=== PATIENT | female | born 1965 | race Caucasian/White ===

== ENCOUNTER 2024-07-30 07:55 | Outpatient (OUT) | payer MEDICAID, SELFPAY ==
--- NOTE | 2024-07-30 08:01 | CT_ITS ---
[address] [address] Patient Name: SHIMON FRYE MRN: [id number] date: 1965 Sex: F Assigned Patient Location: CT Current Patient Location: Accession/Order Number: [id number] Exam Date: 07/30/2024 08:09 Report Date: 07/31/2024 06:40 At the request of: RIGO GARZA Procedure: CT abdomen pelvis wo con EXAMINATION: CT abdomen pelvis wo con HISTORY: Calculus Of Kidney, Flank Pain ; right flank pain COMPARISON: CT abdomen pelvis 06/08/2022 TECHNIQUE: Axial, Coronal, and Sagittal images were obtained without and/or with IV contrast as indicated by examination type. Dose reduction techniques were achieved by using automated exposure control and/or adjustment of mA and/or kV according to patient size and/or use of iterative reconstruction technique. FINDINGS: LUNG BASES: No visible pulmonary or pleural disease. LIVER: No enlargement, atrophy, suspicious density, or significant focal lesion. BILIARY: Cholecystectomy. PANCREAS: No lesion, fluid collection, or abnormal duct dilatation. SPLEEN: No enlargement or focal lesion. ADRENALS: No mass or enlargement. KIDNEYS: No mass, obstruction, or calcification. BOWEL/MESENTERY: Moderate to large stool burden. No visible mass, obstruction, or bowel wall thickening. AORTA/VASCULAR: No aneurysm or dissection. RETROPERITONEUM: No mass or adenopathy. LYMPH NODES: No adenopathy. URINARY BLADDER: No visible focal wall thickening, lesion, or calculus. PELVIC ORGANS: Hysterectomy. No visible mass. Pelvic organs appropriate for patient age. ABDOMINAL WALL: No mass or hernia. BONES: No bony lesion or fracture. L5-S1 marked degenerative disc disease. OTHER: Negative. CT/CT abdomen pelvis wo con IMPRESSION: 1. No urinary tract calculi obstructive uropathy. 2. No acute or suspicious findings to account for patient's symptoms. 3. Moderate to large stool burden of questionable clinical significance. 4. L5-S1 marked degenerative disc disease. Electronically authenticated by: ADONIS VILLATORO Date: 07/31/2024 06:40
[2024-07-30 08:52] LABS: Bilirubin Urine NEGATIVE (NEGATIVE); Blood Urine NEGATIVE (NEGATIVE); Clarity Urine CLEAR (CLEAR); Color Urine LT. YELLOW (YELLOW); Glucose Urine UA NEGATIVE (NEGATIVE); Ketones Urine NEGATIVE (NEGATIVE); Leukocyte Esterase Urine NEGATIVE (NEGATIVE); Nitrite Urine NEGATIVE (NEGATIVE); Protein Urine NEGATIVE (NEG/TRACE); Urobilinogen Urine 0.2 EU/dL (0.2-1.0)
[2024-07-30 08:55] LABS: Basophils Percent Auto 0.9 % (0.2-2.0); Eosinophils Absolute Auto 0.1 10^3/uL (0.0-0.7); Eosinophils Percent Auto 3.5 % (0.9-7.0); Hematocrit 39.7 % (36.0-48.0); Lymphocytes Absolute Auto 1.2 10^3/uL (1.2-3.8); Lymphocytes Percent Auto 36.4 % (20.5-60.0); Mean Corpuscular HGB Conc 32.7 g/dL (29.9-35.2); Mean Corpuscular Hemoglobin 30.9 pg (26.7-34.0); Mean Corpuscular Volume 94.3 fL (81.0-99.0); Mean Platelet Volume 9.1 fL (9.5-13.5); Monocytes Absolute Auto 0.4 10^3/uL (0.3-0.8); Monocytes Percent Auto 10.6 % (1.7-12.0); Neutrophils Absolute Auto 1.7 10^3/uL (1.4-6.5); Neutrophils Percent Auto 48.6 % (43.0-75.0); Platelet Count 229 10^3/uL (150-450); Red Blood Count 4.21 10^6/uL (4.20-5.40); Red Cell Distribution Width 13.4 % (11.0-15.0); White Blood Count 3.4 10^3/uL (4.0-11.0)
[2024-07-30 08:59] LABS: Alanine Aminotransferase 24 U/L (14-59); Albumin Globulin Ratio 1.2; Albumin Level 3.8 g/dL (3.4-5.0); Alkaline Phosphatase 70 U/L (46-116); Anion Gap 8.2; Aspartate Amino Transferase 22 U/L (15-37); BUN Creatinine Ratio 31.7; Bilirubin Total 0.4 mg/dL (0.2-1.0); Calcium 9.2 mg/dL (8.5-10.1); Chloride 105 mmol/L (98-107); Chol HDL Ratio 2.9; Cholesterol 250 mg/dL (<=200); Estimated GFR (African America >60 (>=60); Estimated GFR (Non-African Ame >60 (>=60); Globulin 3.3 g/dL; Glucose 88 mg/dL (74-106); HDL Cholesterol 85 mg/dL (40-60); Potassium 4.2 mmol/L (3.5-5.1); Sodium 141 mmol/L (136-145); Total Protein 7.1 g/dL (6.4-8.2); Triglycerides 40 mg/dL (<=150)
[2024-07-30 09:11] LABS: Bacteria Urine TRACE #/HPF (NONE SEEN); Cast Seen? NONE SEEN #/LPF (NONE SEEN); Crystals Seen? None Seen #/HPF (None Seen); Mucus Urine NONE SEEN (NONE SEEN); RBC Urine 0-2 #/HPF (0-2); Squamous Epithelial Cell Urine MODERATE #/LPF (NONE/RARE); WBC Urine NONE SEEN #/HPF (NONE SEEN)
== END 2024-07-30 07:56 | disposition home or self-care (01) ==
PROVIDERS: PCP Internal Medicine; Visit Provider Internal Medicine
DX: Z00.00 Encounter for general adult medical examination without abnormal findings (principal); N20.0 Calculus of kidney; R10.9 Unspecified abdominal pain; Z87.442 Personal history of urinary calculi
CPT/HCPCS: 36415; 74176; 80053; 80061; 81001; 85025

== ENCOUNTER 2024-11-01 11:38 | Outpatient (OUT) | payer MEDICAID, SELFPAY ==
--- NOTE | 2024-11-01 11:53 | XR_ITS ---
The [address] [address] Patient Name: SHIMON FRYE MRN: [id number] date: 1965 Sex: F Assigned Patient Location: Current Patient Location: Accession/Order Number: [id number] Exam Date: 11/01/2024 12:12 Report Date: 11/04/2024 07:19 At the request of: RIGO GAZRA Procedure: XR hip LT 2V w/ pelvis PROCEDURE: XR hip LT 2V w/ pelvis COMPARISON: None. HISTORY: Low back pain, Pain of left hip M54.50, M25.552 FINDINGS: BONES:No fracture, acute abnormality, or significant arthropathy. SOFT TISSUES:Negative. No visible soft tissue swelling. EFFUSION:None visible. OTHER: Moderate stool in the rectum. XR/XR hip LT 2V w/ pelvis IMPRESSION: No acute radiographic abnormality Electronically authenticated by: JODIE CASTRO Date: 11/04/2024 07:19
--- NOTE | 2024-11-01 11:53 | US_ITS ---
The [place] [id number] Patient Name: SHIMON FRYE MRN: [id number] date: 1965 Sex: F Assigned Patient Location: US Current Patient Location: US Accession/Order Number: [id number] Exam Date: 11/01/2024 12:20 Report Date: 11/01/2024 14:14 At the request of: RIGO GARZA Procedure: US venous doppler LE LT CLINICAL DATA: Leg swelling PROCEDURE: Left lower extremity venous duplex ultrasound TECHNIQUE: Lemus-scale, color flow, and waveform spectral analysis was performed of the left lower extremity. FINDINGS: The left common femoral, profunda femoral, femoral, and popliteal veins were compressible. The saphenous vein was compressible. No venous thrombosis was seen. The veins fill with color Doppler. Augmentation was normal. US/US venous doppler LE LT IMPRESSION: 1. No acute lower extremity deep venous thrombosis. 2. No superficial venous thrombosis. Electronically authenticated by: Justino BROWN Date: 11/01/2024 14:14
--- NOTE | 2024-11-01 11:53 | XR_ITS ---
The [place] [id number] Patient Name: SHIMON FRYE MRN: [id number] date: 1965 Sex: F Assigned Patient Location: US Current Patient Location: US Accession/Order Number: [id number] Exam Date: 11/01/2024 12:12 Report Date: 11/04/2024 07:33 At the request of: RIGO GARZA Procedure: XR lumbar spine 2-3V EXAMINATION: XR lumbar spine 2-3V HISTORY: Low back pain, Pain of left hip M54.50, M25.552 COMPARISON: No relevant comparison available. FINDINGS: BONES: Normal alignment with no acute fracture or spondylolisthesis. Mild spondylosis and facet osteoarthropathy DISC SPACES: Moderate to severe narrowing with endplate sclerosis L5-S1 PARASPINOUS: Negative. No paraspinous abnormality is seen. OTHER: Negative. XR/XR lumbar spine 2-3V IMPRESSION: Degenerative changes most significant at L5-S1 Electronically authenticated by: JODIE CASTRO Date: 11/04/2024 07:33
--- OUTSIDE RECORDS SUMMARY | 2024-11-01 12:02 | XMS_ITS | CCD ---
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 Name Role Phone RAVEN BAUMAN Unavailable ADDI Bird Unavailable Unavailable RAVEN BAUMAN Unavailable Unavailable RAVEN BAUMAN Unavailable Unavailable RAVEN BAUMAN Unavailable FESTUS Dave Primary Care Physician [phone] Oscar Chris Unavailable KAYLA, DR MORTENSEN Consulting Unavailable KAYLA, DR MORTENSEN Attending Unavailable KAYLA, DR MORTENSEN Admitting Unavailable KAYLA, DR MORTENSEN Primary Care Unavailable KAYLA, DR MORTENSEN Consulting Unavailable KAYLA, DR MORTENSEN Attending Unavailable KAYLA, DR MORTENSEN Admitting Unavailable KAYLA, DR MORTENSEN Primary Care Unavailable SHAUNA, DR ADONIS Daily Consulting Unavailable KAYLA, DR MORTENSEN Consulting Unavailable KAYLA, DR MORTENSEN Attending Unavailable KAYLA, DR MORTENSEN Admitting Unavailable KAYLA, DR MORTENSEN Primary Care Unavailable KAYLA, DR MORTENSEN Primary Care Unavailable ZITA, PAULA Attending Unavailable ZITA, PAULA Admitting Unavailable RONNI NIEVES Consulting Unavailable PRASANNA, ADONIS Consulting Unavailable ZITA, PAULA Consulting Unavailable KAYLA, DR MORTENSEN Primary Care Unavailable KAYLA, DR MORTENSEN Consulting Unavailable KAYLA, DR MORTENSEN Attending Unavailable KAYLA, DR MORTENSEN Admitting Unavailable KAYLA, DR MORTENSEN Primary Care Unavailable Kayla, DO Mortensen Primary Care Provider POLA Goldman Attending Provider Festus Dickerson Primary Care Unavailable Carlos Goldman Attending Unavailable Carlos Goldman Admitting Unavailable Arvind Ross Attending Unavailable Addi HAYS Attending Unavailable Addi HAYS Attending Unavailable ANTHONY IBARRA Attending Unavailable Festus Dickerson MD Primary Care Provider Allergies Allergy Classification Reported Allergen(s) Allergy Type Date of Onset Reaction(s) Facility (16 sources) cephalexin; Translations: [CEPHALEXIN] Drug Allergy 018 AOF, hives, Unknown [facility] Repository (1 source) Corticosteroids; Translations: [CORTICOSTEROIDS (GLUCOCORTICOIDS)] Propensity to adverse reactions to drug (disorder) [address] [facility] Repository (1 source) Sulfonamides (Antibiotic); Translations: [SULFA (SULFONAMIDE ANTIBIOTICS)] Propensity to adverse reactions to drug (disorder) [address] [facility] Repository (17 sources) traMADol; Translations: [TRAMADOL] Drug Allergy 018 AOF, Itching, Unknown [facility] Repository (10 sources) Adhesive bandage; Translations: [Adhesive Bandage] Drug allergy Eruption of skin (disorder) [facility] (11 sources) Doxycycline; Translations: [doxycycline] Drug Allergy 024 Dizziness (finding), Palpitations (finding), Unknown, Palpitations [facility] (10 sources) predniSONE; Translations: [prednisone] Drug Allergy Heartburn [facility] (16 sources) Sulfamethoxazole / Trimethoprim; Translations: [sulfamethoxazole-t rimethoprim] Drug Allergy 023 hives, Unknown [facility] [place] Other (10 sources) Sulfonamides (Antibiotic); Translations: [sulfa drugs] Drug allergy hives [facility] (5 sources) Corticosteroids Propensity to adverse reactions Unknown [employer] Other (5 sources) Sulfonamides (Antibiotic) Propensity to adverse reactions Unknown [facility] Other (5 sources) ORAL CODEINE BASED PAIN MEDS Propensity to adverse reactions Unknown [employer] Other (2 sources) Cephalexin; Translations: [Keflex] Drug Allergy [facility] Repository (2 sources) Codeine; Translations: [codeine] Drug Allergy [facility] Repository (1 source) Sulfonamides (Antibiotic) Drug allergy (disorder) [facility] Repository (4 sources) Ciprofloxacin; Translations: [ciprofloxacin] Drug Allergy Unknown [facility] (3 sources) Codeine; Translations: [codeine] Drug Allergy Nausea [facility] (4 sources) gabapentin; Translations: [gabapentin] Drug Allergy Hives [facility] (4 sources) levoFLOXacin; Translations: [levofloxacin] Drug Allergy Unknown [facility] (4 sources) Phenazopyridine; Translations: [phenazopyridine] Drug Allergy Palpitations [facility] (1 source) Cephalosporins (Antibiotic) Drug Allergy Unknown [facility] (1 source) Clotrimazole Propensity to adverse reactions [facility] (1 source) Corticosteroids and derivatives Drug Allergy GI intolerance, Unknown [facility] (1 source) Prednisone Propensity to adverse reactions [facility] (1 source) Sulfanilamide Allergy to substance [facility] (1 source) Trimethoprim Drug Allergy Unknown [facility] (1 source) Wound Dressing Adhesive Drug Intolerance Rash [facility] Medications Current Medications Medication Drug Class(es) Dates Sig (Normalized) Sig (Original) acetaminophen 500 mg oral tablet (10 sources) Start: 12-03-2019 take 2 tablets by mouth every six hours as needed for pain Tylenol Extra Strength 500 mg oral tablet 1,000 mg = 2 tab(s), Oral, q6hr, PRN as needed for pain, Refills(s) 0, Pain Start Date: 12/03/19 Status: Ordered Acetaminophen (T YLENOL ARTHRITIS PAIN PO) Tylenol Arthritis Pain Active aspirin 81 mg oral tablet (10 sources) Platelet Aggregation Inhibitor, Nonsteroidal Anti-inflammatory Drug Start: 09-25-2020 aspirin 81 mg ora l tablet Oral, Refills(s) 0 Start Date: 09/25/20 Status: Ordered Aspirin Active baclofen 10 mg oral tablet (15 sources) gamma-Aminobutyric Acid-ergic Agonist Start: 09-21-2016 baclofen (Lioresal) 10 MG tablet Take 10 mg by mouth in the morning and 10 mg at noon and 10 mg in the evening and 10 mg before bedtime. 07/09/2024 Active take 0.5 tablet by mouth at bedt tai Baclofen 10 MG 1/2 TABLET Orally AT BEDTIME Active Baclofen 10 MG pack (1 source) End: 08-21-2024 take 1 tablet by mouth at bedtime Baclofen 10 MG pack 1 tablet with food or milk Orally at bedtime 08/21/2024 Discontinued (Therapy completed) benazepril hydrochloride 5 mg oral tablet (15 sources) Angiotensin Converting Enzyme Inhibitor Start: 09-21-2016 take 5 mg by mouth once daily benazepril 5 mg, Oral, Daily, Refills(s) 0, High blood pressure Start Date: 09/21/16 Status: Ordered bismuth subsalicylate (1 source) Bismuth Pepto-Bismol Active Calcium Carbonate (5 sources) Tums Active Cannabinoids (medical cannabis) (1 source) Cannabinoids (medical cannabis) Medical Marijuana Active diclofenac sodium 75 mg delayed release oral tablet (10 sources) Nonsteroidal Anti-inflammatory Drug Start: 09-25-2020 take 1 tablet by mouth once daily diclofenac sodium 75 mg Oral EC Tab 75 mg = 1 tab(s), Oral, Daily, Refills(s) 0 Start Date: 09/25/20 Status: Ordered Start: 09-25-2020 take 1 tablet by azul th once daily diclofenac sodium 75 mg Oral EC Tab 75 mg = 1 tab(s), Oral, Daily, Refills(s) 0 Start Date: 09/25/20 Status: Ordered Diclofenac Activ e dicyclomine hydrochloride 10 mg oral capsule (2 sources) Anticholinergic Start: 07-28-2023 take 1 capsule by mouth four times daily as needed Bentyl 10 mg Cap 10 mg = 1 cap(s), Oral, QID, PRN Other (see comment), For abdominal cramping, # 28 cap(s), Refills(s) 0, Pharmacy: [facility] #[id number], 158, cm, 07/28/23 8:32:00 EDT, Height/Length Dosing, 59.7, kg, 07/28/23 8:32:00 EDT, Weight Dosing Start Date: 07/28/23 Status: Ordered estradiol 0.5 mg oral tablet (16 sources) Estrogen Start: 08-21-2024 take 1 tablet by mouth once daily estradiol (Estrace) 0.5 MG tablet Indications: Hormone replacement therapy (HRT) TAKE 1 TABLET BY MOUTH EVERY DAY FOR 90 DOSES 90 tablet 3 08/21/2024 Active Start: 09-21-2016 End: 08-21-2024 take 1 tablet by mouth once daily estradiol (Estrace) 0.5 MG tablet Indications: Hormone replacement therapy (HRT) TAKE 1 TABLET BY MOUTH EVERY DAY FOR 90 DOSES 90 tablet 1 03/05/2024 08/21/2024 Discontinued (Reorder) take 1 tablet by azul th every other day Estradiol 0.5 MG 1 tablet Orally every other day Active hyoscyamine sulfate 0.12 mg / methenamine 118 mg / methylene blue 10 mg / phenyl salicylate 36 mg / sodium phosphate, monobasic 40.8 mg oral capsule (16 sources) Oxidation-Reduction Agent Start: 08-09-2024 take 1 capsule by mouth in the morning Meth-Hyo-M Bl-Na Phos-Ph Fercho (Uro-MP) 118 MG capsule Take 1 capsule by mouth in the morning and 1 capsule before bedtime. 08/09/2024 Active Start: 02-22-2023 Ustell oral ca psule 1 cap(s), Oral, BID, 60 cap(s), Refill(s) [facility] #[id number], 158, cm, 12/28/22 15:09:00 EST, Height/Length Dosing, 59.7, kg, 12/28/22 15:09:00 EST, Weight Dosing Start Date: 02/22/23 Status: Ordered Start: 08-02-2022 Ustell oral ca psule 1 cap(s), Oral, BID, 60 cap(s), Refill(s) [facility] #[id number], 158, cm, 08/02/22 11:27:00 EDT, Height/Length Dosing, 59.7, kg, 08/02/22 11:27:00 EDT, Weight Dosing Start Date: 08/02/22 Status: Ordered Start: 08-02-2021 Ustell oral ca psule 1 cap(s), Oral, BID, 60 cap(s), Refill(s) 11, [facility]/pharmacy #[id number], 158, cm, 04/26/21 8:01:00 EDT, Height/Length Dosing, 59.2, kg, 04/26/21 8:01:00 EDT, Weight Dosing Start Date: 08/02/21 Status: Ordered End: 08-21-2024 take 1 capsule by mouth every six hours Meth-Hyo-M Bl-Na Phos-Ph Fercho (Ustell) 120 MG capsule 1 capsule every 6 (six) hours. 08/21/2024 Discontinued (Therapy completed) Uribel 118 MG 1 capsule Orally prn Active ibuprofen 200 mg oral tablet (15 sources) Nonsteroidal Anti-inflammatory Drug Start: 12-03-2019 take 4 tablets by mouth every six hours as needed for pain ibuprofen 200 mg Tab 800 mg = 4 tab(s), Oral, q6hr, PRN as needed for pain, Refills(s) 0, Pain Start Date: 12/03/19 Status: Ordered Start: 09-06-2010 take 1 tablet by azul th every six hours as needed Ibuprofen (Advil) capsule take 1 tablet (200MG) by ORAL route every 6 hours as needed with food Oral 09/06/2010 Active Advil Active Ibuprofen PRN No t-Taking linaclotide 0.145 mg oral capsule (4 sources) Guanylate Cyclase-C Agonist Start: 08-17-2021 Linzess 145 MCG 1 capsule at least 30 minutes before the first meal of the day on an empty stomach Orally Once a day for 30 day(s) Jul, Active Melatonin (9 sources) Start: 09-25-2020 Melatonin Once a day (at bedtime), Refills(s) 0 Start Date: 09/25/20 Status: Ordered Multiple Vitamin (multivitamin) capsule (1 source) Multiple Vitamin (multivitamin) capsule as directed Orally Active Multivitamins and Minerals (9 sources) Start: 09-25-2020 Multivitamins and Minerals Daily, Refill(s) 0 Start Date: 09/25/20 Status: Ordered naproxen sodium 220 mg oral tablet (10 sources) Nonsteroidal Anti-inflammatory Drug Start: 09-25-2020 Aleve 220 mg, Oral, Refills(s) 0 Start Date: 09/25/20 Status: Ordered Aleve Active nitrofurantoin, macrocrystals 100 mg oral capsule (6 sources) Nitrofuran Antibacterial Start: 07-14-2021 Macrobid 100 mg Cap See Instructions, Take as needed after intercourse., # 30 caplet(s), Refills(s) 3, Pharmacy: [facility]/pharmacy #[id number], 158, cm, 04/26/21 8:01:00 EDT, Height/Length Dosing, 59.2, kg, 04/26/21 8:01:00 EDT, Weight Dosing Start Date: 07/14/21 Status: Ordered Macrodantin Not- Taking nitrofurantoin, macrocrystals 25 mg / nitrofurantoin, monohydrate 75 mg oral capsule (10 sources) Nitrofuran Antibacterial Start: 09-08-2023 Macrobid 100 mg Cap 100 mg = 1 cap(s), Oral, As Directed, after sex PRN, # 30 cap(s), Refills(s) 3, Pharmacy: [facility] #[id number], 158, cm, 07/28/23 8:32:00 EDT, Height/Length Dosing, 59.7, kg, 07/28/23 8:32:00 EDT, Weight Dosing Start Date: 09/08/23 Status: Ordered Start: 08-02-2022 take 1 capsule by [facility] twice daily Macrobid 100 mg Cap 100 mg = 1 cap(s), Oral, BID, # 30 cap(s), Refills(s) 6, Pharmacy: [facility] #[id number], 158, cm, 08/02/22 11:27:00 EDT, Height/Length Dosing, 59.7, kg, 08/02/22 11:27:00 EDT, Weight Dosing Start Date: 08/02/22 Status: Ordered nitrofurantoin, macrocrystal-monohydrate, (Macrobid) 100 MG capsule every 12 (twelve) hours. Active take 1 capsule by mo [facility] once daily at bedtime Macrobid 100 MG 1 capsule at bedtime with food Orally Once a day Active pantoprazole 40 mg delayed release oral tablet (1 source) Proton Pump Inhibitor Start: 11-29-2021 take 1 tablet by mouth every twenty-four hours Pantoprazole Sodium 40 MG 1 tablet Orally Once a day for 30 day(s) Nov, Active plecanatide 3 mg oral tablet (3 sources) Start: 08-23-2021 take 1 tablet by mouth every twenty-four hours Trulance 3 MG 1 tablet Orally Once a day for 90 days Aug, Active POLYETHYLENE GLYCOL 3350 (4 sources) Osmotic Laxative MiraLax Active Tylenol Extra Strength (5 sources) Tylenol Extra Strength PRN Active Completed/Discontinued Medications Medication Drug Class(es) Dates Sig (Normalized) Sig (Original) Antihistamine (4 sources) Antihistamine Not-Taking DELETED Baclofen 2%, Cyclobenzaprine HCl 2%, Diclofenac Na 3%, Gabapentin 6%, Lidocaine HCl 2% (4 sources) Start: 07-31-2017 DELETED Baclofen 2%, Cyclobenzaprine HCl 2%, Diclofenac Na 3%, Gabapentin 6%, Lidocaine HCl 2% as directed Topical APPLY 1-2 GRAM EVERY 6-8 HOURS NEEDED for 30 days Jul, Not-Taking Multivitamin preparation (4 sources) Multivitamin Not-Taking Promethazine (4 sources) Phenothiazine Phenergan PRN Not-Taking Problems Active Problems Problem Classification Problem Date Documented Da te Episodic/Chronic Abdominal pain (20 sources) Flank pain; Translations: [Left lower quadrant pain] Onset: 06-22-2021 Resolved: 11-29-2021 08-03-2019 Episodic Calculus of urinary tract (20 sources) History of calculus of kidney; Translations: [Personal history of urinary calculi] Onset: 06-28-2021 Resolved: 08-17-2021 Episodic Cardiac dysrhythmias (4 sources) Palpitations; Translations: [PALPITATIONS] Onset: 05-03-2022 Episodic Complications of surgical procedures or medical care (1 source) Prolapse of vaginal vault after hysterectomy; Translations: [Prolapse of vaginal vault after hysterectomy] Onset: 04-07-2023 04-07-2023 Chronic Essential hypertension (2 sources) Essential (primary) hypertension; Translations: [Hypertensive disorder] Onset: 05-05-2022 08-21-2024 Chronic Gastroduodenal ulcer (except hemorrhage) (2 sources) Peptic ulcer; Translations: [Peptic ulcer, site unspecified, unspecified as acute or chronic, without hemorrhage or perforation] Onset: 11-29-2021 Resolved: 11-29-2021 Chronic Genitourinary congenital anomalies (1 source) Congenital stricture of urethra; Translations: [Congenital stricture of urethra] Onset: 11-08-2023 08-21-2024 Chronic Genitourinary symptoms and ill-defined conditions (13 sources) Stress incontinence (female) (male); Translations: [Genuine stress incontinence] Onset: 02-16-2022 Chronic Genitourinary symptoms and ill-defined conditions (20 sources) Increased frequency of urination; Translations: [Must strain to pass urine] Onset: 06-29-2021 08-14-2019 Episodic Headache; including migraine (1 source) Migraine; Translations: [Migraine, unspecified, not intractable, without status migrainosus] Onset: 04-07-2023 04-07-2023 Chronic Menopausal disorders (1 source) Drug therapy finding; Translations: [Hormone replacement therapy] 08-21-2024 Episodic Nausea and vomiting (1 source) Nausea with vomiting, unspecified; Translations: [NAUSEA WITH VOMITING UNSPECIFIED] Onset: 06-10-2022 Episodic Other aftercare (1 source) Other prison (current) drug therapy; Translations: [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] Onset: 06-10-2022 Episodic Other bone disease and musculoskeletal deformities (9 sources) Exostosis 12-03-2019 Episodic Other circulatory disease (9 sources) H/O: hypertension 09-22-2016 Episodic Other diseases of bladder and urethra (10 sources) Overactive bladder; Translations: [Overactive bladder] Onset: 04-07-2023 12-03-2019 Chronic Other diseases of bladder and urethra (13 sources) Urethral stricture; Translations: [Unspecified urethral stricture, female] Onset: 02-16-2022 Episodic Other endocrine disorders (9 sources) Polycystic ovaries 09-22-2016 Chronic Other female genital disorders (1 source) Pain in female genitalia on intercourse; Translations: [Unspecified dyspareunia] Onset: 04-07-2023 04-07-2023 Chronic Other female genital disorders (1 source) Pruritus of vagina; Translations: [Other specified noninflammatory disorders of vagina] 08-21-2024 Episodic Other gastrointestinal disorders (15 sources) Irritable bowel syndrome; Translations: [Irritable bowel syndrome without diarrhea] Onset: 04-07-2023 09-22-2016 Chronic Other gastrointestinal disorders (5 sources) Irritable bowel syndrome characterized by constipation; Translations: [Irritable bowel syndrome with constipation] Chronic Other gastrointestinal disorders (2 sources) Irritable bowel syndrome with constipation; Translations: [Irritable bowel syndrome with constipation K58.1] Onset: 08-17-2021 Resolved: 11-29-2021 Chronic Other gastrointestinal disorders (1 source) Constipation, unspecified; Translations: [CONSTIPATION UNSPECIFIED] Onset: 06-10-2022 Episodic Other nervous system disorders (5 sources) Chronic pain; Translations: [Other chronic pain] Chronic Other nervous system disorders (9 sources) H/O: migraine 09-22-2016 Episodic Other screening for suspected conditions (not mental disorders or infectious disease) (2 sources) Patient encounter status; Translations: [Encounter for screening for malignant neoplasm of vagina] 08-21-2024 Episodic Prolapse of female genital organs (3 sources) Cystocele; Translations: [Cystocele, unspecified] Onset: 04-07-2023 04-07-2023 Chronic Residual codes; unclassified (1 source) Acquired absence of other specified parts of digestive tract; Translations: [ACQ ABSENCE OTH PART DIGESTV TRACT] Onset: 06-10-2022 Episodic Rheumatoid arthritis and related disease (1 source) Inflammatory polyarthropathy; Translations: [INFLAMMATORY POLYARTHROPATHY] Onset: 05-05-2022 Chronic Spondylosis; intervertebral disc disorders; other back problems (6 sources) Lumbosacral spondylosis; Translations: [Spondylosis without myelopathy or radiculopathy, lumbosacral region] Onset: 06-28-2021 Chronic Thyroid disorders (1 source) Autoimmune thyroiditis; Translations: [AUTOIMMUNE THYROIDITIS] Onset: 05-05-2022 Chronic Unclassified (1 source) Unknown / UNK(Unknown) Onset: 03-20-2018 Unclassified (3 sources) Body mass index 20-24 - normal 06-14-2023 Unclassified (3 sources) Non-smoker 06-14-2023 Urinary tract infections (15 sources) Urinary tract infectious disease; Translations: [Urinary tract infection, site not specified] Onset: 02-16-2022 Episodic Past or Other Problems Problem Classification Problem Date Documented Da te Episodic/Chronic Gastrointestinal hemorrhage (5 sources) Rectal hemorrhage; Translations: [Hemorrhage of anus and rectum] Episodic Malaise and fatigue (2 sources) Other malaise; Translations: [Other fatigue] Onset: 07-11-2021 Episodic Other connective tissue disease (10 sources) Fibromyalgia; Translations: [Fibromyalgia] Onset: 04-07-2023 09-22-2016 Episodic Other connective tissue disease (1 source) Enthesopathy, unspecified; Translations: [Enthesopathy, unspecified] Onset: 07-11-2022 Episodic Other connective tissue disease (1 source) Bone spur of right foot; Translations: [Other enthesopathy of right foot and ankle] Onset: 04-07-2023 04-07-2023 Episodic Other gastrointestinal disorders (5 sources) Chronic constipation; Translations: [Other constipation] Episodic Other gastrointestinal disorders (5 sources) Constipation; Translations: [Constipation, unspecified] Episodic Spondylosis; intervertebral disc disorders; other back problems (15 sources) Backache; Translations: [Dorsalgia, unspecified] Episodic Results Test Name Value Interpretation Reference Range Facility Ambulatory Visit Summaryon 0 07-24-2024 Ambulatory Visit Summary Ambulatory Visit Summary SHIMON RUIZ :1965 Visit Date:07/24/2024 Ambulatory Visit Instructions Your Diagnosis Unspecified urethral stricture, female Recurrent UTI Microscopic hematuria Stress incontinence History of kidney stones Your Care Team Attending Physician - Addi HAYS MD Primary Care Physician - FESTUS DICKERSON DO This Is Your Medications List hyoscyamine/methena/mblue /phenylsal/sodbiphos (Ustell oral capsule) nitrofurantoin (Macrobid 100 mg Cap) Contact prescribing physician if questions or concerns acetaminophen (Tylenol Extra Strength 500 mg oral tablet) baclofen (baclofen 10 mg Tab) benazepril dicyclomine (Bentyl 10 mg Cap) estradiol (estradiol 0.5 mg Tab) melatonin (Melatonin) multivitamin with minerals (Multivitamins and Minerals) Procedures Performed Dilation of urethra (08/14/2019), Removal of ureteral stent (09/20/2016), Colonoscopy (03/22/2016), Appendectomy, Cholecystectomy, Excision of osteophyte, H/O: hysterectomy, History of ureteral stent placement, History of ureteral stent placement, Lithotripsy, Removal of ureteral stent. Discharge Vitals Heart Rate (Peripheral) 82 Blood Pressure 141/91 Height 158 cm Height 62 in Weight 59.7 kg Weight 131.34 lb BMI 23.91 What to do next Scheduled Follow-Up Appointments Monday 9:30 AM EDT With: Addi HAYS MD Where: [facility] [address], [address] [place] [address]- You Need to Schedule the Following Appointments Follow Up with Addi HAYS MD, URL When: Where: [address] [facility] [address] [place] [address]- Medications What How Much When Instructions Unchanged hyoscyamine/ methena/ mblue/ phenylsal/ sodbiphos (Ustell oral capsule) 1 Capsules By Mouth 2 times a day Unchanged nitrofurantoin (Macrobid 100 mg Cap) 1 Capsules By Mouth As Directed after sex PRN Unchanged acetaminophen (Tylenol Extra Strength 500 mg oral tablet) 2 Tablets By Mouth Every 6 hours as needed for as needed for pain Contact prescribing physician if questions or concerns Unchanged baclofen (baclofen 10 mg Tab) 1 Tablets By Mouth 4 times a day Contact prescribing physician if questions or concerns Unchanged benazepril 5 Milligram By Mouth Every day Contact prescribing physician if questions or concerns Unchanged dicyclomine (Bentyl 10 mg Cap) 1 Capsules By Mouth 4 times a day as needed for Other (see comment) For abdominal cramping Contact prescribing physician if questions or concerns Unchanged estradiol (estradiol 0.5 mg Tab) 1 Tablets By Mouth Every day Contact prescribing physician if questions or concerns Unchanged melatonin (Melatonin) Once a day (at bedtime) Contact prescribing physician if questions or concerns Unchanged multivitamin with minerals (Multivitamins and Minerals) Every day Contact prescribing physician if questions or concerns Medications and Immunizations Administered Given lidocaine Top 2% Gel w/Appl 6 mL, 6 mL, Topical. For: Unspecified urethral stricture, female Allergies Adhesive Bandage (Rash) predniSONE (Heartburn) traMADol (Itching) Bactrim (hives) Cipro (Itching) Keflex (hives) Levaquin (Itching) Pyridium (Palpitations, Palpitations) codeine (Nausea) doxycycline (Dizzy, Palpitations) gabapentin (Hives) sulfa drugs (hives) Problems Ongoing - Any problem that you are currently receiving treatment for. BMI 23.0-23.9, adult Flank pain History of kidney stones LLQ pain Microscopic hematuria Nocturia Non-smoker Recurrent UTI Straining to void Stranguria Stress incontinence Unspecified urethral stricture, female Urinary tract infection Urine frequency Weak urine stream Patient Survey You may receive a survey via text or e-mail asking about your office visit. Please share your experience with us by completing your survey. We appreciate your feedback and thank you for choosing us for your care. Education Materials Urethral Stricture Urethral stricture is when the tube that drains pee (urine) from the bladder out of the body (urethra) becomes too narrow. The urethra can become narrow because of scar tissue, infection, surgery, or an injury. This can make it difficult to pee (urinate). In females, the urethra opens above the vaginal opening. In males, the urethra opens at the tip of the penis, and the urethra is much longer than it is in females. Because of the length of the male urethra, urethral stricture is much more common in males. What are the causes? In males and females, common causes of urethral stricture include: ? Urinary tract infection (UTI). ? Sexually transmitted infection (STI). ? Using a soft tube in the urethra to drain pee from the bladder (urinary catheter). ? Urinary tract surgery. In males, common causes of urethral stricture incl (more content not included)... [facility] Urology Office/Clinic Noteon 07-24-2024 Urology Office/Clinic Note Urology Office/Clinic Note Chief Complaint IO UD HPI Staff 59 year old female here for IO UD. Previous DX: unspecified urethral stricture, UTI, stress incontinence and H/O kidney stones. Pt. taking Macrobid 100mg PRN after intercourse. CHATO done 12/12/23 in [place] showed mild urinary bladder thickening measuring 5mm Cysto UD in [place] 01/16/24 dilated from 12-30 singaporean Patient states that she did move to [place] for a few months but is back to [place] and will continue to see Dr. Hays. Denies any gross hematuria or dysuria, states her stream is very weak and having a harder time emptying. History of Present Illness Tests reviewed: reviewed UA and external records. I have reviewed the previous health record information and history for this patient from Dr. Hays. I have reviewed and verified the staff HPI to be accurate for this encounter. There have been no associated fever, chills, flank pain, or blood in the urine. Denies any urinary infections since last encounter. Review of Systems PHQ Score Initial Depression Screen Score: 0 SCORE ROS - Provider Constitutional: denies weight loss, denies hot flashes. Eyes: denies eye problems. Gastrointestinal: denies nausea, denies vomiting. Cardiovascular: denies chest pain or angina. Integumentary: no dryness Musculoskeletal: denies musculoskeletal symptoms. ENMT: denies otolaryngeal symptoms. Respiratory: no shortness of breath. Heme/Lymph: denies easy bleeding tendency, denies easy bruising tendency. Psychiatric: no confusion, no anxiety. Genitourinary: See HPI. Physical Exam Vitals & Measurements HR: 82(Peripheral) BP: 141/91 HT: 62 in HT: 158 cm WT: 59.7 kg WT: 131.34 lb BMI: 23.91 General Appearance: alert , no acute distress, well nourished, well developed female. Procedure Operative Information Anesthesia Type: Local Procedure: Local Urethral Dilation Complications: None Surgical risks, benefits, details of the procedure have been explained to the patient. Full informed consent has been obtained. Intraoperative Information Prepped: Patient is brought back to the endoscopy suite. Patient is placed in modified dorso/lithotomy position. Patient prepped in the usual fashion with Betadine solution. 2% Xylocaine Jelly is placed per Urethra. The Urethra is: Tight The Urethra was dilated to: 28 Fijian with sounds. Specimens Removed: None Postoperative Information Patient is discharged home. Follow up arranged. Assessment/Plan Pt recently moved to [place] but states she will be moving back to [place]. Portions of this record may have been created with voice recognition artificial intelligence software, specifically [employer], [employer] and or [employer]. Substitutions may have occurred due to the inherent limitations of voice recognition and artificial intelligence software. 1. Unspecified urethral stricture, female (N35.92: Unspecified urethral stricture, female) Latest IO UD 06/14/23. Pt was seen by Dr. Kirk Pope when she was in [place]. S/p cysto/UD 01/16/24. Dilated to 30Fr. IO UD performed today without complications. Dilated to 28Fr. Pt has been CIC at home when needed with 14 Fr. -Follow up in 6 mos w/ IO UD 2. Recurrent UTI (N39.0: Urinary tract infection, site not specified) UA today negative for infection or blood. Asymptomatic. Continues Macrobid 100mg PRN after intercourse. 3. Microscopic hematuria (R31.29: Other microscopic hematuria) UA today shows trace-intact blood. Denies gross hematuria. Pt to call with visible blood in urine. 4. Stress incontinence (N39.3: Stress incontinence (female) (male)) Continues Ustell BID. No need for medication dosage changes. Will call for refills. 5. History of kidney stones (Z87.442: Personal history of urinary calculi) No recent imaging. Denies pain or passage of stones since last encounter. Patient is status post cystoscopy and urethral dilatation back in December 2023 by her urologist in [place]. She now has moved back to [place] permanently. She feels that repeat dilatation was indicated and this was performed without difficulty. She stopped me at 28 Fijian was unable to tolerate further. She will monitor symptomatology and we will see her back in about 6 months for consideration of repeat dilatation. She continues on the medications noted above and does still perform intermittent CIC but this is not daily. She is also on the prophylactic antibiotics as noted and will call for refills. Follow-up With When Contact Information Addi HAYS MD, URL [address] [place] [id number]- Additional Instructions: 6 mos w/ IO UD Patient Education Urethral Stricture Demetria Wheeler, personally scribed for Dr. Hays on 07/24/2024 11:32:46. . Documentation recorded by the azaleaibDemetria benton, accurately reflects the services(s) I performed and decisions (more content not included)... [facility] Comment on above: Result Comment: Elec tronically Signed By: Addi HAYS MD\.br\Date and Time Signed: 07/24/24 11:36 EDT\.br\Electronically Co-Signed By: Demetria Porras.antoinette\Date and Time Co-Signed: 07/24/24 11:33 EDT Consultation Noteon 2820 24 Consultation Note [id number]#[id number] [facility] Auth for Release of Medical Recordson 11-03-2023 Auth for Release of Medical Records [id number]#1.00TIFF [facility] Auth for Release of Medical Recordson 10-18-2023 Auth for Release of Medical Records [id number]#1.00TIFF [facility] Auto Diffon 07-28-2023 Basophils/100 WBC (Bld) 1.0 % Normal 0.0-2.0 [facility] Comment on above: Order Comment: Order Added by Discern Expert. Performed By: #### 2 076757, 8226285, 5535513, 1044723, 7980219, 94489073 ####[facility] [address] [place] [address] Basophils/Leukocytes Auto (Bld) [Pure # fraction] 0.0 E9/L Normal 0.0-0.2 [facility] Comment on above: Order Comment: Order Added by Discern Expert. Performed By: #### 2 916531, 7368884, 7655779, 5852006, 8050017, 79568120 ####[facility] [address] [place] [address] Eosinophils/100 WBC (Bld) 2.4 % Normal 0.0-8.0 [facility] Comment on above: Order Comment: Order Added by Discern Expert. Performed By: #### 2 084557, 2475651, 5148411, 8418574, 8375055, 09872118 ####[facility] [address] [place] [address] Eosinophils/Leukocyte s Auto (Bld) [Pure # fraction] 0.1 E9/L Normal 0.0-0.5 [facility] Comment on above: Order Comment: Order Added by Discern Expert. Performed By: #### 2 276978, 8792124, 2755511, 0755972, 1516025, 15701343 ####[facility] [address] [place] [address] Lymphocytes/100 WBC (Bld) 45.7 % Normal 14.0-50.0 [facility] Comment on above: Order Comment: Order Added by Discern Expert. Performed By: #### 2 922513, 1347676, 0576175, 4805505, 6084079, 22861891 ####[address] [address] Lymphocytes/Leukocyte s Auto (Bld) [Pure # fraction] 1.0 E9/L Normal 1.0-4.0 [facility] Comment on above: Order Comment: Order Added by Discern Expert. Performed By: #### 2 952946, 4753664, 1915596, 9273454, 8199692, 35025950 ####[address] [address] Monocytes/100 WBC (Bld) 15.3 % High 4.0-14.0 [facility] Comment on above: Order Comment: Order Added by Discern Expert. Performed By: #### 2 065188, 2337905, 2449644, 1410428, 8237567, 59460087 ####[address] [address] Monocytes/Leukocytes Auto (Bld) [Pure # fraction] 0.3 E9/L Normal 0.2-1.0 [facility] Comment on above: Order Comment: Order Added by Discern Expert. Performed By: #### 2 834287, 6301783, 0826939, 8681068, 1746951, 25870292 ####[address] [address] Neutrophils/100 WBC (Bld) 35.6 % Low 36.0-75.0 [facility] Comment on above: Order Comment: Order Added by Discern Expert. Performed By: #### 2 673504, 1475190, 3578757, 3735155, 2319699, 84291678 ####[address] [address] Neutrophils/Leukocyte s Auto (Bld) [Pure # fraction] 0.8 E9/L Low 2.0-7.5 [facility] Comment on above: Order Comment: Order Added by Discern Expert. Performed By: #### 2 443074, 2744542, 6293325, 2291760, 7035215, 68994995 ####[facility] [address] [place] [address] BMPon 07-28-2023 Creatinine [Mass/Vol] 0.6 mg/dL Normal 0.5-1.3 [facility] Comment on above: Performed By: #### 2 842084, 5518516, 2324234, 3664756, 9906670, 13108280 ####[facility] [address] [place] [address] Urea nitrogen [Mass/Vol] 14 mg/dL Normal 5-21 [facility] Comment on above: Performed By: #### 2 740504, 1230244, 5989760, 9196996, 0496920, 35593981 ####[facility] [address] [place] [address] Urea nitrogen/Creatinine [Mass ratio] 23 No Units High 10-20 [facility] Comment on above: Performed By: #### 2 691119, 9048481, 0380009, 3349108, 8149054, 04933525 ####[facility] [address] [place] [address] Anion gap [Moles/Vol] 11 mmol/L Normal 6-16 [facility] Comment on above: Performed By: #### 2 483817, 3598811, 3689191, 6047622, 2515393, 54367590 ####[facility] [address] [place] [address] Calcium [Mass/Vol] 9.2 mg/dL Normal 8.9-11.1 [facility] Comment on above: Performed By: #### 2 876314, 6598035, 8404166, 2022649, 1294689, 99414880 ####[facility] [address] [place] [address] Chloride [Moles/Vol] 103 mmol/L Normal 101-[address] [facility] Comment on above: Performed By: #### 2 483819, 5192623, 7195096, 6493225, 0757405, 13980488 ####[facility] [address] [place] [address] CO2 [Moles/Vol] 29 mmol/L Normal 21-31 [facility] Comment on above: Performed By: #### 2 598453, 7020823, 7092927, 4959880, 7618361, 42911460 ####[facility] [address] [place] [address] Glucose [Mass/Vol] 89 mg/dL Normal 55-199 [facility] Comment on above: Result Comment: If t his glucose result represents a fasting glucose, interpretation should refer to the following reference range: 55-99 mg/dL Performed By: #### 2 149531, 8027628, 1075272, 0191870, 2136014, 79454947 ####[facility] [address] [place] [address] Potassium [Moles/Vol] 3.9 mmol/L Normal 3.5-5.3 [facility] Comment on above: Performed By: #### 2 012971, 3235524, 1149151, 0604369, 2684859, 78730065 ####[facility] [address] [place] [address] Sodium [Moles/Vol] 139 mmol/L Normal 135-145 [facility] Comment on above: Performed By: #### 2 965646, 2690849, 0783798, 2384100, 7970502, 31832428 ####[facility] [address] [place] [address] CBC w/ Auto Diffon 3 Erythrocyte distribution width (RBC) [Ratio] 13.5 % Normal 10.9-14.2 [facility] Comment on above: Performed By: #### 2 037608, 9156146, 9288126, 4248605, 7734206, 91379454 ####[address] [address] Hematocrit (Bld) [Volume fraction] 39.8 % Normal 34.0-46.0 [facility] Comment on above: Performed By: #### 2 439819, 8755112, 9383064, 0634105, 8275513, 07517082 ####[address] [address] Hemoglobin (Bld) [Mass/Vol] 13.3 g/dL Normal 12.0-16.0 [facility] Comment on above: Performed By: #### 2 894724, 9901310, 6796216, 6661677, 4119523, 95514919 ####[address] [address] MCH (RBC) [Entitic mass] 31.0 pg Normal 27.0-34.0 [facility] Comment on above: Performed By: #### 2 859571, 1736239, 1617329, 5805407, 9826663, 47926526 ####[address] [address] MCHC (RBC) [Mass/Vol] 33.4 g/dL Normal 31.4-36.0 [facility] Comment on above: Performed By: #### 2 889601, 7541378, 8889535, 6493416, 1216116, 09433985 ####[address] [address] MCV (RBC) [Entitic vol] 92.7 fL Normal 80.0-100.0 [facility] Comment on above: Performed By: #### 2 118669, 4392662, 4293431, 7400615, 8855392, 56072415 ####[address] [address] Platelet mean volume (Bld) [Entitic vol] 7.0 fL Normal 6.4-10.8 [facility] Comment on above: Performed By: #### 2 228885, 6325541, 7598538, 3759165, 8438937, 84961182 ####[facility] [address] [place] [address] Platelets (Bld) [#/Vol] 195.0 E9/L Normal 150.0-500.0 [facility] Comment on above: Performed By: #### 2 277883, 0442031, 1031744, 9025795, 7280707, 89950787 ####[facility] [address] [place] [address] RBC (Bld) [#/Vol] 4.3 E12/L Normal 4.3-5.9 [facility] Comment on above: Performed By: #### 2 739676, 9308786, 1855899, 3784413, 1904495, 02894471 ####[facility] [address] [place] [address] WBC corrected for nucl RBC Auto (Bld) [#/Vol] 2.2 E9/L Low 4.0-11.0 [facility] Comment on above: Performed By: #### 2 589868, 5009590, 9716730, 7088016, 1842918, 85830241 ####[facility] [address] [place] [address] CHEMISTRYOrdered By: SYSTEM SYSTEM on 07-28-2023 Albumin [Mass/Vol] 4.1 g/dL Normal 3.3 - 5.0 gm/dL [facility] Albumin/Globulin [Mass ratio] 1.3 {ratio} Normal 1.1 - 2.2 [facility] ALP [Catalytic activity/Vol] 58 [iU]/d Normal 21 - 98 Int._Unit/L [facility] ALT No additional P-5'-P [Catalytic activity/Vol] 18 [iU]/d Normal 6 - 46 Int._Unit/L [facility] Anion gap [Moles/Vol] 11 mmol/L Normal 6 - 16 mEq/L [facility] AST [Catalytic activity/Vol] 26 [iU]/d Normal 5 - 43 Int._Unit/L [facility] Bilirubin [Mass/Vol] 0.5 mg/dL Normal 0.0 - 1 .1 mg/dL [facility] Bilirubin.direct [Mass/Vol] mg/dL Normal 0.1 - 0.4 mg/dL [facility] Bilirubin.indirect [Mass or moles/Vol] Unable to Calculate mg/dL Invalid Interpretation Code 0.1 - 0.9 mg/dL [facility] Calcium [Mass/Vol] 9.2 mg/dL Normal 8.9 - 11. 1 mg/dL [facility] Chloride [Moles/Vol] 103 mmol/L Normal 101 - 1 11 mmol/L [facility] CO2 [Moles/Vol] 29 mmol/L Normal 21 - 31 mmol/L [facility] Creatinine [Mass/Vol] 0.6 mg/dL Normal 0.5 - 1.3 mg/dL [facility] GFR/1.73 sq M.predicted among non-blacks MDRD (S/P/Bld) [Vol rate/Area] 103 mL/min/1.73 m2 Normal >=59mL/min/ 1.73 m2 [facility] [facility] S Globulin (S) [Mass/Vol] 3.2 g/dL Normal 1.4 - 4.0 gm/dL [facility] Glucose [Mass/Vol] 89 mg/dL Normal 55 - 199 mg/dL [facility] Lipase [Catalytic activity/Vol] 29 U/L Normal 13 - 58 unit/L [facility] Potassium [Moles/Vol] 3.9 mmol/L Normal 3.5 - 5.3 mmol/L [facility] Protein [Mass/Vol] 7.3 g/dL Normal 6.0 - 7.8 gm/dL [facility] Sodium [Moles/Vol] 139 mmol/L Normal 135 - 145 mmol/L [facility] Urea nitrogen [Mass/Vol] 14 mg/dL Normal 5 - 21 mg/dL [facility] Urea nitrogen/Creatinine [Mass ratio] 23 mg/mg High 10 - [address] Abdomen/Pelvis w/ Contras ton 07-28-2023 CT Abdomen/Pelvis w/ Contrast Exam Date/Time: 07/28/2023 10:35 EDT Reason for Exam: LLQ/Flank Pain;Other (please specify) Report IMPRESSION: No acute process in the abdomen/pelvis. EXAMINATION: CT Abdomen/Pelvis w/ Contrast HISTORY: LLQ/Flank Pain. Left flank pain. Abdominal pain. Constipation. History of hysterectomy, cholecystectomy, appendectomy TECHNIQUE: CT of the abdomen and pelvis was performed using standard technique with intravenous contrast, scanning from just above the dome of the diaphragm to the symphysis pubis. Including delayed images through the kidneys. Including sagittal and coronal reconstructions on both phases. All CT scans at this facility use dose modulation, iterative reconstruction, and/or weight based dosing when appropriate to reduce radiation dose to as low as reasonably achievable. COMPARISON: CT 09/25/2020. RESULT: Liver: Focal fat deposition at the falciform ligament, otherwise unremarkable. Biliary: Cholecystectomy. Mild prominence of the extrahepatic biliary system, similar to prior, and likely secondary to the prior cholecystectomy. Pancreas: No mass or duct dilation. Spleen: No mass or splenomegaly. Adrenals: No mass. Kidneys: No calculus or hydronephrosis. No suspicious renal lesions. Subcentimeter lesion(s) that are too small to characterize but likely benign. Delayed phase imaging with normal excreted contrast in the renal collecting system, ureters, and bladder. GI tract: No dilation or wall thickening. Appendectomy. Scattered colonic feces. Lymph nodes: No abdominal or pelvic lymphadenopathy. Mesentery/Peritoneum/Retr operitoneum: No ascites or mass. Report Vasculature: The celiac axis and SMA are patent. The portal vein and branches, splenic vein, SMV, and hepatic veins are patent. Mild arterial atherosclerotic disease without aneurysm. Pelvis: No significant free fluid. Bladder partially decompressed. Hysterectomy. Bones: No acute osseous findings. Degenerative changes. Underlying decreased bone mineral density. Small bone island left femoral head. Soft tissues: Unremarkable. Lower thorax: Unremarkable. Ordering Provider: Arvind Ross FINAL REPORT Dictated: 07/28/2023 10:42 am Juan Prasad MD. Signed (Electronic Signature): 07/28/2023 10:42 am Signed by: Juan Prasad MD Transcribed by: BECKY Technologist: GIL Technical Comments GFR (mL/min/1/73m2) 103 Contrast: Isovue 300 Contrast amount in ml's: 100 [facility] Consent for Treatmenton Consent for Treatment [id number]:12 7 [facility] Discharge Instructionson Discharge Instructions [id number]:12 7 [facility] ED Clinical Summaryon 2022 ED Clinical Summary (Inserted Image. Emily ble to display) [place] [id number] ED Clinical Summary Person Information Name: SHIMON RUIZ [facility] Age: 58 Years : 1965 Sex: Female Language: Vietnamese PCP: FESTUS DICKERSON DO Marital Status: Visit Id: Visit Reason: Constipation; Flank pain; Abdominal pain; ABD PAIN Speciality: Acuity: 3 Enc Type: Emergency Med Service: Emergency Arrival: 07/28/2023 08:12:30 Discharge: 07/28/2023 12:33:49 LOS: 000 04:21 Checkin: 07/28/2023 08:12:30 Checkout: 07/28/2023 12:33:49 Dispo Type: Home (Routine DC) EVENTS: Event Name Event Status Request Date/Time Start Date/Time Complete Date/Time Arrive Complete 07/28/2023 08:12:30 07/28/2023 08:12:30 07/28/2023 08:12:30 Document Home Meds Request 07/28/2023 08:12:30 Triage Complete 07/28/2023 08:12:30 07/28/2023 08:32:00 07/28/2023 08:32:00 Bed Assign Complete 07/28/2023 08:32:07 07/28/2023 08:32:07 07/28/2023 08:32:07 Dr Exam Complete 07/28/2023 08:32:07 07/28/2023 08:37:00 07/28/2023 08:37:00 RN Exam Complete 07/28/2023 08:32:07 07/28/2023 09:49:33 07/28/2023 09:49:33 Registration Complete 07/28/2023 08:33:10 07/28/2023 08:33:10 07/28/2023 08:33:10 Reg Complete Request 07/28/2023 08:33:10 Reg Bed Request Complete 07/28/2023 08:33:11 07/28/2023 08:33:11 07/28/2023 08:33:11 Registration Request 07/28/2023 08:37:00 EKG Complete 07/28/2023 08:40:09 07/28/2023 09:06:09 Meds Admin Complete 07/28/2023 08:40:09 07/28/2023 09:12:43 Pending Labs Complete 07/28/2023 08:40:09 07/28/2023 09:40:48 07/28/2023 10:02:20 Lab Complete 07/28/2023 08:40:09 07/28/2023 09:40:48 07/28/2023 10:02:20 Urine Collect Complete 07/28/2023 08:40:09 07/28/2023 10:02:20 Patient Care Complete 07/28/2023 08:40:09 07/28/2023 09:49:47 Pending Labs Complete 07/28/2023 09:14:47 07/28/2023 09:14:47 07/28/2023 09:42:40 Lab Complete 07/28/2023 09:14:47 07/28/2023 09:14:47 07/28/2023 09:42:40 Pending Labs Complete 07/28/2023 09:26:29 07/28/2023 09:26:29 07/28/2023 09:26:29 Pending Labs Complete 07/28/2023 09:35:01 07/28/2023 09:35:01 07/28/2023 09:35:09 Lab Complete 07/28/2023 09:35:01 07/28/2023 09:35:01 07/28/2023 09:35:09 Meds Admin Complete 07/28/2023 10:03:21 07/28/2023 10:41:06 CT Complete 07/28/2023 10:03:21 07/28/2023 10:12:41 07/28/2023 10:35:12 Discharge Complete 07/28/2023 12:20:38 07/28/2023 12:33:54 07/28/2023 12:33:54 Transfer Complete 07/28/2023 12:33:54 07/28/2023 12:33:54 07/28/2023 12:33:54 ADDRESS: [address] [place] [id number] PHYS DOC NOTES: MEDICAL INFORMATION: Prescriptions Given: New Medications [id number], [address] [place], [place] [id number], [phone] dicyclomine (Bentyl 10 mg Cap) 1 Capsules By Mouth 4 times a day as needed Other (see comment). For abdominal cramping. Refills: 0. Medications to Continue with No Changes Other Medications acetaminophen (Tylenol Extra Strength 500 mg oral tablet) 2 Tablets By Mouth every 6 hours as needed as needed for pain. baclofen (baclofen 10 mg Tab) 1 Tablets By Mouth 4 times a day. benazepril 5 Milligram By Mouth every day. estradiol (estradiol 0.5 mg Tab) 1 Tablets By Mouth every day. hyoscyamine/methena/mblue /phenylsal/sodbiphos (Ustell oral capsule) 1 Capsules By Mouth 2 times a day. Refills: 11. melatonin (Melatonin) once a day (at bedtime). multivitamin with minerals (Multivitamins and Minerals) every day. PATIENT EDUCATION INFORMATION: Instructions: Abdominal Pain, Adult Follow up: With: Address: When: FESTUS DICKERSON [address] [facility] [place] [address] Business (1) In 3 days 07/31/2023 Comments: Call the office of your primary care doctor to arrange for follow-up within the above-stated timeframe. Follow-up with your primary care doctor about this ED visit. You should review your labs, imaging, and diagnoses from this ED visit with your primary care physician. There are occasionally non-emergent findings that require additional follow-up after your ED visit. If you were prescribed medications you should discuss possible side-effects and drug interactions with your pharmacist. Call 911 or go to the nearest Emergency Department if you develop any new or worsening symptoms. Seek immediate medical attention if you develop: worsening abdominal pain, new or worsening nausea, new or worsening vomiting, new or worsening diarrhea, chest pain, shortness of breath, pain with urination, problems urinating, fever, chills, weakness, or any new or worsening symptoms. DIAGNOSIS: Abdominal pain, colicky [facility] ED Note-Physicianon 07-28-20 ED Note-Physician Basic Information Time Seen: Arvind Ross DOHernan 07/28/2023 08:37 Chief Complaint Pt presents to ED with complaints of left flank and abd pain onset last week. increased gas and constipation. History of Present Illness 58-year-old female to the emergency department chief complaint of left-sided abdominal pain that is worsened over the last week. She reports that she has chronic abdominal pain previously told her it was IBS related. She reports that she has bloating and intermittent constipation. She has had colonoscopy and EGD in the past for this. She has seen 2 GI doctors in the past. She is not currently on any medications for her IBS. She denies any urinary symptoms. She does have a history of kidney stones. She came here today to make sure that nothing different was going on given the worsening pain. Review of Systems A 10 point review of systems is negative except as noted above. Medical and Surgical History: Reviewed and noted Social history: Lives at home Tobacco: Denies Physical Exam Vitals & Measurements T: 36.5 ?C(Oral) HR: 74(Monitored) RR: 18 BP: 141/96 SpO2: 100% HT: 158 cm WT: 59.7 kg BMI: 23.91 VITALS: I have reviewed the triage vital signs. GENERAL: Well developed, well appearing adult in no acute distress. NEURO: Alert and oriented. Moves all extremities. Face is symmetric and expressive. EYES: PERRL. No scleral icterus or conjunctival injection. No discharge. HENT: Normocephalic, atraumatic. Hearing is grossly intact. Nares grossly patent and without discharge. Mucous membranes moist. NECK: No JVD. Patient moves neck without restriction. CARDIO: Rhythm regular. Normal rate. No murmur, rub, or gallop. Pulses equal bilaterally in the upper and lower extremity. No lower extremity edema. PULM: Lungs clear to auscultation in all andrade. No wheezes, rales, or rhonchi. No conversational dyspnea. No splinting, stridor, or accessory muscle use. GI/: Abdomen is soft and non-tender. Normoactive bowel sounds. EXTREMITIES: Symmetric muscle bulk. No joint swelling. No clubbing, cyanosis, or deformity. SKIN: Warm and dry. Normal turgor. No rash or lesions appreciated. PSYCH: Mood, affect, and interaction is appropriate to the setting. Medical Decision Making MDM Data External documents reviewed: Not applicable My EKG interpretation: Not applicable My CT interpretation: Reviewed as below My X-ray interpretation: Not applicable My Ultrasound interpretation: Not applicable Decision rules/scores evaluated: Not applicable Discussed with: Not applicable Treatment and Disposition ED Course: 58-year-old female to the emergency department with chief complaint of abdominal pain that is acute on chronic in nature. Vital stable, the patient is afebrile. Her abdominal examination is benign. Basic labs ordered. Will order imaging to rule out kidney stone or diverticulitis. Patient agrees with this plan. She is given Toradol and Offirmev for her symptoms. She declines narcotic pain medications. Lab work reviewed and noted. No major abnormalities. CT scan is without acute findings. Patient reexamined in the room. Her vitals remained stable. Her exam remains benign. I believe she is appropriate for outpatient discharge and follow-up. Return precautions were discussed. All questions were answered. Patient was discharged home. She was given a prescription for Bentyl to see if this helps her symptoms. Shared decision making: As above Code status: Not addressed during this visit Assessment/Plan Abdominal pain, colicky (R10.84: Generalized abdominal pain) Orders: acetaminophen + Generic Diluent 100 mL, 1,000 mg = 100 mL, Soln-IV, IV Piggyback, Once, Stop date 07/28/23 10:02:00 EDT, STAT, Start date 07/28/23 10:02:00 EDT, 400 mL/hr, Infuse over 15 minute(s) dicyclomine, 10 mg = 1 cap(s), Oral, QID, PRN Other (see comment), For abdominal cramping, # 28 cap(s), Refills(s) 0, Pharmacy: [id number], 158, cm, 07/28/23 8:32:00 EDT, Height/Length Dosing, 59.7, kg, 07/28/23 8:32:00 EDT, Weight Dosing ketorolac, 15 mg = 1 mL, Injection, IV Push, Once, Stop date 07/28/23 10:02:00 EDT, STAT, Start date 07/28/23 10:02:00 EDT, 07/28/23 10:02:00 EDT Sodium Chloride 0.9% intravenous solution, 1,000 mL, Soln-IV, IV, Once, Stop date 07/28/23 8:39:00 EDT, STAT, Start date 07/28/23 8:39:00 EDT, Infuse over 61, minute(s) Automated Diff Basic Metabolic Panel CBC w/ Auto Diff CT Abdomen/Pelvis w/ Contrast ECG 12 Lead Adult ED Cardiac Monitoring eGFR Extra Blue Tube Extra SST Tube Hepatic Function Panel Lipase Level Saline Lock Insert UA With Cult Reflex Medications Administered Given GenDil 100 mL + [id number] [F] 1000 mg, IV Piggyback ketorolac 15 mg/mL Inj, 15 mg, IV Push NS 1000 ml Bolus, 1000 mL, IV Disposition Plan Patient Discharge Condition Stable Discharge Disposition Home Discharge Prescription List Prescriptions Bentyl 10 mg Cap, 10 mg= 1 cap(s), Oral, QID, PRN Follow- (more content not included)... [facility] Comment on above: Result Comment: Elec tronically Signed By: Arvind Ross DO\.br\Date and Time Signed: 07/28/23 20:32 EDT ED Patient Education Noteon 07-28-2023 ED Patient Education Note Gastroenterology Abdominal Pain, Adult Pain in the abdomen (abdominal pain) can be caused by many things. Often, abdominal pain is not serious and it gets better with no treatment or by being treated at home. However, sometimes abdominal pain is serious. Your health care provider will ask questions about your medical history and do a physical exam to try to determine the cause of your abdominal pain. Follow these instructions at home: Medicines ? Take wwbp-dlt-itqmizk and prescription medicines only as told by your health care provider. ? Do not take a laxative unless told by your health care provider. General instructions ? Watch your condition for any changes. ? Drink enough fluid to keep your urine pale yellow. ? Keep all follow-up visits as told by your health care provider. This is important. Contact a health care provider if: ? Your abdominal pain changes or gets worse. ? You are not hungry or you lose weight without trying. ? You are constipated or have diarrhea for more than 2?3 days. ? You have pain when you urinate or have a bowel movement. ? Your abdominal pain wakes you up at night. ? Your pain gets worse with meals, after eating, or with certain foods. ? You are vomiting and cannot keep anything down. ? You have a fever. ? You have blood in your urine. Get help right away if: ? Your pain does not go away as soon as your health care provider told you to expect. ? You cannot stop vomiting. ? Your pain is only in areas of the abdomen, such as the right side or the left lower portion of the abdomen. Pain on the right side could be caused by appendicitis. ? You have bloody or black stools, or stools that look like tar. ? You have severe pain, cramping, or bloating in your abdomen. ? You have signs of dehydration, such as: ? Dark urine, very little urine, or no urine. ? Cracked lips. ? Dry mouth. ? Sunken eyes. ? Sleepiness. ? Weakness. ? You have trouble breathing or chest pain. Summary ? Often, abdominal pain is not serious and it gets better with no treatment or by being treated at home. However, sometimes abdominal pain is serious. ? Watch your condition for any changes. ? Take qjgr-pke-scgblph and prescription medicines only as told by your health care provider. ? Contact a health care provider if your abdominal pain changes or gets worse. ? Get help right away if you have severe pain, cramping, or bloating in your abdomen. This information is not intended to replace advice given to you by your health care provider. Make sure you discuss any questions you have with your health care provider. Document Revised: 12/25/2020 Document Reviewed: 03/16/2020 Elsevier Patient Education ? 2022 [employer] [facility] ED Patient Summaryon 023 ED Patient Summary (Inserted Image. Emily ble to display) [place] [id number] Patient Discharge Instructions Person Information Name: SHIMON RUIZ Age: 58 Years Arrival Date: 07/28/2023 08:12:30 Discharge Diagnosis: Abdominal pain, colicky Primary Care Physician: FESTUS DICKERSON DO Provider Information Primary Provider: Arvind Ross DO [facility] Coordinator:None The exam and treatment you received in the Emergency Department were for an urgent problem and are not intended as complete care. It is important that you follow up with a doctor, nurse practitioner, or physician?s chiropractic assistant for ongoing care. If your symptoms become worse or you do not improve as expected and you are unable to reach your usual health care provider, you should return to the Emergency Department. We are available 24 hours a day. SHIMON RUIZ has been given the following list of patient education materials, prescriptions and follow-up instructions: Follow-up Instructions: With: Address: When: FESTUS DICKERSON [address] [place], [place] [id number] [facility] (1) In 3 days 07/31/2023 Comments: Call the office of your primary care doctor to arrange for follow-up within the above-stated timeframe. Follow-up with your primary care doctor about this ED visit. You should review your labs, imaging, and diagnoses from this ED visit with your primary care physician. There are occasionally non-emergent findings that require additional follow-up after your ED visit. If you were prescribed medications you should discuss possible side-effects and drug interactions with your pharmacist. Call 911 or go to the nearest Emergency Department if you develop any new or worsening symptoms. Seek immediate medical attention if you develop: worsening abdominal pain, new or worsening nausea, new or worsening vomiting, new or worsening diarrhea, chest pain, shortness of breath, pain with urination, problems urinating, fever, chills, weakness, or any new or worsening symptoms. In the event that this physician does not participate in your insurance network, please consult with your insurance company to find a nearby participating provider. Patient Education Materials: Abdominal Pain, Adult A MESSAGE TO ALL PATIENTS REGARDING OPIOIDS PRESCRIPTION OPIOIDS: WHAT YOU NEED TO KNOW Prescription opioids can be used to help relieve iiaryadb-mb-quoztd pain and are often prescribed following a surgery or injury, or for certain health conditions. These medications can be an important part of the treatment but also come with serious risks. It is important to work with your healthcare provider to make sure you are getting the safest, most effective care. WHAT ARE THE RISKS AND SIDE EFFECTS OF OPIOID USE? Prescription opioids carry serious risks of addiction and overdose, especially with prolonged use. An opioid overdose, often marked by slowed breathing, can cause sudden . The use of prescription opioids can have a number of side effects as well, even when taken as directed: ? Tolerance?meaning you might need to take more of the medication for the same pain relief ? Physical dependence?meaning you have symptoms of withdrawal when a medication is stopped ? Increased sensitivity to pain ? Constipation ? Nausea, vomiting, and dry mouth ? Sleepiness and dizziness ? Confusion ? Depression ? Low levels of testosterone that can result in lower sex drive, energy, and strength ? Itching and sweating RISKS ARE GREATER WITH: ? History of drug misuse, substance use disorder, or overdose ? Mental health conditions (such as depression or anxiety) ? Sleep apnea ? Older age (65 years and older) ? Avoid alcohol while taking prescription opioids. Also, unless specifically advised by your health care provider, medications to avoid include: ? Benzodiazepines (such as Xanax or Valium) ? Muscle relaxants (such as Soma or Flexeril) ? Hypnotics (such as Ambien or Lunesta) ? Other prescription opioids KNOW YOUR OPTIONS Talk to your health care provider about ways to manage your pain that don?t involve prescription opioids. Some of these options may actually work better and have fewer risks and side effects. Options may include: ? Pain relievers such as acetaminophen, ibuprofen, and naproxen ? Some medication that are also used for depression or seizures ? Physical therapy and exercise ? Cognitive behavioral therapy, a psychological, goal-directed approach, in which patients learn how to modify physical, behavioral, and emotional triggers of pain and stress. IF YOU ARE PRESCRIBED OPIOIDS FOR PAIN: ? Never take opioids in greater amounts or more often than prescribed. ? Follow up with your primary health care provider. o Work together to create a plan on how to manage your pain. o Talk about ways to help manage your pain that don?t inv (more content not included)... [facility] HEMATOLOGYOrdered By: SYSTEM SYSTEM on 07-28-2023 Basophils/100 WBC (Bld) 1.0 % Normal 0.0 - 2.0 % [facility] HemeAutoSS Basophils/Leukocytes Auto (Bld) [Pure # fraction] 0.0 E9/L Normal 0.0 - 0.2 E9/L [facility] HemeAutoSS Eosinophils/100 WBC (Bld) 2.4 % Normal 0.0 - 8.0 % [facility] HemeAutoSS Eosinophils/Leukocyte s Auto (Bld) [Pure # fraction] 0.1 E9/L Normal 0.0 - 0.5 E9/L [facility] HemeAutoSS Lymphocytes/100 WBC (Bld) 45.7 % Normal 14.0 - 50.0 % [facility] HemeAutoSS Lymphocytes/Leukocyte s Auto (Bld) [Pure # fraction] 1.0 E9/L Normal 1.0 - 4.0 E9/L [facility] HemeAutoSS Monocytes/100 WBC (Bld) 15.3 % High 4.0 - 14.0 % [facility] HemeAutoSS Monocytes/Leukocytes Auto (Bld) [Pure # fraction] 0.3 E9/L Normal 0.2 - 1.0 E9/L [facility] HemeAutoSS Neutrophils/100 WBC (Bld) 35.6 % Low 36.0 - 75.0 % [facility] HemeAutoSS Neutrophils/Leukocyte s Auto (Bld) [Pure # fraction] 0.8 E9/L Low 2.0 - 7.5 E9/L [facility] HemeAutoSS HEMATOLOGYOrdered By: Valentina Hawley on 07-28-2023 Erythrocyte distribution width (RBC) [Ratio] 13.5 % Normal 10.9 - 14.2 % [facility] HemeAutoSS Hematocrit (Bld) [Volume fraction] 39.8 % Normal 34.0 - 46.0 % [facility] HemeAutoSS Hemoglobin (Bld) [Mass/Vol] 13.3 g/dL Normal 12.0 - 16.0 gm/dL [facility] HemeAutoSS MCH (RBC) [Entitic mass] 31.0 pg Normal 27.0 - 34.0 pg [facility] HemeAutoSS MCHC (RBC) [Mass/Vol] 33.4 g/dL Normal 31.4 - 36.0 gm/dL [facility] HemeAutoSS MCV (RBC) [Entitic vol] 92.7 fL Normal 80.0 - 100.0 fL [facility] HemeAutoSS Platelet mean volume (Bld) [Entitic vol] 7.0 fL Normal 6.4 - 10.8 fL [facility] HemeAutoSS Platelets (Bld) [#/Vol] 195.0 E9/L Normal 150.0 - 500.0 E9/L [facility] HemeAutoSS RBC (Bld) [#/Vol] 4.3 E12/L Normal 4.3 - 5.9 E12/L [facility] HemeAutoSS WBC corrected for nucl RBC Auto (Bld) [#/Vol] 2.2 E9/L Low 4.0 - 11.0 E9/L [facility] HemeAutoSS Hep Func Panelon 07-28-2023 Bilirubin.indirect [Mass or moles/Vol] UTC Abnormal 0.1-0.9 [facility] Comment on above: Result Comment: Resu lt verified by Discern Rule. Performed result UT (Unable to Calculate) was sent as an Alpha code due the inability to calculate a valid numeric value. Performed By: #### 2 [id number], 2223352, 2555137, 2512584, 6601833, [id number] ####[facility] [address] [place] [address] Albumin [Mass/Vol] 4.1 g/dL Normal 3.3-5.0 [facility] Comment on above: Performed By: #### 2 763363, 1929495, 8599818, 6792521, 2515000, 84103245 ####[facility] [address] [place] [address] Albumin/Globulin (S) [Mass conc ratio] 1.3 Normal 1.1-2.2 [facility] Comment on above: Performed By: #### 2 243294, 9690333, 9558268, 7983431, 1891362, 77765964 ####[facility] [address] [place] [address] ALP [Catalytic activity/Vol] 58 Int._Unit/L Normal 21-98 [facility] Comment on above: Performed By: #### 2 603154, 6268027, 0367781, 4575664, 7413373, 41615424 ####[facility] [address] [place] [address] ALT No additional P-5'-P [Catalytic activity/Vol] 18 Int._Unit/L Normal 6-46 [facility] Comment on above: Performed By: #### 2 950804, 7096770, 3438461, 1525424, 2564656, 95985364 ####[facility] [address] [place] [address] AST [Catalytic activity/Vol] 26 Int._Unit/L Normal 5-43 [facility] Comment on above: Performed By: #### 2 397134, 7225579, 6857523, 3359070, 4806611, 22405897 ####[facility] [address] [place] [address] Bilirubin [Mass/Vol] 0.5 mg/dL Normal 0.0-1.1 [facility] Comment on above: Performed By: #### 2 665635, 1802775, 0046046, 7785192, 3397215, 23300028 ####[facility] [address] [place] [address] Globulin (S) [Mass/Vol] 3.2 g/dL Normal 1.4-4.0 [facility] Comment on above: Performed By: #### 2 564887, 0551014, 4954070, 7185156, 2674169, 15190950 ####[facility] [address] [place] [address] Protein [Mass/Vol] 7.3 g/dL Normal 6.0-7.8 [facility] Comment on above: Performed By: #### 2 815667, 2215638, 2056724, 0929722, 5585077, 11325979 ####[facility] [address] [place] [address] Bilirubin.direct [Mass/Vol] mg/dL Normal 0.1-0.4 [facility] Comment on above: Performed By: #### 2 528606, 0316478, 2446808, 5929530, 7713492, 27771527 ####[facility] [address] [place] [address] Lipase Levelon 07-28-2023 Lipase [Catalytic activity/Vol] 29 U/L Normal 13-58 [facility] Comment on above: Performed By: #### 2 437031, 1388144, 7494531, 7733481, 7075280, 32632552 ####[facility] [address] [place] [address] UA With Cult Reflexon 2022 Bacteria LM Ql (Urine sed) TRACE Normal Trace [facility] Comment on above: Performed By: #### 1 2697415 ####[facility] [address] [facility] [place] [address] Bilirubin Ql (U) Negative Normal Negative [facility] Comment on above: Performed By: #### 1 9285332 ####[address] [facility] [place] [address] Clarity (U) CLEAR Normal Clear [facility] Comment on above: Performed By: #### 1 3038393 ####[facility] [address] [place] [address], [place] [address] Color (U) YELLOW Normal Yellow [facility] Comment on above: Performed By: #### 1 8661146 ####[facility] [address] [place] [place] [address] Epithelial cells.squamous LM.HPF (Urine sed) [#/Area] 3-4 Normal 0-[address] [facility] Comment on above: Performed By: #### 1 1471662 ####[facility] [address] [place] [address] Glucose Test strip (U) [Mass/Vol] Negative Normal Negative [facility] Comment on above: Performed By: #### 1 3142876 ####[facility] [address] [place] [address] Hemoglobin Ql (U) Negative Normal Negative [facility] Comment on above: Performed By: #### 1 8350856 ####[facility] [address] [facility] [place] [address] Ketones (U) [Mass/Vol] Negative Normal Negative [facility] Comment on above: Performed By: #### 1 4949679 ####Mejia [address] [address] Ten Sleep.plasma/Lithiu m.RBC (Bld) [Mass ratio] 0-3 Normal 0-3 [facility] Comment on above: Performed By: #### 1 8409316 ####[address] [address] Nitrite Ql (U) Negative Normal Negative [facility] Comment on above: Performed By: #### 1 5366130 ####[place] [address]57 pH (U) 7.5 [pH] Invalid Interpretation Code 5.0-9.0 [facility] Comment on above: Performed By: #### 1 0418219 ####[address] [address] Protein (U) [Mass/Vol] Negative Normal Negative [facility] Comment on above: Performed By: #### 1 7656428 ####[place] [address]6057 Specific gravity (U) [Rel density] 1.010 Invalid Interpretation Code 1.005-1.030 [facility] Comment on above: Performed By: #### 1 2363784 ####[address] [address] Type of Urine collection method Clean Catch Normal [facility] Comment on above: Performed By: #### 1 2915391 ####[address] [address] Urobilinogen Qn (U) 0.2 {Josie'U}/dL Normal 0.0-1.0 [facility] Comment on above: Performed By: #### 1 1959121 ####[address] [address] WBC Auto Ql (U) Negative Normal Negative [facility] Comment on above: Performed By: #### 1 1565185 ####[address] [address] WBC LM.HPF (Urine sed) [#/Area] 0-5 Normal 0-5 [facility] Comment on above: Performed By: #### 1 3359947 ####[facility] [address] [place] [address] URINALYSISOrdered By: Anmol Lucero on 07-28-2023 Bacteria LM Ql (Urine sed) Trace /HPF Normal Trace/HPF [facility] UA Auto SS Bilirubin Ql (U) Negative (07/28/23 9:40 AM) Normal Negative [facility] UA Auto SS Clarity (U) Clear (07/28/23 9:40 AM) Normal Clear [facility] UA Auto SS Color (U) Yellow (07/28/23 9:40 AM) Normal Yellow [facility] UA Auto SS Epithelial cells.squamous LM.HPF (Urine sed) [#/Area] 3-4 /HPF Normal 0-2/HPF [facility] UA Aut o SS Glucose Test strip (U) [Mass/Vol] Negative (07/28/23 9:40 AM) Normal Negative [facility] UA Auto SS Hemoglobin Ql (U) Negative (07/28/23 9:40 AM) Normal Negative [facility] UA Auto SS Ketones (U) [Mass/Vol] Negative (07/28/23 9:40 AM) Normal Negative [facility] UA Auto SS Ten Sleep.plasma/Lithiu m.RBC (Bld) [Mass ratio] 0-3 /HPF Normal 0-3/HPF [facility] UA Auto SS Nitrite Ql (U) Negative (07/28/23 9:40 AM) Normal Negative [facility] UA Auto SS pH (U) 7.5 *NA* (07/28/23 9:40 AM) Invalid Interpretation Code 5.0 - 9.0 [facility] UA Auto SS Protein (U) [Mass/Vol] Negative (07/28/23 9:40 AM) Normal Negative [facility] UA Auto SS Specific gravity (U) [Rel density] 1.010 *NA* (07/28/23 9:40 AM) Invalid Interpretation Code 1.005 - 1.030 [facility] UA Auto SS UA Spec Desc Clean Catch (07/28/23 9:40 AM) Normal [facility] UA Auto SS Urobilinogen Qn (U) 0.1456370 {Josie'U}/dL Normal 0.0 - 1.0 EU/dL [facility] UA Auto SS WBC Auto Ql (U) Negative (07/28/23 9:40 AM) Normal Negative [facility] UA Auto SS WBC LM.HPF (Urine sed) [#/Area] 0-5 /HPF Normal 0-5/HPF [facility] UA Auto SS eGFRon 07-28-2023 GFR/1.73 sq M.predicted among non-blacks MDRD (S/P/Bld) [Vol rate/Area] 103 mL/min/1.73 m2 Normal >=59 [facility] Comment on above: Order Comment: Order added by Discern Expert. Result Comment: Crane Hoist Or Lift Operator kanika kidney disease could be indicated at eGFR's of less than 60 mL/min/1.73m2. Kidney failure is indicated at less than 15 mL/min/1.73m2. Performed By: #### 2 638115, 6444027, 0118990, 5824586, 8458650, 52450765 ####[facility] [address] [place] [id number] CHEMISTRYOrdered By: SYSTEM SYSTEM on 02-06-2023 25-hydroxyvitamin D3 [Mass/Vol] 39.7 ng/mL Normal 30.0 - 100.0 ng/mL FT Remisol Free T4 [Mass/Vol] 1.08 ng/dL Normal 0.58 - 1. 64 ng/dL [facility] Remisol TSH Qn 2.68 m[IU]/L Normal 0.34 - 5.60 mcIU/mL [facility] Remisol Basic Metabolic Panelon 06-21 Calcium [Mass/Vol] 9.4 mg/dL Normal 8.2-10.2 [facility] Comment on above: Order Comment: PT NO T FASTING Reason for Exam Bone spur of right foot Result Comment: PERF ORMED BY: [place] [address] PATHOLOGIST COUNTY ASSESSOR NEVIN CASAS M.D. Performed By: #### C BC, BMP #### [facility] [address] [place] [id number] [place] Chloride [Moles/Vol] 103 mmol/L Normal 95-114 [facility] Comment on above: Order Comment: PT NO T FASTING Reason for Exam Bone spur of right foot Performed By: #### C BC, BMP #### [facility] [address] [place] [id number] [place] CO2 [Moles/Vol] 31.5 mmol/L High 22.0-30.[address] [facility] Comment on above: Order Comment: PT NO T FASTING Reason for Exam Bone spur of right foot Performed By: #### C BC, BMP #### [facility] [address] Creatinine [Mass/Vol] 0.64 mg/dL Normal 0.44-1.03 [facility] Comment on above: Order Comment: PT NO T FASTING Reason for Exam Bone spur of right foot Performed By: #### C BC, BMP #### [facility] [address] Estimated GFR ( Laura > 60 [facility] Comment on above: Order Comment: PT NO T FASTING Reason for Exam Bone spur of right foot Result Comment: GFR estimated reference range: According to KDOQI guidelines, <60 ml/min/1.73m2 is sufficient to diagnose a patient with chronic kidney disease. Performed By: #### C BC, BMP #### [facility] [address] Estimated GFR (Non- Am > 60 [facility] Comment on above: Order Comment: PT NO T FASTING Reason for Exam Bone spur of right foot Performed By: #### C BC, BMP #### [facility] [address] Glucose [Mass/Vol] 61 mg/dL Low 70-100 [facility] Comment on above: Order Comment: PT NO T FASTING Reason for Exam Bone spur of right foot Result Comment: [place] om Glucose Reference Range is dependent on time and content of last meal. Glucose of more than 200 mg/dL in a nonstressed, ambulatory subject supports the diagnosis of Diabetes Mellitus. ADA recommended reference range Performed By: #### C BC, BMP #### [facility] [address] [place] [id number] [place] Potassium [Moles/Vol] 4.0 mmol/L Normal 3.5-5.1 [facility] Comment on above: Order Comment: PT NO T FASTING Reason for Exam Bone spur of right foot Performed By: #### C BC, BMP #### [facility] [address] Sodium [Moles/Vol] 141 mmol/L Normal 136-146 [facility] Comment on above: Order Comment: PT NO T FASTING Reason for Exam Bone spur of right foot Performed By: #### C BC, BMP #### [facility] [address] Urea nitrogen [Mass/Vol] 16 mg/dL Normal 9-23 [facility] Comment on above: Order Comment: PT NO T FASTING Reason for Exam Bone spur of right foot Performed By: #### C BC, BMP #### [facility] [address] Basophils Auto (Bld) [#/Vol] Ordered By: Carlos Goldman on 07-11-2022 Basophils (Bld) [#/Vol] 0.0 10*3/uL 0.0-0.2 [facility] Basophils/100 WBC Auto (Bld) Ordered By: Carlos Goldman on 07-11-2022 Basophils/100 WBC (Bld) 1.2 % . [facility] Blood hemoglobin measurement (mass/volume)Ordered By: Carlos Goldman on 07-11-2022 Hemoglobin (Bld) [Mass/Vol] 12.6 g/dL 11.8-15.4 [facility] Blood leukocytes automated c ount (number/volume)Ordered By: Carlos Goldman on 07-11-2022 WBC (Bld) [#/Vol] 2.9 10*3/uL 4.5-11.0 [facility] Complete Blood Count Auto Di ffon 07-11-2022 Basophils (Bld) [#/Vol] 0.0 10*3/uL Normal 0.0-0.2 [facility] Comment on above: Order Comment: Reaso n for Exam Bone spur of right foot Result Comment: PERF ORMED BY: [place] [address] PATHOLOGIST COUNTY ASSESSOR JIANLAN SUN M.D. Performed By: #### C BC, BMP #### [facility] [address] [place] [address] [place] Basophils/100 WBC (Bld) 1.2 % Normal . [facility] Comment on above: Order Comment: Reaso n for Exam Bone spur of right foot Performed By: #### C BC, BMP #### [facility] [address] Eosinophils (Bld) [#/Vol] 0.1 10*3/uL Normal 0.0-0.45 [facility] Comment on above: Order Comment: Reaso n for Exam Bone spur of right foot Performed By: #### C BC, BMP #### [address] Eosinophils/100 WBC (Bld) 3.7 % Normal . [facility] Comment on above: Order Comment: Reaso n for Exam Bone spur of right foot Performed By: #### C BC, BMP #### [address] Erythrocyte distribution width (RBC) [Ratio] 13.9 % Normal 11.9-15.3 [facility] Comment on above: Order Comment: Reaso n for Exam Bone spur of right foot Performed By: #### C BC, BMP #### [address] Hematocrit (Bld) [Volume fraction] 38.6 % Normal 34.0-46.4 [facility] Comment on above: Order Comment: Reaso n for Exam Bone spur of right foot Performed By: #### C BC, BMP #### [place] [address] [place] Hemoglobin (Bld) [Mass/Vol] 12.6 g/dL Normal 11.8-15.4 [facility] Comment on above: Order Comment: Reaso n for Exam Bone spur of right foot Performed By: #### C BC, BMP #### [address] Lymphocytes (Bld) [#/Vol] 1.1 10*3/uL Normal 1.00-4.8 [facility] Comment on above: Order Comment: Reaso n for Exam Bone spur of right foot Performed By: #### C BC, BMP #### [address] Lymphocytes/100 WBC (Bld) 38.5 % Normal . [facility] Comment on above: Order Comment: Reaso n for Exam Bone spur of right foot Performed By: #### C BC, BMP #### [address] MCH (RBC) [Entitic mass] 30.9 pg Normal 24.7-34.3 [facility] Comment on above: Order Comment: Reaso n for Exam Bone spur of right foot Performed By: #### C BC, BMP #### [address] MCV (RBC) [Entitic vol] 94.8 fL Normal 80-100 [facility] Comment on above: Order Comment: Reaso n for Exam Bone spur of right foot Performed By: #### C BC, BMP #### [address] Mean Corpuscular HGB Conc 32.6 g/dL Normal 32.0-35.0 [facility] Comment on above: Order Comment: Reaso n for Exam Bone spur of right foot Performed By: #### C BC, BMP #### [address] Monocytes (Bld) [#/Vol] 0.4 10*3/uL Normal 0.0-0.8 [facility] Comment on above: Order Comment: Reaso n for Exam Bone spur of right foot Performed By: #### C BC, BMP #### [place] [address] [place] Monocytes/100 WBC (Bld) 12.5 % Normal . [facility] Comment on above: Order Comment: Reaso n for Exam Bone spur of right foot Performed By: #### C BC, BMP #### [place] [address] [place] Neutrophils (Bld) [#/Vol] 1.3 10*3/uL Low 1.8-7.7 [facility] Comment on above: Order Comment: Reaso n for Exam Bone spur of right foot Performed By: #### C BC, BMP #### [facility] [address] [place] [address] [place] Neutrophils/100 WBC (Bld) 44.1 % Normal . [facility] Comment on above: Order Comment: Reaso n for Exam Bone spur of right foot Performed By: #### C BC, BMP #### [facility] [address] [place] [address] [place] Nucleated RBC/100 WBC (Bld) [Ratio] 0.0 % Normal 0-0.5 [facility] Comment on above: Order Comment: Reaso n for Exam Bone spur of right foot Performed By: #### C BC, BMP #### [place] [address] [place] Platelet mean volume (Bld) [Entitic vol] 7.1 fL Normal 6.3-10.7 [facility] Comment on above: Order Comment: Reaso n for Exam Bone spur of right foot Performed By: #### C BC, BMP #### [facility] [address] [place] [address] [place] Platelets (Bld) [#/Vol] 265 10*3/uL Normal 150-450 [facility] Comment on above: Order Comment: Reaso n for Exam Bone spur of right foot Performed By: #### C BC, BMP #### [facility] [address] [place] [address] [place] RBC (Bld) [#/Vol] 4.07 10*6/uL Normal 3.60-5.00 [facility] Comment on above: Order Comment: Reaso n for Exam Bone spur of right foot Performed By: #### C BC, BMP #### [facility] [address] [place] [address] [place] WBC (Bld) [#/Vol] 2.9 10*3/uL Low 4.5-11.0 [facility] Comment on above: Order Comment: Reaso n for Exam Bone spur of right foot Performed By: #### C BC, BMP #### [facility] [address] Creatinine and Glomerular fi ltration rate.predicted panel (S/P/Bld)Ordered By: Carlos Goldman on 07-11-2022 Creatinine [Mass/Vol] 0.64 mg/dL 0.44-1.03 [facility] ECG 12 lead ECGon 07-11-2022 ECG 12 lead ECG [facility] [address] [place] [address] [place] [address] Electrocardiograph Report Signed Patient: Shimon Ruiz MR#: [id number] : 1965 Acct:[id number] Age/Sex: 57 / F ADM Date: 07/11/22 Loc: Room: Type: [facility] Attending Dr: Carlos Goldman DPMarisabel Ordering Provider: Carlos Goldman DPM Date of Service: 07/11/22 ECG/ECG 12 lead ECG: surgery;Bone spur of right foot Copies to: Test Reason : Blood Pressure : / mmHG Vent. Rate : 073 BPM Atrial Rate : 073 BPM P-R Int : 142 ms QRS Dur : 078 ms QT Int : 388 ms P-R-T Axes : 080 060 039 degrees QTc Int : 427 ms Normal sinus rhythm Normal ECG When compared with ECG of 29-AUG-2016 12:55, No significant change was found Confirmed by GREY VENEGAS [facility] Escobar ([id number]) on 07/11/2022 6:40:02 PM Referred By: Electronically Signed By:KIRK EDMONDS MD [facility] Transcribed By: MUS Signed By Anthony Edmonds MD 07/11/22 1840 Normal [facility] Eosinophils Auto (Bld) [#/Vo l]Ordered By: Carlos Goldman on 07-11-2022 Eosinophils (Bld) [#/Vol] 0.1 10*3/uL 0.0-0.45 [facility] Eosinophils/100 WBC Auto (Bl d)Ordered By: Carlos Goldman on 07-11-2022 Eosinophils/100 WBC (Bld) 3.7 % . [facility] Erythrocyte distribution wid th Auto (RBC) [Ratio]Ordered By: Carlos Goldman on 07-11-2022 Erythrocyte distribution width (RBC) [Ratio] 13.9 % 11.9-15.3 [facility] Estimated glomerular filtrat ion rate (GFR) non- AmericanOrdered By: Carlos Goldman on 07-11-2022 GFR/1.73 sq M.predicted among non-blacks MDRD (S/P/Bld) [Vol rate/Area] > 60 mL/Min [facility] Hematocrit Auto (Bld) [Volum e fraction]Ordered By: Carlos Goldman on 07-11-2022 Hematocrit (Bld) [Volume fraction] 38.6 % 34.0-46.4 [facility] Laboratory - Hematology and Cell countsOrdered By: Carlos Goldman on 07-11-2022 Nucleated RBC/100 WBC (Bld) [Ratio] 0.0 % 0-0.5 [facility] Lymphocytes Auto (Bld) [#/Vo l]Ordered By: Carlos Goldman on 07-11-2022 Lymphocytes (Bld) [#/Vol] 1.1 10*3/uL 1.00-4.8 [facility] Lymphocytes/100 WBC Auto (Bl d)Ordered By: Carlos Goldman on 07-11-2022 Lymphocytes/100 WBC (Bld) 38.5 % . [facility] MCH Auto (RBC) [Entitic mass ]Ordered By: Carlos Goldman on 07-11-2022 MCH (RBC) [Entitic mass] 30.9 pg 24.7-34.3 [facility] MCHC Auto (RBC) [Mass/Vol]Or dered By: Carlos Goldman on 07-11-2022 MCHC (RBC) [Mass/Vol] 32.6 g/dL 32.0-35.0 [facility] MCV Auto (RBC) [Entitic vol] Ordered By: Carlos Goldman on 07-11-2022 MCV (RBC) [Entitic vol] 94.8 fL 80-100 [facility] Monocytes Auto (Bld) [#/Vol] Ordered By: Carlos Goldman on 07-11-2022 Monocytes (Bld) [#/Vol] 0.4 10*3/uL 0.0-0.8 [facility] Monocytes/100 WBC Auto (Bld) Ordered By: Carlos Goldman on 07-11-2022 Monocytes/100 WBC (Bld) 12.5 % . [facility] Neutrophils Auto (Bld) [#/Vo l]Ordered By: Carlos Goldman on 07-11-2022 Neutrophils (Bld) [#/Vol] 1.3 10*3/uL 1.8-7.7 [facility] Neutrophils/100 WBC Auto (Bl d)Ordered By: Carlos Goldman on 07-11-2022 Neutrophils/100 WBC (Bld) 44.1 % . [facility] No Panel InformationOrdered By: Carlos Goldman on 07-11-2022 Estimated GFR () > 60 mL/Min [facility] Comment on above: GFR estimated refere nce range: According to KDOQI guidelines, <60 ml/min/1.73m2 is sufficient to diagnose a patient with chronic kidney disease. Pharmacy Creatinine Clearance (Chem N/A [facility] Platelet mean volume Auto (B ld) [Entitic vol]Ordered By: Carlos Goldman on 07-11-2022 Platelet mean volume (Bld) [Entitic vol] 7.1 fL 6.3-10.7 [facility] Platelets Auto (Bld) [#/Vol] Ordered By: Carlos Goldman on 07-11-2022 Platelets (Bld) [#/Vol] 265 10*3/uL 150-450 [facility] RBC Auto (Bld) [#/Vol]Ordere d By: Carlos Goldman on 07-11-2022 RBC (Bld) [#/Vol] 4.07 10*6/uL 3.60-5.00 [facility] Serum or plasma calcium miguelito urement (mass/volume)Ordered By: Carlos Goldman on 07-11-2022 Calcium [Mass/Vol] 9.4 mg/dL 8.2-10.2 [facility] Serum or plasma chloride bailey surement (moles/volume)Ordered By: Carlos Goldman on 07-11-2022 Chloride [Moles/Vol] 103 mmol/L 95-114 [facility] Serum or plasma glucose miguelito urement (mass/volume)Ordered By: Carlos Goldman on 07-11-2022 Glucose [Mass/Vol] 61 mg/dL 70-100 [facility] Comment on above: ADA recommended refe rence range Random Glucose Reference Range is dependent on time and content of last meal. Glucose of more than 200 mg/dL in a nonstressed, ambulatory subject supports the diagnosis of Diabetes Mellitus. Serum or plasma potassium me asurement (moles/volume)Ordered By: Carlos Goldman on 07-11-2022 Potassium [Moles/Vol] 4.0 mmol/L 3.5-5.1 [facility] Serum or plasma sodium measu rement (moles/volume)Ordered By: Carlos Goldman on 07-11-2022 Sodium [Moles/Vol] 141 mmol/L 136-146 [facility] Serum or plasma total carbon dioxide measurement (moles/volume)Ordered By: Carlos Goldman on 07-11-2022 CO2 [Moles/Vol] 31.5 mmol/L 22.0-30.[address] [facility] Serum or plasma urea nitroge n measurement (mass/volume)Ordered By: Carlos Goldman on 07-11-2022 Urea nitrogen [Mass/Vol] 16 mg/dL 9-23 [facility] XR chest 2V*on 07-11-2022 XR chest 2V* [facility] [place] [address] XRay Report Signed Patient: Shimon Ruiz MR#: [id number] : 1965 Acct:[id number] Age/Sex: 57 / F ADM Date: 07/11/22 Loc: Room: Type: [facility] Attending Dr: Carlos Goldman DPMarisbael Copies to: Carlos Goldman DPM Ordering Provider: Carlos Goldman DPM Date of Service: 07/11/22 XR/XR chest 2V*: surgery;Bone spur of right foot Chest 2 views CLINICAL HISTORY: Preop bone spur right foot. COMPARISON: None FINDINGS: Heart is normal size. Lungs are clear. No free air. XR/XR chest 2V* IMPRESSION: NO ACUTE CARDIOPULMONARY ABNORMALITY. Impression dictated by: Doug Hogan Jr., D.O.07/11/2022 3:11 PM Dictation Location: [place] [address] Transcribed By: [facility] 07/11/221510 Dictated By: Doug Hogan Jr, DO 07/11/221510 Signed By: 07/11/22 151 [facility] CBC AUTO DIFFon 06-08-2022 BASO # 0.0 103/ul Normal 0.0-0.1 [facility] Comment on above: Performed By: #### C BC ####[facility] [address] [place] [address]Dr. Armando Camargo Basophils/100 WBC (Bld) 0.6 % Normal 0.2-2.0 [facility] Comment on above: Performed By: #### C BC ####[facility] [address] [place] [address]Dr. Armando Camargo EO # 0.1 103/ul Normal 0.0-0.7 [facility] Comment on above: Performed By: #### C BC ####[facility] [address] [place] [address]Dr. Armando Camargo Eosinophils/100 WBC (Bld) 3.4 % Normal 0.9-7.0 [facility] Comment on above: Performed By: #### C BC ####[facility] [address] [place] [address]Dr. Armando Camargo Erythrocyte distribution width (RBC) [Ratio] 13.7 % Normal 11.0-15.0 [facility] Comment on above: Performed By: #### C BC ####[facility] [address] [place] [address]Dr. Armando Camargo Hematocrit (Bld) [Volume fraction] 40.5 % Normal 36.0-48.0 [facility] Comment on above: Performed By: #### C BC ####[facility] [address] [place], [place] [address]Dr. Armando Camargo Hemoglobin (Bld) [Mass/Vol] 13.3 g/dL Normal 12.0-16.0 [facility] Comment on above: Performed By: #### C BC ####[facility] [address] [place] [address]Dr. Armando Camargo IG # 0.00 10e3/ul Normal 0.00-0.03 [facility] Comment on above: Performed By: #### C BC ####[facility] [address] [place] [id number]. Armando Camargo IG % 0.0 % Normal 0.0-0.5 [facility] Comment on above: Performed By: #### C BC ####[facility] [address] [place] [address]Dr. Armando Camargo LYMPH # 1.5 103/ul Normal 1.2-3.8 [facility] Comment on above: Performed By: #### C BC ####[facility] [address] [place] [address]Dr. Armando Camargo Lymphocytes/100 WBC (Bld) 44.8 % Normal 20.5-60.0 [facility] Comment on above: Performed By: #### C BC ####[facility] [address] [place] [address]DrHernan Camargo MANUAL DIFF REQ NO Normal [facility] Comment on above: Performed By: #### C BC ####[facility] [address] [place] [phone]. Armando Camargo MCH (RBC) [Entitic mass] 31.1 pg Normal 26.7-34.0 [facility] Comment on above: Performed By: #### C BC ####[facility] [address] [place] [phone]. Armando Camargo MCHC (RBC) [Mass/Vol] 32.8 g/dL Normal 29.9-35.2 [facility] Comment on above: Performed By: #### C BC ####[facility] [address] [place] [phone]. Armando Camargo MCV (RBC) [Entitic vol] 94.8 fL Normal 81.0-99.0 [facility] Comment on above: Performed By: #### C BC ####[facility] [address] [place] [phone]. Armando Camargo MONO # 0.3 103/ul Normal 0.3-0.8 [facility] Comment on above: Performed By: #### C BC ####[facility] [address] [place] [phone]. Armando Camargo Monocytes/100 WBC (Bld) 10.1 % Normal 1.7-12.0 [facility] Comment on above: Performed By: #### C BC ####[facility] [address] [place] [phone]. Armando Camargo NEUT # 1.3 103/ul Critically low 1.4-6.5 [facility] Comment on above: Performed By: #### C BC ####[facility] [address] [place], [place] [address]Dr. Armando Camargo Neutrophils/100 WBC (Bld) 41.1 % Critically low 43.0-75.0 [facility] Comment on above: Performed By: #### C BC ####[facility] [address] [place], [place] [address]Dr. Armando Camargo Platelet mean volume (Bld) [Entitic vol] 8.5 fL Critically low 9.5-13.5 [facility] Comment on above: Performed By: #### C BC ####[facility] [address]uf[address] [place] [address]Dr. Armando Camargo PLT 235 103/ul Normal 150-450 [facility] Comment on above: Performed By: #### C BC ####[facility] [address] [place], [place] [address]Dr. Armando Camargo RBC 4.27 106/ul Normal 4.20-5.40 [facility] Comment on above: Performed By: #### C BC ####[facility] [address] [place] [phone]. Armando Camargo WBC 3.3 103/ul Critically low 4.0-11.0 [facility] Comment on above: Performed By: #### C BC ####[facility] [address] [place] [phone]. Armando Camargo CT ABD/PELVIS WO CONon 06-08 CT ABD/PELVIS WO CON EXAMINATION: CT ABD/PELVIS WO CON, 06/08/2022 3:53 PM EDT HISTORY: CALCULUS OF KIDNEY COMPARISON: CT abdomen and pelvis 06/22/2021. TECHNIQUE: CT scan of the abdomen and pelvis was performed without IV contrast. CT dose reduction technique was used, including Automated Exposure Control. FINDINGS: LOWER CHEST: There is mild bibasilar atelectasis. LIVER: Normal in size and attenuation. No focal lesions. GALLBLADDER AND BILIARY SYSTEM: The patient is status post cholecystectomy. There is associated mild biliary ductal dilatation which is stable. SPLEEN: Normal. PANCREAS: Normal. ADRENAL GLANDS: Normal. KIDNEYS AND URETERS: Normal, with no urolithiasis or obstructive uropathy. Previously noted renal stones are no longer visualized. VASCULATURE: Minimal atherosclerotic calcification of the abdominal aorta. RETROPERITONEUM AND LYMPH NODES: Normal, with no lymphadenopathy. GASTROINTESTINAL TRACT/MESENTERY: There is a large amount of stool in the colon. Bowel mesentery otherwise appears normal. The patient is status post appendectomy. BLADDER: Normal. REPRODUCTIVE SYSTEM: Status-post hysterectomy. BODY WALL: There is a stable tiny fat-containing umbilical hernia. BONES: Moderate degenerative disc space narrowing at L5-S1. There is no acute osseous abnormality. IMPRESSION: 1. No urolithiasis or obstructive uropathy. 2. No other acute process by noncontrast CT. 3. Moderate degenerative changes at L5-S1. Electronically authenticated by: ADONIS MIMS Date: 2022-06-08 17:02 Normal [facility] ER URINE PROFILEon 2 Bilirubin Ql (U) Negative Normal NEGATIVE [facility] Comment on above: Performed By: #### E RUR ####[facility] [address] [place] [address]DrHrenan Camargo Clarity (U) CLEAR Normal CLEAR [facility] Comment on above: Performed By: #### E RUR ####[facility] [address] [place] [phone] Camargo Color (U) LT. YELLOW Normal YELLOW [facility] Comment on above: Performed By: #### E RUR ####[facility] [address] [place] [address]Dr. Armando AGUIRRE A micrscopic examina tion will be performed if indicated. Normal [facility] Comment on above: Performed By: #### E RUR ####[facility] [address] [place] [address]Dr. Armando Camargo Glucose Ql (U) Negative Normal NEGATIVE [facility] Comment on above: Performed By: #### E RUR ####[facility] [address] [place], [place] [address]Dr. Armando Camargo Hemoglobin Ql (U) Negative Normal NEGATIVE [facility] Comment on above: Performed By: #### E RUR ####[facility] [address] [place], [place] [address]Dr. Armando Camargo Ketones Ql (U) Negative Normal NEGATIVE [facility] Comment on above: Performed By: #### E RUR ####[facility] [address] [place], [place] [address]Dr. Armando Camargo LEUKOCYTES Negative Normal NEGATIVE [facility] Comment on above: Performed By: #### E RUR ####[facility] [address] [place], [place] [address]Dr. Armando Camargo Nitrite Ql (U) Negative Normal NEGATIVE [facility] Comment on above: Performed By: #### E RUR ####[facility] [address] [place], [place] [address]Dr. Armando Camargo pH (U) 7.0 [pH] Normal 5-9 [facility] Comment on above: Performed By: #### E RUR ####[facility] [address] [place], [place] [address]Dr. Armando Camargo SPEC GRAVITY 1.010 Normal 1.005-<=1.0 25 [facility] Comment on above: Performed By: #### E RUR ####[facility] [address] [place], [place] [address]Dr. Armando Camargo UA PROTEIN Negative Normal NEGATIVE/ TRACE [facility] Comment on above: Performed By: #### E RUR ####[facility] [address] [place] [address]Dr. Armando Camargo UR MICRO IND NOT INDICATED Normal [facility] Comment on above: Performed By: #### E RUR ####[facility] [address] [place] [phone] Camargo Urobilinogen Qn (U) 0.2 {Josie'U}/dL Normal 0.2 - 1. 0 [facility] Comment on above: Performed By: #### E RUR ####[facility] [address] [place] [address]Dr. Armando Camargo LIPASEon 06-08-2022 Lipase [Catalytic activity/Vol] 136.0 U/L Normal 73.0-393.0 [facility] Comment on above: Performed By: #### L IPA, CMP #### [facility] [address] [place] [address] Dr. Armando Camargo PROF 14(COMP METB)on 022 Albumin [Mass/Vol] 4.2 g/dL Normal 3.4-5.0 [facility] Comment on above: Performed By: #### L IPA, CMP #### [facility] [address] [place] [address] Dr. Armando Camargo Albumin/Globulin [Mass ratio] 1.2 {ratio} Normal [facility] Comment on above: Performed By: #### L IPA, CMP #### [facility] [address] [place] [address] Dr. Armando Camargo ALP [Catalytic activity/Vol] 79 U/L Normal 46-116 [facility] Comment on above: Performed By: #### L IPA, CMP #### [facility] [address] [place] [address] Dr. Armando Camargo ALT [Catalytic activity/Vol] 42 U/L Normal 14-59 [facility] Comment on above: Performed By: #### L IPA, CMP #### [facility] [address] [place] [address] Dr. Armando Camargo Anion gap [Moles/Vol] 11.8 mmol/L Normal [facility] Comment on above: Performed By: #### L IPA, CMP #### [facility] [address] [place] [address] Dr. Armando Camargo AST [Catalytic activity/Vol] 33 U/L Normal 15-37 [facility] Comment on above: Performed By: #### L IPA, CMP #### [facility] [address] [place] [address] Dr. Armando Camargo Bilirubin [Mass/Vol] 0.3 mg/dL Normal 0.2-1.0 [facility] Comment on above: Performed By: #### L IPA, CMP #### [facility] [address] [place] [address] Dr. Armando Camargo Calcium [Mass/Vol] 9.5 mg/dL Normal 8.5-10.1 [facility] Comment on above: Performed By: #### L IPA, CMP #### [facility] [address] [place] [address] Dr. Armando Camargo Chloride [Moles/Vol] 103 mmol/L Normal 98-107 [facility] Comment on above: Performed By: #### L IPA, CMP #### [facility] [address] [place] [address] Dr. Armando Camargo CO2 [Moles/Vol] 31.6 mmol/L Normal 21.0-32.0 [facility] Comment on above: Performed By: #### L IPA, CMP #### [facility] [address] [place] [address] Dr. Armando Camargo Creatinine [Mass/Vol] 0.72 mg/dL Normal 0.55-1.02 [facility] Comment on above: Performed By: #### L IPA, CMP #### [facility] [address] [place] [address] Dr. Armando Camargo EGFR-AF ISRAELI >60 Normal >=60 [facility] Comment on above: Performed By: #### L IPA, CMP #### [facility] [address] [place] [address] Dr. Armando Camargo EGFR-NON AF ISRAELI >60 Normal >=60 [facility] Comment on above: Performed By: #### L IPA, CMP #### [facility] [address] [place] [address] Dr. Armando Camargo Globulin (S) [Mass/Vol] 3.5 g/dL Normal [facility] Comment on above: Performed By: #### L IPA, CMP #### [facility] [address] [place] [address] Dr. Armando Camargo Glucose [Mass/Vol] 91 mg/dL Normal 74-106 [facility] Comment on above: Performed By: #### L IPA, CMP #### [facility] [address] [place] [address] Dr. Armando Camargo Potassium [Moles/Vol] 4.4 mmol/L Normal 3.5-5.1 [facility] Comment on above: Performed By: #### L IPA, CMP #### [facility] [address] [place] [address] Dr. Armando Camargo Protein [Mass/Vol] 7.7 g/dL Normal 6.4-8.[address] [facility] Comment on above: Performed By: #### L IPA, CMP #### [facility] [address] [place] [address] Dr. Armando Camargo Sodium [Moles/Vol] 142 mmol/L Normal 136-145 [facility] Comment on above: Performed By: #### L IPA, CMP #### [facility] [address] [place] [address] Dr. Armando Camargo Urea nitrogen [Mass/Vol] 18.0 mg/dL Normal 7.0-18.0 [facility] Comment on above: Performed By: #### L IPA, CMP #### [facility] [address] [place] [address] Dr. Armando Camargo Urea nitrogen/Creatinine [Mass ratio] 25.0 mg/mg Normal [facility] Comment on above: Performed By: #### L IPA, CMP #### [facility] [address] [place] [address] Dr. Armando Camargo CBC AUTO DIFFon 05-03-2022 BASO # 0.0 103/ul Normal 0.0-0.1 [facility] Comment on above: Performed By: #### C BC #### [facility] [address] [place] [address] Dr. Armando Camargo Basophils/100 WBC (Bld) 1.1 % Normal 0.2-2.0 [facility] Comment on above: Performed By: #### C BC #### [facility] [address] [place] [address] Dr. Armando Camargo EO # 0.1 103/ul Normal 0.0-0.7 [facility] Comment on above: Performed By: #### C BC #### [facility] [address] [place] [address] Dr. Armando Camargo Eosinophils/100 WBC (Bld) 2.2 % Normal 0.9-7.0 [facility] Comment on above: Performed By: #### C BC #### [facility] [address] [place] [address] Dr. Armando Camargo Erythrocyte distribution width (RBC) [Ratio] 13.6 % Normal 11.0-15.0 [facility] Comment on above: Performed By: #### C BC #### [facility] [address] [place] [address] Dr. Armando Camargo Hematocrit (Bld) [Volume fraction] 37.9 % Normal 36.0-48.0 [facility] Comment on above: Performed By: #### C BC #### [facility] [address] [place] [address] Dr. Armando Camargo Hemoglobin (Bld) [Mass/Vol] 12.3 g/dL Normal 12.0-16.0 [facility] Comment on above: Performed By: #### C BC #### [facility] [address] [place] [address] Dr. Armando Camargo IG # 0.01 10e3/ul Normal 0.00-0.03 [facility] Comment on above: Performed By: #### C BC #### [facility] [address] [place] [address] Dr. Armando Camargo IG % 0.3 % Normal 0.0-0.5 [facility] Comment on above: Performed By: #### C BC #### [facility] [address] [place] [address] Dr. Armando Camargo LYMPH # 1.2 103/ul Normal 1.2-3.8 [facility] Comment on above: Performed By: #### C BC #### [facility] [address] [place] [address] Dr. Armando Camargo Lymphocytes/100 WBC (Bld) 33.7 % Normal 20.5-60.0 [facility] Comment on above: Performed By: #### C BC #### [facility] [address] [place] [address] Dr. Armando Camargo MANUAL DIFF REQ NO Normal [facility] Comment on above: Performed By: #### C BC #### [facility] [address] [place] [address] Dr. Armando Camargo MCH (RBC) [Entitic mass] 31.5 pg Normal 26.7-34.0 [facility] Comment on above: Performed By: #### C BC #### [facility] [address] [place] [address] Dr. Armando Camargo MCHC (RBC) [Mass/Vol] 32.5 g/dL Normal 29.9-35.2 [facility] Comment on above: Performed By: #### C BC #### [facility] [address] [place] [address] Dr. Armando Camargo MCV (RBC) [Entitic vol] 97.2 fL Normal 81.0-99.0 [facility] Comment on above: Performed By: #### C BC #### [facility] [address] [place] [address] Dr. Armando Camargo MONO # 0.3 103/ul Normal 0.3-0.8 [facility] Comment on above: Performed By: #### C BC #### [facility] [address] [place] [address] Dr. Armando Camargo Monocytes/100 WBC (Bld) 9.0 % Normal 1.7-12.0 [facility] Comment on above: Performed By: #### C BC #### [facility] [address] [address] [address] Armando Camargo NEUT # 2.0 103/ul Normal 1.4-6.5 [facility] Comment on above: Performed By: #### C BC #### [facility] [address] [address] [address] Armando Camargo Neutrophils/100 WBC (Bld) 53.7 % Normal 43.0-75.0 [facility] Comment on above: Performed By: #### C BC #### [facility] [address] [address] [address] Armando Camargo Platelet mean volume (Bld) [Entitic vol] 8.9 fL Critically low 9.5-13.5 [facility] Comment on above: Performed By: #### C BC #### [facility] [address] [place] [address] Dr. Armando Camargo PLT 206 103/ul Normal 150-450 [facility] Comment on above: Performed By: #### C BC #### [facility] [address] [address] [address] Armando Camargo RBC 3.90 106/ul Critically low 4.20-5.40 [facility] Comment on above: Performed By: #### C BC #### [facility] [address] [place] [address] Dr. Armando Camargo WBC 3.7 103/ul Critically low 4.0-11.0 [facility] Comment on above: Performed By: #### C BC #### [facility] [address] [address] [address] Armando Camargo CRPon 05-03-2022 CRP [Mass/Vol] mg/L Normal <=1.0 [facility] Comment on above: Performed By: #### C RP, TSH, BMP #### [facility] [address] [address] [address] Armando Camargo PROF CHEM 8 (BAS METB)on Anion gap [Moles/Vol] 8.0 mmol/L Normal [facility] Comment on above: Performed By: #### C RP, TSH, BMP #### [facility] [address] [place] [address] Dr. Armando Camargo Calcium [Mass/Vol] 9.2 mg/dL Normal 8.5-10.1 [facility] Comment on above: Performed By: #### C RP, TSH, BMP #### [facility] [address] [place] [address] Dr. Armando Camargo Chloride [Moles/Vol] 105 mmol/L Normal 98-107 [facility] Comment on above: Performed By: #### C RP, TSH, BMP #### [facility] [address] [place] [address] Dr. Armando Camargo CO2 [Moles/Vol] 34.6 mmol/L Critically high 21.0-32.0 [facility] Comment on above: Performed By: #### C RP, TSH, BMP #### [facility] [address] [place] [address] Dr. Armando Camargo Creatinine [Mass/Vol] 0.68 mg/dL Normal 0.55-1.02 [facility] Comment on above: Performed By: #### C RP, TSH, BMP #### [facility] [address] [place] [address] Dr. Armando Camargo EGFR-AF ISRAELI >60 Normal >=60 [facility] Comment on above: Performed By: #### C RP, TSH, BMP #### [facility] [address] [place] [address] Dr. Armando Camargo EGFR-NON AF ISRAELI >60 Normal >=60 [facility] Comment on above: Performed By: #### C RP, TSH, BMP #### [facility] [address] [place] [address] Dr. Armando Camargo Glucose [Mass/Vol] 95 mg/dL Normal 74-[address] [facility] Comment on above: Performed By: #### C RP, TSH, BMP #### [facility] [address] [place] [address] Dr. Armando Camargo Potassium [Moles/Vol] 4.6 mmol/L Normal 3.5-5.1 [facility] Comment on above: Performed By: #### C RP, TSH, BMP #### [facility] [address] [address] [address] Armando Camargo Sodium [Moles/Vol] 143 mmol/L Normal 136-145 [facility] Comment on above: Performed By: #### C RP, TSH, BMP #### [facility] [address] [address] [address] Armando Camargo Urea nitrogen [Mass/Vol] 20.0 mg/dL Critically high 7.0-18.0 [facility] Comment on above: Performed By: #### C RP, TSH, BMP #### [facility] [address] [place] [address] Dr. Armando Camargo Urea nitrogen/Creatinine [Mass ratio] 29.4 mg/mg Normal [facility] Comment on above: Performed By: #### C RP, TSH, BMP #### [facility] [address] [place] [address] Dr. Armando Camargo TSHon 05-03-2022 TSH 1.870 uIU/mL Normal 0.358-3.740 [facility] Comment on above: Performed By: #### C RP, TSH, BMP #### [facility] [address] [place] [address] Dr. Armando Camargo TSH RANGE SEE BELOW Normal [facility] Comment on above: Result Comment: <0.3 4 UIU/ml HYPERTHYROID 0.34-5.60 UIU/ml EUTHYROID >5.60 UIU/ml HYPOTHYROID Performed By: #### C RP, TSH, BMP #### [facility] [address] [place] [address] Dr. Armando Camargo CBC AUTO DIFFon 06-29-2021 BASO # 0.0 103/ul Normal 0.0-0.1 [facility] Comment on above: Performed By: #### C BC ####[facility] [address], [place] [address]Qowrbo [place] Basophils/100 WBC (Bld) 0.5 % Normal 0.2-2.0 [facility] Comment on above: Performed By: #### C BC ####[facility] [address] [place] [address] [place] EO # 0.1 103/ul Normal 0.0-0.7 [facility] Comment on above: Performed By: #### C BC ####[facility] [address] [place], [place] [address]ken G[place] Eosinophils/100 WBC (Bld) 1.8 % Normal 0.9-7.0 [facility] Comment on above: Performed By: #### C BC ####[facility] [address] [place] [address] [place] Erythrocyte distribution width (RBC) [Ratio] 13.5 % Normal 11.0-15.0 [facility] Comment on above: Performed By: #### C BC ####[facility] [address] [place] [address] [place] Hematocrit (Bld) [Volume fraction] 40.4 % Normal 36.0-48.0 [facility] Comment on above: Performed By: #### C BC ####[facility] [address] [place], [place] [id number] Gisselle Hemoglobin (Bld) [Mass/Vol] 13.0 g/dL Normal 12.0-16.0 [facility] Comment on above: Performed By: #### C BC ####[facility] [address] [place] [address] [place] IG # 0.01 10e3/ul Normal 0.00-0.03 [facility] Comment on above: Performed By: #### C BC ####[facility] [address] [place], [place] [address]Gerken Gisselle IG % 0.3 % Normal 0.0-0.5 [facility] Comment on above: Performed By: #### C BC ####[facility] [address] [place] [address] [place] LYMPH # 1.4 103/ul Normal 1.2-3.8 [facility] Comment on above: Performed By: #### C BC ####[facility] A[address] [place] Lymphocytes/100 WBC (Bld) 35.9 % Normal 20.5-60.0 [facility] Comment on above: Performed By: #### C BC ####[facility] [address] [place] MANUAL DIFF REQ NO Normal [facility] Comment on above: Performed By: #### C BC ####[facility] Gos[address]cg[address] [place] MCH (RBC) [Entitic mass] 31.0 pg Normal 26.7-34.0 [facility] Comment on above: Performed By: #### C BC ####[facility] [address] [place] [address] [place] MCHC (RBC) [Mass/Vol] 32.2 g/dL Normal 29.9-35.2 [facility] Comment on above: Performed By: #### C BC ####[facility] [address] [place] [address] [place] MCV (RBC) [Entitic vol] 96.2 fL Normal 81.0-99.0 [facility] Comment on above: Performed By: #### C BC ####[facility] [address] [place] MONO # 0.4 103/ul Normal 0.3-0.8 [facility] Comment on above: Performed By: #### C BC ####[facility] [address]ftxbkvsfa8704 [address] [place] Monocytes/100 WBC (Bld) 10.3 % Normal 1.7-12.0 [facility] Comment on above: Performed By: #### C BC ####[facility] [address] [place] [address] [place] NEUT # 1.9 103/ul Normal 1.4-6.5 [facility] Comment on above: Performed By: #### C BC ####[facility] [address]xjo[address]15 [address] [place] Neutrophils/100 WBC (Bld) 51.2 % Normal 43.0-75.0 [facility] Comment on above: Performed By: #### C BC ####[facility] [address] [place] Platelet mean volume (Bld) [Entitic vol] 9.0 fL Critically low 9.5-13.5 [facility] Comment on above: Performed By: #### C BC ####[facility] [address] [place] PLT 216 103/ul Normal 150-450 [facility] Comment on above: Performed By: #### C BC ####[facility] [address] [place] [address] [place] RBC 4.20 106/ul Normal 4.20-5.40 [facility] Comment on above: Performed By: #### C BC ####[facility] [address] [id number] [place] WBC 3.8 103/ul Critically low 4.0-11.0 [facility] Comment on above: Performed By: #### C BC ####[facility] [address] [address]Ger[place] CULTURE URINEon 06-29-2021 CULTURE URINE Culture Observations : NO GROWTH. Normal [facility] Comment on above: Performed By: #### U RCX ####[facility] Cl[address]ft[address] [place] PROF 14(COMP METB)on 021 Albumin [Mass/Vol] 3.8 g/dL Normal 3.5-5.0 [facility] Comment on above: Performed By: #### T SH, CMP ####[facility] K[address]sk[address] [place] Albumin/Globulin [Mass ratio] 1.0 {ratio} Normal [facility] Comment on above: Performed By: #### T KYLE, CMP ####[facility] Ze[address]54[address] [place], [place] [address]Fczosr [place] ALP [Catalytic activity/Vol] 74 U/L Normal 38-126 [facility] Comment on above: Performed By: #### T KYLE, CMP ####[facility] [address]fe[address]5697 [place], [place] [address]Mgkuij [place] ALT [Catalytic activity/Vol] 31 U/L Normal 9-52 [facility] Comment on above: Performed By: #### T KYLE, CMP ####[facility] T[address]2212 [place], [place] [address]Htckpp [place] Anion gap [Moles/Vol] 9.1 mmol/L Normal [facility] Comment on above: Performed By: #### T KYLE, CMP ####[facility] T[address]q1449 [place], [place] [address]Asestt [place] AST [Catalytic activity/Vol] 25 U/L Normal 14-36 [facility] Comment on above: Performed By: #### T KYLE, CMP ####[facility] [address]ohmerrl5362 [place], [place] [address]Wdxgfo [place] Bilirubin [Mass/Vol] 0.2 mg/dL Normal 0.2-1.3 [facility] Comment on above: Performed By: #### T KYLE, CMP ####[facility] Xx[address]ffoqzle2921 [place], [place] [address]Sidvpc [place] Calcium [Mass/Vol] 9.0 mg/dL Normal 8.4-10.2 [facility] Comment on above: Performed By: #### T KYLE, CMP ####[facility] V[address]ks[address]wl[address]0471 [place], [place] [address]Ivrblc [place] Chloride [Moles/Vol] 105 mmol/L Normal 98-107 [facility] Comment on above: Performed By: #### T KYLE, CMP ####[facility] Q[address]iyobdh3541 [place], [place] [address]Xjmnef [place] CO2 [Moles/Vol] 32.2 mmol/L Critically high 22.0-30.0 [facility] Comment on above: Performed By: #### T SH, CMP ####[facility] Icygcecyma6406 [place], [place] [address]Smqphz [place] Creatinine [Mass/Vol] 0.68 mg/dL Normal 0.52-1.04 [facility] Comment on above: Performed By: #### T SH, CMP ####[facility] W[address]85 [place], [place] [address]Vpkonn [place] EGFR-AF ISRAELI >60 Normal >=60 [facility] Comment on above: Performed By: #### T SH, CMP ####[facility] [address]10 [place], [place] [address]Zfggbj [place] EGFR-NON AF ISRAELI >60 Normal >=60 [facility] Comment on above: Performed By: #### T KYLE, CMP ####[facility] [address] [place], [place] [address]Gerken Gisselle Globulin (S) [Mass/Vol] 3.7 g/dL Normal [facility] Comment on above: Performed By: #### T SH, CMP ####[facility] [address] [place] [address]Rhilxv [place] Glucose [Mass/Vol] 87 mg/dL Normal 74-106 [facility] Comment on above: Performed By: #### T SH, CMP ####[facility] [address] [place], [place] [phone] Gisselle Potassium [Moles/Vol] 4.3 mmol/L Normal 3.4-5.0 [facility] Comment on above: Performed By: #### T SH, CMP ####[facility] [address] [place] [address]Psjolk [place] Protein [Mass/Vol] 7.5 g/dL Normal 6.1-8.[address] [facility] Comment on above: Performed By: #### T SH, CMP ####[facility] [address] [place], [place] [phone] [place] Sodium [Moles/Vol] 142 mmol/L Normal 137-[address] [facility] Comment on above: Performed By: #### T KYLE, CMP ####[facility] [address] [address]Serafin [place] Urea nitrogen [Mass/Vol] 14.0 mg/dL Normal 7.0-17.0 [facility] Comment on above: Performed By: #### T SH, CMP ####[facility] [address] [address] Urea nitrogen/Creatinine [Mass ratio] 20.6 mg/mg Normal [facility] Comment on above: Performed By: #### T KYLE, CMP ####[facility] [address] [address]Serafin Perkinsen TSHon 06-29-2021 TSH 2.331 uIU/mL Normal 0.470-4.680 [facility] Comment on above: Performed By: #### T KYLE, CMP ####[facility] [address] [address]Gerken [place] TSH RANGE SEE BELOW Normal [facility] Comment on above: Result Comment: <0.3 4 UIU/ml HYPERTHYROID 0.34-5.60 UIU/ml EUTHYROID >5.60 UIU/ml HYPOTHYROID Performed By: #### T KYLE, CMP ####[facility] [address] [place], [place] [address] [place] UA RANDOM W/MICROSCOPICon BACTERIA TRACE Abnormal NONE SEEN [facility] Comment on above: Performed By: #### U AMIC #### [facility] [address] [address] Serafin Gisselle Bilirubin Ql (U) Negative Normal NEGATIVE [facility] Comment on above: Performed By: #### U AMIC #### [facility] [address] [place] [address] Serafin Gisselle CAST NONE SEEN Normal NONE SEEN [facility] Comment on above: Performed By: #### U AMIC #### [facility] [address] [address] Serafin Gisselle Clarity (U) CLEAR Normal CLEAR [facility] Comment on above: Performed By: #### U AMIC #### [facility] [address] [address] Serafin Gisselle Color (U) LT. YELLOW Normal YELLOW [facility] Comment on above: Performed By: #### U AMIC #### [facility] [address] [phone] Serafin Gisselle Crystals LM Nom (Urine sed) NONE SEEN Normal NONE SEEN [facility] Comment on above: Performed By: #### U AMIC #### [facility] [address] [address] Serafin Gisselle Epithelial cells LM Ql (Urine sed) MODERATE Abnormal NONE SEEN /RARE [facility] Comment on above: Performed By: #### U AMIC #### [facility] [address] [place] [address] Serafin Gisselle Glucose Ql (U) Negative Normal NEGATIVE [facility] Comment on above: Performed By: #### U AMIC #### [facility] [address] [address] Serafin Gisselle Hemoglobin Ql (U) Negative Normal NEGATIVE The [facility] Comment on above: Performed By: #### U AMIC #### [facility] [address] [place] [address] Serafin Gisselle Ketones Ql (U) Negative Normal NEGATIVE The [facility] Comment on above: Performed By: #### U AMIC #### [facility] [address] [place] [address] Serafin Gisselle LEUKOCYTES Negative Normal NEGATIVE [facility] Comment on above: Performed By: #### U AMIC #### [facility] [address] [address] Serafin Gisselle MUCOUS NONE SEEN Normal NONE SEEN [facility] Comment on above: Performed By: #### U AMIC #### [facility] [address] [place] [address] Serafin Gisselle Nitrite Ql (U) Negative Normal NEGATIVE The [facility] Comment on above: Performed By: #### U AMIC #### [facility] [address] [place] [address] Serafin Gisselle pH (U) 6.5 [pH] Normal 5-9 [facility] Comment on above: Performed By: #### U AMIC #### [facility] [address] [place] [id number] Serafin Pitts RBC 0-2 Normal 0-2 [facility] Comment on above: Performed By: #### U AMIC #### [facility] [address], [place] [address] Serafin Pitts SPEC GRAVITY 1.010 Normal 1.005-<=1.0 25 [facility] Comment on above: Performed By: #### U AMIC #### [facility] [address] [place] [address] Serafin Pitts UA PROTEIN Negative Normal NEGATIVE/ TRACE [facility] Comment on above: Performed By: #### U AMIC #### [facility] [address] [place] [address] Serafin Pitts Urobilinogen Qn (U) 0.2 {Josie'U}/dL Normal 0.2 - 1. 0 [facility] Comment on above: Performed By: #### U AMIC #### [facility] [address] [place] [address] Serafin Pitts WBC 0-2 Abnormal NONE SEEN [facility] Comment on above: Performed By: #### U AMIC #### [facility] [address] [place] [address] ABD/PELVIS WO CONon 06-22 CT ABD/PELVIS WO CON EXAMINATION: CT ABD/PELVIS WO CON HISTORY: Left lower quadrant pain ; left lower back pain radiating anteriorly, bladder pressure, frequent urination COMPARISON: No relevant comparison available. TECHNIQUE: Axial, Coronal, and Sagittal images were created without IV contrast. Dose reduction techniques were achieved by using automated exposure control and/or adjustment of mA and/or kV according to patient size and/or use of iterative reconstruction technique. FINDINGS: LUNG BASES: No visible pulmonary or pleural disease. LIVER: No enlargement, atrophy, abnormal density, or significant focal lesion. BILIARY: Cholecystectomy. PANCREAS: No lesion, fluid collection, ductal dilatation, or atrophy. SPLEEN: No enlargement or focal lesion. ADRENALS: No mass or enlargement. KIDNEYS: Nonobstructing 3 mm stone in right kidney and 1 mm stone within left kidney. No ureteral stones or abnormal dilation. BOWEL/MESENTERY: No visible mass, obstruction, or bowel wall thickening. AORTA/VASCULAR: No aneurysm or dissection. RETROPERITONEUM: No mass or adenopathy. LYMPH NODES: No adenopathy. URINARY BLADDER: No visible focal wall thickening, lesion, or calculus. PELVIC ORGANS: No visible mass. Pelvic organs appropriate for patient age. ABDOMINAL WALL: No mass or hernia. BONES: Complete loss of the L5-S1 disc space. No bony lesion or fracture. OTHER: Negative. IMPRESSION: 1. Bilateral nonobstructing nephrolithiasis. 2. No acute findings to account for the patient's symptoms. 3. Unremarkable bowel. 4. L5-S1 marked degenerative disc disease. Electronically authenticated by: ADONIS VILLATORO Date: 2021-06-22 11:32 Normal [facility] MRI KNEE RT WO CONon 021 MRI KNEE RT WO CON EXAMINATION: MRI KNE E RT WO CON HISTORY: Imaging of musculoskeletal system abnormal ; chronic right medial knee pain COMPARISON: No relevant comparison available. TECHNIQUE: A complete multi-planar MRI was performed. FINDINGS: MEDIAL COMPARTMENT MEDIAL MENISCUS: No visible tear or significant degeneration. CARTILAGE: No visible defect. BONES: No marrow pathology, fracture, or significant arthropathy. MCL AND MEDIAL CAPSULE: Mild strain. LATERAL COMPARTMENT LATERAL MENISCUS: Suspect small superior surface tear at the posterior junction. CARTILAGE: No visible defect. BONES: No marrow pathology, fracture, or significant arthropathy. LCL/POSTEROLAT COMPLEX: Normal lateral collateral ligament, fascicles, lateral capsule and ligaments. ANTERIOR COMPARTMENT PATELLA: No marrow pathology, fracture, or significant arthropathy. CARTILAGE: Mild-moderate thinning without focal defect. TENDONS: Normal. EFFUSION: None. No synovitis or loose bodies. ACL: Normal appearing ligament. PCL: Normal appearing ligament. MENISCOFEMORAL: Normal meniscofemoral ligaments. OTHER: Mild edema within the subcutaneous fat anterior to the patellar tendon. IMPRESSION: 1. Suspect small superior surface tear involving the posterior junction of the lateral meniscus. 2. Mild strain of the medial collateral ligament. 3. Cartilage thinning of the patella without focal defect. 4. Mild edema of the subcutaneous fat anterior to the patella and patellar tendon without convincing bursitis. Electronically authenticated by: ADONIS VILLATORO Date: 2021-06-22 12:59 Normal [facility] CULTURE URINEon 06-15-2021 CULTURE URINE Culture Observations : LIGHT GROWTH OF MIXED GENITAL JESIKA. NO POTENTIAL PATHOGENS SEEN. Normal [facility] Comment on above: Performed By: #### U RCX ####[facility] [address] [id number] Gisselle UA RANDOM W/MICROSCOPICon BACTERIA NONE SEEN Normal NONE SEEN [facility] Comment on above: Performed By: #### U AMIC #### [facility] [address] [address] Serafin Gisselle Bilirubin Ql (U) Negative Normal NEGATIVE [facility] Comment on above: Performed By: #### U AMIC #### [facility] [address] [address] Serafin Gisselle CAST NONE SEEN Normal NONE SEEN [facility] Comment on above: Performed By: #### U AMIC #### [facility] [address] [address] Serafin Gisselle Clarity (U) CLEAR Normal CLEAR [facility] Comment on above: Performed By: #### U AMIC #### [facility] [address] [address] Serafin Gisselle Color (U) LT. YELLOW Normal YELLOW [facility] Comment on above: Performed By: #### U AMIC #### [facility] [address] [id number] Serafin Gisselle Crystals LM Nom (Urine sed) NONE SEEN Normal NONE SEEN [facility] Comment on above: Performed By: #### U AMIC #### [facility] [address] [phone] Serafin Gisselle Epithelial cells LM Ql (Urine sed) MODERATE Abnormal NONE SEEN /RARE [facility] Comment on above: Performed By: #### U AMIC #### [facility] [address] [address] Serafin Gisselle Glucose Ql (U) Negative Normal NEGATIVE [facility] Comment on above: Performed By: #### U AMIC #### [facility] [address] [address] Serafin Gisselle Hemoglobin Ql (U) Negative Normal NEGATIVE The [facility] Comment on above: Performed By: #### U AMIC #### [facility] [address] [address] Serafin Gisselle Ketones Ql (U) Negative Normal NEGATIVE [facility] Comment on above: Performed By: #### U AMIC #### [facility] [address] [place] [address] Serafin Gisselle LEUKOCYTES Negative Normal NEGATIVE [facility] Comment on above: Performed By: #### U AMIC #### [facility] [address] [place], [place] [id number] Serafin Gisselle MUCOUS NONE SEEN Normal NONE SEEN [facility] Comment on above: Performed By: #### U AMIC #### [facility] [address] [place] [address] Serafin Gisselle Nitrite Ql (U) Negative Normal NEGATIVE [facility] Comment on above: Performed By: #### U AMIC #### [facility] [address] [place] [address] Serafin Gisselle pH (U) 7.0 [pH] Normal 5-9 [facility] Comment on above: Performed By: #### U AMIC #### [facility] [address] [place] [address] Serafin Gisselle RBC NONE SEEN Abnormal 0-2 [facility] Comment on above: Performed By: #### U AMIC #### [facility] [address] [place] [address] Serafin Gisselle SPEC GRAVITY 1.015 Normal 1.005-<=1.0 25 [facility] Comment on above: Performed By: #### U AMIC #### [facility] [address] [place] [address] Serafin Gisselle UA PROTEIN Negative Normal NEGATIVE/ TRACE [facility] Comment on above: Performed By: #### U AMIC #### [facility] [address] [place] [address] Serafin Gisselle Urobilinogen Qn (U) 0.2 {Josie'U}/dL Normal 0.2 - 1. 0 [facility] Comment on above: Performed By: #### U AMIC #### [facility] [address], [place] [address] Serafin Pitts WBC NONE SEEN Normal NONE SEEN [facility] Comment on above: Performed By: #### U AMIC #### [facility] [address], [place] [address] Serafin Pitts PROGRESSon 03-22-2018 PROGRESS HNO ID: [id number] thor: Raven Addison: (none)Author Type: PhysicianType: Progress NotesFiled: 03/22/2018 9:22 AMNote Text:[facility] FOR FEMALE PELVIC MEDICINE AND RECONSTRUCTIVE SURGERY?PHYSICIAN INTERPRETATION:?Urodynami cs Interpretation:?A 7 Fr catheter was placed in a sterile fashion and a separate rectalcatheter was placed for intra-abdominal pressure measurements. The studywas then run to yield results as follows:?Uroflow:PVR:?CMG : The FS and FD: rangeBladder compliance: normalDetrusor overactivity: none, but may be suppressed by pt anxietyStress incontinence: noTotal tolerated volume was normal to decreased?Pressure Flow phase: Pdet max with flow was normalAbdominal strain: yes, but Pdet noted as well?EMG: DESD or abnormal patterns noted: No?Post-test uroflow- normal?Impression: Normal UDS with poor Pdet and low flow but no evidence ofobstruction Normal [facility] CNNURSE Nurse Visit (UROSMN) TEJINDER RUIZ ([id number]) 1965 FDate Time Provider Department03/20/18 3:00 PM URODYNAMICS UROSMN During your visit today, we recorded the following information about you:Brooke Salcido RN 03/20/2018 3:44 PM Signed[facility] KIDNEY INSTITUTEURODYNAMICS LABURODYNAMIC PROCEDURE NOTEID Verified by: Brooke Salcido RN with name and birthdate.Procedure instructions reviewed with patient prior to procedure: YesCurrently experiencing pain: No 0 on a scale of 0 to 10 on a scale of 0-10.Does the patient have any concerns about safety in the home/falls?: Not at riskfor fallsHas the patient had 2 falls in the last year or 1 fall with injury or currentlyusing assistive device (walker, cane, wheelchair, crutches): NoWhat interventions were put in place to prevent falls during this visit:Increased observations by caregiversHas patient had any history of Mitral Valve prolapse: No MEDS:NONEHas patient had any history of prosthetics: No MEDS: NONELatex allergy: No Iodine allergy: NoFemales- Is patient : NoB/O UA: YES Negative nitrites and leukocytes.UROFLOWMETRYVo ided vol: 116 ml.Flow time: 22 sec.Q max: 13 ml/sec.Q av ml/sec.PVR: 20 ml.CYSTOMETROGRAMSubtract ed:Yes Video: Yes EMG: YesFirst Sensation: never felt cool, filling or pressure.Strong desire: 246mlMax. capacity: 336 mlMaximum filling detrusor pressure 1 cm of waterDetrusor overactivity associated with urge: NoDetrusor overactivity associated with leakage: NoWas patient assessed for VLPP / UPP YesLeaks urine with valsalva /coughs: NoLowest Leak point pressure: n/a cm of water at n/a mlPRESSURE-FLOW VOIDING STUDYDid patient void with catheters in place YesVoided: 71 ml voluntary then urethral cath removed and pt voided 180ml total,up to bathroom voided 300ml in toilet hat.Max Voiding Detrusor Pressure 16cm [id number] to voidP det Q max (Max Flow): 9 cm [id number] Flow Rate: 12 ml/secAverage Flow Rate: 4 ml/secFluro time: see xray record minVaginal Packing for prolapse support: NoComments: Cysto to follow.Pt c/o urge towards capacity with no significant risein pdet.Pushing and straining to void, urethral cath removed to aid void. Up tobathroom voided more in toilet hat.Please use Urodynamic Graph.Pt given verbal home going instructions. Pt states an understanding ofinstructions given.Raven Cruz 03/22/2018 9:22 AM Signed[facility] INSTITUTEUNIVERS[facility]ENTERER FOR FEMALE PELVIC MEDICINE AND RECONSTRUCTIVE SURGERY?PHYSICIAN INTERPRETATION:?Urodynami cs Interpretation:?A 7 Fr catheter was placed in a sterile fashion and a separate rectal catheterwas placed for intra-abdominal pressure measurements. The study was then run [facility] results as follows:?Uroflow:PVR:?CMG : The FS and FD: rangeBladder compliance: normalDetrusor overactivity: none, but may be suppressed by pt anxietyStress incontinence: noTotal tolerated volume was normal to decreased?Pressure Flow phase: Pdet max with flow was normalAbdominal strain: yes, but Pdet noted as well?EMG: DESD or abnormal patterns noted: No?Post-test uroflow- normal?Impression: Normal UDS with poor Pdet and low flow but no evidence ofobstructionReferring Provider: RAVEN BAUMAN [[id number]]Allergies As of Date: 03/20/2018 Noted Allergy ReactionKEFLEX (CEPHALEXIN) 03/20/2018 4 - Hives Comments: Itching, shortness of breathSTEROIDS (CORTICOSTEROIDS (GLUCOC*03/20/2018 12 - Shortness of Breath Comments: Oral steroids...vomiting, severe heartburnSULFA (SULFONAMIDE ANTIBIOTICS) 03/20/2018 11 - Vomiting Comments: Shortness of breath, itchingTRAMADOL 03/20/2018 9 - ItchingDate Reviewed: 03/20/2018Reviewed by: Angela Soriano MA - Fully AssessedPrimary Visit Diagnosis:Dysfunctional voiding of urine [N39.8] Other Visit Diagnosis:Urinary urgency [R39.15]Prescriptions as of 03/20/2018 Sig: NITROFURANTOIN MONOHYDRATE AND * Take 100 mg by mouth twice da* TYLENOL EX STR ARTHRITIS PAIN* Take by mouth. ADVIL ORAL Take 600 mg by mouth. ALEVE ORAL Take by mouth. CHILDREN'S BENADRYL ALLERGY O* Take by mouth. BACLOFEN 10 MG TABLET Take 10 mg by mouth three bee* METHENAM 118 MG-M.BLUE 10 MG-* Take by mouth. BENAZEPRIL 5 MG TABLET Take 5 mg by mouth once daily. ESTRADIOL 0.5 MG TABLET Take 0.5 mg by mouth once darren* MULTIVITAMIN ORAL Take by mouth. ESTRADIOL 0.5 MG TABLET Take 0.5 mg by mouth. METHENAM 118 MG-M.BLUE 10 MG-* Take by mouth. BENAZEPRIL 5 MG TABLET Take 5 mg by mouth.Problem List As Of Date 03/20/2018 Noted Resolved Incomplete emptying of bladder [R33.9] INVALID FOR*Visit Notes:>> Brooke Salcido RN March 20, 2018 3:10 PM Status: Signed[facility] KID[facility] INSTITUTEURODYNAMICS LABURODYNAMIC PROCEDURE NOTEID Verified by: Brooke Salcido RN with name and birthdate.Procedure instructions reviewed with patient prior to procedure: YesCurrently experiencing pain: No 0 on a scale of 0 to 10 on a scale of0-10.Does the patient have any concerns about safety in the home/falls?: Not atrisk for fallsHas the patient had 2 falls in the last year or 1 fall with injury orcurrently using assistive device (walker, cane, wheelchair, crutches):NoWhat interventions were put in place to prevent falls during this visit:Increased observations by caregiversHas patient had any history of Mitral Valve prolapse: No MEDS:NONEHas patient had any history of prosthetics: No MEDS: NONELatex allergy: No Iodine allergy: NoFemales- Is patient : NoB/O UA: YES Negative nitrites and leukocytes.UROFLOWMETRYVo ided vol: 116 ml.Flow time: 22 sec.Q max: 13 ml/sec.Q av ml/sec.PVR: 20 ml.CYSTOMETROGRAMSubtract ed:Yes Video: Yes EMG: YesFirst Sensation: never felt cool, filling or pressure.Strong desire: 246mlMax. capacity: 336 mlMaximum filling detrusor pressure 1 cm of waterDetrusor overactivity associated with urge: NoDetrusor overactivity associated with leakage: Abdullahi patient assessed for VLPP / UPP YesLeaks urine with valsalva /coughs: NoLowest Leak point pressure: n/a cm of water at n/a mlPRESSURE-FLOW VOIDING STUDYDid patient void with catheters in place YesVoided: 71 ml voluntary then urethral cath removed and pt voided 180mltotal, up to bathroom voided 300ml in toilet hat.Max Voiding Detrusor Pressure 16cm [id number] to voidP det Q max (Max Flow): 9 cm [id number] Flow Rate: 12 ml/secAverage Flow Rate: 4 ml/secFluro time: see xray record minVaginal Packing for prolapse support: NoComments: Cysto to follow.Pt c/o urge towards capacity with no significantrise in pdet.Pushing and straining to void, urethral cath removed to aidvoid. Up to bathroom voided more in toilet hat.Please use Urodynamic Graph.Pt given verbal home going instructions. Pt states an understanding ofinstructions given.Brooke Salcido RNFollow-up and Disposition History RecordedEncounter Number: [id number] Status:Closed by BROOKE SALCIDO RN on 03/20/18 [facility] CNOVon 03-20-2018 CNOV Office Visit (UROSMN) TEJINDER RUIZ ([id number]) 1965 FDate Time Provider Department03/20/18 3:30 PM RAVEN BAUMAN UROSMN During your visit today, we recorded the following information about you:Carrie Amaya Ma 03/20/2018 4:11 PM SignedPRE PROCEDURE ASSESSMENT- CystoProcedure Indication: CystoscopyMay 2017, Time In: 15[address]Latex Allergy: NoAllergies reviewed and updated. YesPre-Procedure Vital Signs: BP: 166/86 Pulse: 82Heart valve replacement: NoJoint replacement: NoBack Office UA otained: in URODPatient brought to procedure room # 9 @ time 1548.Carrie Amaya MaPROCEDURE PREP-CystoPatient ID with two(2)identifiers verified by: Carrie Amaya [facility] Hospitalearmarilia valve replacement: NoJoint replacement: NoPre-Procedure Antibiotics: None taken at home nor prior to procedurePatient Prep: Betadine Scrub to perineum and placement of Sterile Drape.Roberto Bauman MD 03/21/2018 11:13 AM SignedPatient was prepped and draped in normal sterile fashion.Lidocaine with jelly was instilled into patient's urethra.No POP. Urethra normal to palpation without tenderness or masses.A flexible cystoscope was inserted into the bladder atraumatically.A pancystourethroscopy was performed.The urethra was unremarkable. No urethral stricture.Ureteral orifices were in orthotopic position.No masses, stones or diverticulum were noted. Punctate pigmented lesions at thebladder base consistent with patient's history of endometriosis. bilateral UOs were appreciated.Cystoscope was removed.Patient tolerated procedure well.Continuation of Office Note:A/P: Shimon Ruiz is a 52 year old with h/o urethral stricture, frequentUTI, urinary frequency, dysfunctional voiding.No urethral stricture on cystoscopy; no evidence of outlet obstruction notedUDS showed normal uroflow, no UI, low detrusor pressure with voiding andpushing to void.Discussed options of Botox vs Interstim. Interstim may be beneficial due to lowdetrusor pressure with voiding, but patient is not interested despite thisbeing our recommended management plan.Wants to consider proceeding with Botox injections, understands risk of urinaryretention and possible need for self cath.Fabiola Vu, Cherelle Hilliard RN 03/20/2018 4:57 PM SignedHands off communication obtained from Carrie Amaya Ma. Valentina CentenoUNIVERSAL PROTOCOL / SAFETY CHECKLISTProcedure to be performed: CystoscopySign in Communication: CompletedTime Out: Team Confirms the Correct Patient, Correct Procedure, Correct Siteand Site Marking, Correct Position (if applicable).Sign Out Discussion: Sathish MICHAELSOST PROCEDURE NURSE ASSESSMENTPresent along with physician during procedure exam. Valentina MICHAELSrocedure/Indication: CystoscopyInstruction sheet given and reviewed and patient verbalizes understanding: yesPost Procedure Antibiotic: patient will take her macrobid when she goes home;has her supply at homeCurrent pain intensity is 0 on a 0-10 pain scale.Valentina Hilliard RNAMBULATORY PATIENT EDUCATIONTHE FOLLOWING WAS EVALUATEDMotivation To Learn: InterestedFamily/Signific ant Other Support: High - Very involved in pt careCognitive Ability: Alert/OrientedMethod of Instruction: Teach Back Symptom ManagementIndividual instructionWritten instruction - handoutsVerbal instructionThe Following Influencing Factors Were Barriers To This Education Session: NoneThe Following Physical Limitations Were Barriers To This Education Session: NoneInstruction Provided To: PatientInterpreter Present: not applicableDiscipline: NursingLearning Topic: SURVIVAL SKILLS: Symptom ManagementPatient Evaluation: Verbalizes understanding: YesSupplemental Material Given: Written MaterialInstructed By Valentina Hilliard RN In Department Urology .Referring Provider: RAVEN BAUMAN [[id number]]Allergies As of Date: 03/20/2018 Noted Allergy ReactionKEFLEX (CEPHALEXIN) 03/20/2018 4 - Hives Comments: Itching, shortness of breathSTEROIDS (CORTICOSTEROIDS (GLUCOC*03/20/2018 12 - Shortness of Breath Comments: Oral steroids...vomiting, severe heartburnSULFA (SULFONAMIDE ANTIBIOTICS) 03/20/2018 11 - Vomiting Comments: Shortness of breath, itchingTRAMADOL 03/20/2018 9 - ItchingDate Reviewed: 03/20/2018Reviewed by: Angela Soriano MA - Fully AssessedPrimary Visit Diagnosis:Voiding dysfunction [N39.8]Prescriptions as of 03/20/2018 Sig: NITROFURANTOIN MONOHYDRATE AND * Take 100 mg by mouth twice da* TYLENOL EX STR ARTHRITIS PAIN* Take by mouth. ADVIL ORAL Take 600 mg by mouth. ALEVE ORAL Take by mouth. CHILDREN'S BENADRYL ALLERGY O* Take by mouth. BACLOFEN 10 MG TABLET Take 10 mg by mouth three bee* METHENAM 118 MG-M.BLUE 10 MG-* Take by mouth. BENAZEPRIL 5 MG TABLET Take 5 mg by mouth once daily. ESTRADIOL 0.5 MG TABLET Take 0.5 mg by mouth once darren* MULTIVITAMIN ORAL Take by mouth. ESTRADIOL 0.01% (0.1 MG/GRAM)* Apply finger tip amount of cr* ESTRADIOL 0.5 MG TABLET Take 0.5 mg by mouth. METHENAM 118 MG-M.BLUE 10 MG-* Take by mouth. BENAZEPRIL 5 MG TABLET Take 5 mg by mouth.Problem List As Of Date 03/20/2018 Noted Resolved Incomplete emptying of bladder [R33.9] INVALID FOR*Visit Notes:>> Carrie Amaya Ma MonMarch 20, 2018 3:49 PM Status: SignedPRE PROCEDURE ASSESSMENT- CystoProcedure Indication: CystoscopyMay 2017, Time In: 1548Latex Allergy: NoAllergies reviewed and updated. YesPre-Procedure Vital Signs: BP: 166/86 Pulse: 82Heart valve replacement: NoJoint replacement: NoBack Office UA otained: in URODPatient brought to procedure room # 9 @ time 1548.Carrie Amaya MaPROCEDURE PREP-CystoPatient ID with two(2)identifiers verified by: Carrie Monsivaisearmarilia valve replacement: NoJoint replacement: NoPre-Procedure Antibiotics: None taken at home nor prior to procedurePatient Prep: Betadine Scrub to perineum and placement of Sterile Drape.COMPLETEDCarrie Amaya MA>> Valentina Hilliard RN MonMarch 20, 2018 4:18 PM Status: SignedHands off communication obtained from Carrie Amaya Ma. Valentina Gomez RNUNIVERSAL PROTOCOL / SAFETY CHECKLISTProcedure to be performed: CystoscopySign in Communication: CompletedTime Out: Team Confirms the Correct Patient, Correct Procedure, CorrectSite and Site Marking, Correct Position (if applicable).Sign Out Discussion: Sathish Hilliard RNPOST PROCEDURE NURSE ASSESSMENTPresent along with physician during procedure exam. Valentina ChapmanNProcedure/Indicatio n: CystoscopyInstruction sheet given and reviewed and patient verbalizes understanding:yesPost Procedure Antibiotic: patient will take her macrobid when she goeshome; has her supply at homeCurrent pain intensity is 0 on a 0-10 pain scale.Valentina Hilliard RNAMBULATORY PATIENT EDUCATIONTHE FOLLOWING WAS EVALUATEDMotivation To Learn: InterestedFamily/Signific ant Other Support: High - Very involved in pt careCognitive Ability: Alert/OrientedMethod of Instruction: Teach Back Symptom ManagementIndividual instructionWritten instruction - handoutsVerbal instructionThe Following Influencing Factors Were Barriers To This Education Session:NoneThe Following Physical Limitations Were Barriers To This EducationSession: NoneInstruction Provided To: PatientInterpreter Present: not applicableDiscipline: NursingLearning Topic: SURVIVAL SKILLS: Symptom ManagementPatient Evaluation: Verbalizes understanding: YesSupplemental Material Given: Written MaterialInstructed By Valentina Hilliard RN In Department Urology .Letter TextTHE CENTERVILLEUROLOGICAL INSTITUTEAFTER YOUR CYSTOSCOPYYou have undergone a cystoscopy. Your doctor has inserted a telescope intoyour urinary bladder through your urethra to view the inside of your bladderand/or urethra.WHAT TO EXPECT * Possible burning during urination and/or blood-tinged urine.WHAT TO DO * Resume normal activity and medications. * Drink 6-8 glasses of fluid each day for 3 days to help flush yoururinary system.MEDICATIONS * If an antibiotic is prescribed, take it until ALL the medicationis gone. (If you miss a dose, continue when you remember and finish themedication completely.) * Other medication instructions: as prescribedWHEN TO CALL THE DOCTOR * If you have a fever over 100* Fahrenheit. * If you are unable to urinate. * If blood clots form in your urine. * If your urine becomes very bloody and does not clear with drinkingextra fluids.Between the hours of 9AM and 5PM call your doctor's office:Dr. Raven Bauman M.D., Office Phone #: [phone] 5 PM and on weekends for [facility] [place] physicians only:Call [phone] and ask for the urologist hospice liaison. The doctor will needto know that you have had a cystoscopy and what symptoms you are having. Status:Closed by RAVEN BAUMAN MD on 03/21/18 Normal [facility] CNOV Office Visit (UROLMN) TEJINDER RUIZ ([id number]) 1965 FDate Time Provider Department03/20/18 1:30 PM RAVEN BAUMAN During your visit today, we recorded the following information about you: Pulse Blood pressure Weight Height 97/minute 138/91 61.7 kg 1.575 Marcella Diego 03/20/2018 1:39 PM SignedPresent along with physician during pelvic exam. Amador Bauman MD 03/21/2018 11:17 AM Signed[facility] INSTITUTECENTER FOR VOIDING DYSFUNCTIONPATIENT HISTORY AND PHYSICAL EXAMPATIENT INFO: Shimon Ruiz is a 52 year old female.REFERRING M.D.: Addi Hays MD[address] [facility] [place] [id number] requested by Dr. Dr. Hays for an opinion regarding urinaryfrequency, and my final recommendations will be communicated back to therequesting physician by way of shared Medical record, fax or letter via USmail. HISTORY==== ===CHIEF COMPLAINT: urinary frequencyHPI : Shimon Riuz is a 52 year old female referred by Dr. Hays for iuxggeqqxvckkxqi98 years ago had frequent UTIs in pregnancyMultiple prior surgeries for ovarian cysts (PCOS)Hysterectomy and BSO in 1997, multiple UTIs afterwardsReferred to Dr. Hays and Dr. Alfredo ([facility]rologists-[facility]) and had acystoscopy 1997, diagnosed with urethral strictureContinued to have UTIs, urinary urgency/frequencyHas had multiple urethral dilations by Dr. Hays. Dilations help with pressurefeeling, but symptoms return over time.Has tried oxybutynin, Vesicare, Myrbetriq (felt like she couldn't empty herbladder on Vesicare and Myrbetriq)Also has IBS, gastritis, colitisKidney stones and stents in 2016Premarin cream irritated her skin, has not tried Estrace. Took HRT (POPremarin) after hysterectomy for 10-12 years, minimal bladder symptoms duringthat time, but was told by PCP to wean off HRT around age 48. Now takes POestradiol.Takes prophylactic antibiotic with intercourseUses a small self-cath when symptoms are worseningSUI: NoURGENCY: NoUI: NoPADS: NoFREQUENCY:10 per dayNOCTURIA: 3-6 per nightSTRAINING TO VOID: YesEMPTIES COMPLETELY: UnsureUTI: 3-4 past 12 months (culture proven)FLUIDS: 10-12Caffeine: 0SEXUALLY ACTIVE: yes, monogamousPREGNANCIES: 3, Para 3, Vaginal births 3Post-menopause:yes: age of menopause 32Have you had a hysterectomy:YESPostmenop ausal bleeding:NoSense of vaginal bulge:NOHEMATURIA HX: Yes, Gross (kidney stones)STONES: YesGI: IBSDo you have any new weakness,balance or coordination problems:NODo you have a history of any diagnosed back or Neurological problems:NOUDI-6Frequency :3UUI:0SUI:0Drops:0Diffic ulty:2Pain:1HISTORIES:PAS T MEDICAL HISTORYDiagnosis Date- Colitis- Fibromyalgia- Gastritis- IBS (irritable bowel syndrome)- Kidney stones- Migraine headache- NAFLD (nonalcoholic fatty liver disease)- Pancreatitis- PCOS (polycystic ovarian syndrome)- Urethral stricturePAST SURGICAL HISTORYProcedure Laterality Date- APPENDECTOMY 1971- CHOLECYSTECTOMY 2006- HYSTERECTOMY 1997 BSO- OTHER multiple urethral dilations- OTHER lithotripsy, ureteral stentsFAMILY HISTORYProblem Relation Age of Onset- anemia [OTHER] Mother- Diabetes Father- multiple myeloma [OTHER] Maternal Grandfather- Cancer Paternal Grandmother- Cancer Paternal GrandfatherSocial History Marital status: Spouse name: Years of education: Number of children:Social History Main Topics Smoking status: Never Smoker Smokeless tobacco: Never UsedThe patient's family history is not related to the condition for which thepatient is being seenMEDICATIONS:Current Outpatient Prescriptions:nitrofurant oin monohydrate and macrocrystal (MACROBID) 100 mg capsule Take 100mg by mouth twice daily.acetaminophen (TYLENOL EX STR ARTHRITIS PAIN ORAL) Take by mouth.ibuprofen (ADVIL ORAL) Take 600 mg by mouth.naproxen sodium (ALEVE ORAL) Take by mouth.diphenhydramine HCl (CHILDREN'S BENADRYL ALLERGY ORAL) Take by mouth.baclofen (LIORESAL) 10 mg tablet Take 10 mg by mouth three times daily.Mth-Me Blue-Sod Knvo-PxDwi-Lqi (URIBEL) 118-10-40.8-36 mg cap Take by mouth.benazepril (LOTENSIN) 5 mg tablet Take 5 mg by mouth once daily.Estradiol (ESTRACE) 0.5 mg tablet Take 0.5 mg by mouth once daily.MULTIVITAMIN ORAL Take by mouth.No current facility-administered medications for this visit.ALLERGIES:Keflex [Cephalexin]; Steroids [Corticosteroids (Glucocorticoids)]; Sulfa(Sulfonamide Antibiotics); TramadolGENERAL REVIEW OF SYSTEMS: PHYSICAL EXAM: VITAL SIGNS: BP 138/91 (BP Site: Left Arm, BP Position: Sitting, BP Cuff Size:Regular Adult) Pulse 97 Ht 157.5 cm (5' 2 ) Wt 61.7 kg (136 lb) BMI24.87 kg/m?GENERAL: Well appearing, alert, in no acute distress, well-hydrated, wellnourished.No results found for: CREATpH, Urine (no units)Date Value03/20/2018 6.5 Specific [place], Ur (no units)Date Value03/20/2018 1.008 Glucose, Urine (mg/dL)Date Value03/20/2018 Negative Bilirub in, Urine (no units)Date Value03/20/2018 Negative Ketones , Urine (no units)Date Value03/20/2018 Negative Hemoglo bin/Blood,Ur ( )Date Value03/20/2018 Negative Protein , Urine (mg/dL)Date Value03/20/2018 Negative Urobili nogen (no units)Date Value03/20/2018 Normal Nitrites (no units)Date Value03/20/2018 Negative IMPRESS ION:History of urethral stricture, frequent UTI, urinary frequency, dysfunctionalvoidingPLAN: Video UDS and cystoscopy todayNo urethral stricture on cystoscopyUDS showed normal uroflow, no UI, low detrusor pressure with voiding andpushing to void.Discussed options of Botox vs Interstim. Interstim may be beneficial due to lowdetrusor pressure with voiding ?Fowlers syndrome picture, but patient is notinterested.Wants to consider proceeding with Botox injections, understands risk of urinaryretention and possible need for self cath; will seek prior authorization forBotox use in bladder for urgency and frequency.Prior Authorization for Botox Bladder use:Dx: urgency and frequencyUrodynamics - completedFailed behavioral modifications and more that 2 OAB medications; developed sideeffectsTonya MD HimanshuElectronically signed STAFF NOTE:I have personally modified the HPI AND ROS, performed a PE AND a face to facediagnostic evaluation on this patient AND discussed the above plan.Lakesha VargasffCenter for Female Pelvic Medicine and Reconstructive SurgeryElectronically signedI spent 60 minutes in the visit, with more than 50% of the total evji-ij-qummwdcv of the visit in counseling / coordination of care.Referring Provider: ADDI HAYS [[id number]]Allergies As of Date: 03/20/2018 Noted Allergy ReactionKEFLEX (CEPHALEXIN) 03/20/2018 4 - Hives Comments: Itching, shortness of breathSTEROIDS (CORTICOSTEROIDS (GLUCOC*03/20/2018 12 - Shortness of Breath Comments: Oral steroids...vomiting, severe heartburnSULFA (SULFONAMIDE ANTIBIOTICS) 03/20/2018 11 - Vomiting Comments: Shortness of breath, itchingTRAMADOL 03/20/2018 9 - ItchingDate Reviewed: 03/20/2018Reviewed by: Angela Soriano MA - Fully AssessedPrimary Visit Diagnosis:Screening for genitourinary condition [Z13.89] Other Visit Diagnoses:Urinary frequency [R35.0] Frequent UTI [N39.0] Dysfunctional voiding of urine [N39.8] History of urethral stricture [Z87.448] Urgency of urination [R39.15]Order(s):UA CHEMSTRIP ONLY [SQUA] Order #: [id number] FUTURE UA CHEMSTRIP ONLY [SQUA] Order #: [id number]. #:[id number] estradiol (ESTRACE) 0.01 % (0.1 mg/gram) vaginal creamApply finger tip amount of cream to vaginal opening every other night.Disp: 1 TubeRfl: 5Prescriptions as of 03/20/2018 Sig: NITROFURANTOIN MONOHYDRATE AND * Take 100 mg by mouth twice da* TYLENOL EX STR ARTHRITIS PAIN* Take by mouth. ADVIL ORAL Take 600 mg by mouth. ALEVE ORAL Take by mouth. CHILDREN'S BENADRYL ALLERGY O* Take by mouth. BACLOFEN 10 MG TABLET Take 10 mg by mouth three bee* METHENAM 118 MG-M.BLUE 10 MG-* Take by mouth. BENAZEPRIL 5 MG TABLET Take 5 mg by mouth once daily. ESTRADIOL 0.5 MG TABLET Take 0.5 mg by mouth once darren* MULTIVITAMIN ORAL Take by mouth. ESTRADIOL 0.01% (0.1 MG/GRAM)* Apply finger tip amount of cr*Problem List As Of Date 03/20/2018 Noted Resolved Incomplete emptying of bladder [R33.9] INVALID FOR*Visit Notes:>> Amador Diego e March 20, 2018 1:39 PM Status: SignedPresent along with physician during pelvic exam. Amador DiegoPrescriptions ordered this encounter Disp Refills Start End ESTRADIOL 0.01% (0.1 MG/GRAM) VAGINA* 1 Tu* 5 03/20/2018 Cmt: Skin irritation on Premarin (insurance preferred). Please fill Estrace as alternative to Premarin and call if coverage issue. Sig: Apply finger tip amount of cream to vaginal opening every other night. Status:Closed by RAVEN BAUMAN MD on 03/21/18 Normal [facility] CNOV Office Visit (UROLMN) TEJINDER RUIZ ([id number]) 1965 FDate Time Provider Department03/20/18 10:30 AM RAVEN BAUMAN During your visit today, we recorded the following information about you:Raven Bauman MD 03/22/2018 9:10 AM SignedOutside records:Notes from Dr. HaysUrethral dilations in 52 yoIncomplete emptying per notesReferring Provider: ADDI HAYS [[id number]]Allergies As of Date: 03/20/2018 Noted Allergy ReactionKEFLEX (CEPHALEXIN) 03/20/2018 4 - Hives Comments: Itching, shortness of breathSTEROIDS (CORTICOSTEROIDS (GLUCOC*03/20/2018 12 - Shortness of Breath Comments: Oral steroids...vomiting, severe heartburnSULFA (SULFONAMIDE ANTIBIOTICS) 03/20/2018 11 - Vomiting Comments: Shortness of breath, itchingTRAMADOL 03/20/2018 9 - ItchingDate Reviewed: 03/20/2018Reviewed by: Angela Soriano MA - Fully AssessedPrimary Visit Diagnosis:Incomplete emptying of bladder [R33.9]Problem List As Of Date 03/20/2018 Noted Resolved Incomplete emptying of bladder [R33.9] INVALID FOR* Status:Closed by RAVEN BAUMAN MD on 03/22/18 Normal [facility] HISTORY PHYSICALon 8 HISTORY PHYSICAL HNO ID: [id number] thor: Raven BaumanService: (none)Author Type: PhysicianType: HANDPFiled: 03/21/2018 11:17 AMNote Text:[facility]STITUTECENTER FOR VOIDING DYSFUNCTIONPATIENT HISTORY AND PHYSICAL EXAMPATIENT INFO: Shimon Ruiz is a 52 year old female.REFERRING M.D.: Addi Hays MD[address] [facility] [place] [address]Fsxcvrwuhtmb requested by Dr. Dr. Hays for an opinion regarding urinaryfrequency, and my final recommendations will be communicated back to therequesting physician by way of shared Medical record, fax or letter via USmail. HISTORY==== ===CHIEF COMPLAINT: urinary frequencyHPI : Shimon Ruiz is a 52 year old female referred by Dr. Hays forurinary enodfdvwx31 years ago had frequent UTIs in pregnancyMultiple prior surgeries for ovarian cysts (PCOS)Hysterectomy and BSO in 1997, multiple UTIs afterwardsReferred to Dr. Hays and Dr. Alfredo ([facility]) andhad a cystoscopy 1997, diagnosed with urethral strictureContinued to have UTIs, urinary urgency/frequencyHas had multiple urethral dilations by Dr. Hays. Dilations help withpressure feeling, but symptoms return over time.Has tried oxybutynin, Vesicare, Myrbetriq (felt like she couldn't emptyher bladder on Vesicare and Myrbetriq)Also has IBS, gastritis, colitisKidney stones and stents in 2016Premarin cream irritated her skin, has not tried Estrace. Took HRT (POPremarin) after hysterectomy for 10-12 years, minimal bladder symptomsduring that time, but was told by PCP to wean off HRT around age 48. Nowtakes PO estradiol.Takes prophylactic antibiotic with intercourseUses a small self-cath when symptoms are worseningSUI: NoURGENCY: NoUI: NoPADS: NoFREQUENCY:10 per dayNOCTURIA: 3-6 per nightSTRAINING TO VOID: YesEMPTIES COMPLETELY: UnsureUTI: 3-4 past 12 months (culture proven)FLUIDS: 10-12Caffeine: 0SEXUALLY ACTIVE: yes, monogamousPREGNANCIES: 3, Para 3, Vaginal births 3Post-menopause:yes: age of menopause 32Have you had a hysterectomy:YESPostmenop ausal bleeding:NoSense of vaginal bulge:NOHEMATURIA HX: Yes, Gross (kidney stones)STONES: YesGI: IBSDo you have any new weakness,balance or coordination problems:NODo you have a history of any diagnosed back or Neurological problems:NOUDI-6Frequency :3UUI:0SUI:0Drops:0Diffic ulty:2Pain:1HISTORIES:PAS T MEDICAL HISTORYDiagnosis Date- Colitis- Fibromyalgia- Gastritis- IBS (irritable bowel syndrome)- Kidney stones- Migraine headache- NAFLD (nonalcoholic fatty liver disease)- Pancreatitis- PCOS (polycystic ovarian syndrome)- Urethral stricturePAST SURGICAL HISTORYProcedure Laterality Date- APPENDECTOMY 1971- CHOLECYSTECTOMY 2006- HYSTERECTOMY 1997 BSO- OTHER multiple urethral dilations- OTHER lithotripsy, ureteral stentsFAMILY HISTORYProblem Relation Age of Onset- anemia [OTHER] Mother- Diabetes Father- multiple myeloma [OTHER] Maternal Grandfather- Cancer Paternal Grandmother- Cancer Paternal GrandfatherSocial History Marital status: Spouse name: Years of education: Number of children:Social History Main Topics Smoking status: Never Smoker Smokeless tobacco: Never UsedThe patient's family history is not related to the condition for which thepatient is being seenMEDICATIONS:Current Outpatient Prescriptions:nitrofurant oin monohydrate and macrocrystal (MACROBID) 100 mg capsule [id number] mg by mouth twice daily.acetaminophen (TYLENOL EX STR ARTHRITIS PAIN ORAL) Take by mouth.ibuprofen (ADVIL ORAL) Take 600 mg by mouth.naproxen sodium (ALEVE ORAL) Take by mouth.diphenhydramine HCl (CHILDREN'S BENADRYL ALLERGY ORAL) Take by mouth.baclofen (LIORESAL) 10 mg tablet Take 10 mg by mouth three times daily.[facility] Blue-Sod Ttim-WuRxt-Apz (URIBEL) 118-10-40.8-36 mg cap Take bymouth.benazepril (LOTENSIN) 5 mg tablet Take 5 mg by mouth once daily.Estradiol (ESTRACE) 0.5 mg tablet Take 0.5 mg by mouth once daily.MULTIVITAMIN ORAL Take by mouth.No current facility-administered medications for this visit.ALLERGIES:Keflex [Cephalexin]; Steroids [Corticosteroids (Glucocorticoids)]; Sulfa(Sulfonamide Antibiotics); TramadolGENERAL REVIEW OF SYSTEMS: PHYSICAL EXAM: VITAL SIGNS: BP 138/91 (BP Site: Left Arm, BP Position: Sitting, BP CuffSize: Regular Adult) Pulse 97 Ht 157.5 cm (5' 2 ) Wt 61.7 kg (136lb) BMI 24.87 kg/m?GENERAL: Well appearing, alert, in no acute distress, well-hydrated, wellnourished.No results found for: CREATpH, Urine (no units)Date Value03/20/2018 6.5 Specific [place], Ur (no units)Date Value03/20/2018 1.008 Glucose, Urine (mg/dL)Date Value03/20/2018 Negative Bilirub in, Urine (no units)Date Value03/20/2018 Negative Ketones , Urine (no units)Date Value03/20/2018 Negative Hemoglo bin/Blood,Ur ( )Date Value03/20/2018 Negative Protein , Urine (mg/dL)Date Value03/20/2018 Negative Urobili nogen (no units)Date Value03/20/2018 Normal Nitrites (no units)Date Value03/20/2018 Negative IMPRESS ION:History of urethral stricture, frequent UTI, urinary frequency,dysfunctional voidingPLAN:Video UDS and cystoscopy todayNo urethral stricture on cystoscopyUDS showed normal uroflow, no UI, low detrusor pressure with voiding andpushing to void.Discussed options of Botox vs Interstim. Interstim may be beneficial dueto low detrusor pressure with voiding ?Fowlers syndrome picture, butpatient is not interested.Wants to consider proceeding with Botox injections, understands risk ofurinary retention and possible need for self cath; will seek priorauthorization for Botox use in bladder for urgency and frequency.Prior Authorization for Botox Bladder use:Dx: urgency and frequencyUrodynamics - completedFailed behavioral modifications and more that 2 OAB medications; developedside effectsHermila Downs MDElectronically signed STAFF NOTE:I have personally modified the HPI AND ROS, performed a PE AND a face to facediagnostic evaluation on this patient AND discussed the above plan.TAYE VargasTrinity Health Livingston [facility] for Female Pelvic Medicine and Reconstructive SurgeryElectronically signedI spent 60 minutes in the visit, with more than 50% of the wfbdltofx-ci-jzou time of the visit in counseling / coordination of care. Normal [facility] PROGRESSon 03-20-2018 PROGRESS HNO ID: [id number] thor: Raven BaumanService: (none)Author Type: PhysicianType: Progress NotesFiled: 03/21/2018 11:13 AMNote Text:Patient was prepped and draped in normal sterile fashion.Lidocaine with jelly was instilled into patient's urethra.No POP. Urethra normal to palpation without tenderness or masses.A flexible cystoscope was inserted into the bladder atraumatically.A pancystourethroscopy was performed.The urethra was unremarkable. No urethral stricture.Ureteral orifices were in orthotopic position.No masses, stones or diverticulum were noted. Punctate pigmented lesionsat the bladder base consistent with patient's history of endometriosis. bilateral UOs were appreciated.Cystoscope was removed.Patient tolerated procedure well.Continuation of Office Note:A/P: Shimon Ruiz is a 52 year old with h/o urethral stricture,frequent UTI, urinary frequency, dysfunctional voiding.No urethral stricture on cystoscopy; no evidence of outlet obstructionnotedUDS showed normal uroflow, no UI, low detrusor pressure with voiding andpushing to void.Discussed options of Botox vs Interstim. Interstim may be beneficial dueto low detrusor pressure with voiding, but patient is not interesteddespite this being our recommended management plan.Wants to consider proceeding with Botox injections, understands risk ofurinary retention and possible need for self cath.Fabiola Vu MD Normal [facility] Urinalysison 03-20-2018 Bilirubin, Urine Negative Normal Negative [facility] Comment on above: Performed By: #### U A ####[place] [id number]CJ[address] [place] [phone] Comments SEE COMMENT Normal [facility] Comment on above: Result Comment: Micr oscopic not warranted Performed By: #### U A ####[facility]CJ[address] [place] [phone] Hemoglobin mass conc (Bld) Negative Normal Negative [facility] Comment on above: Performed By: #### U A ####[place] [address] [address] [place] [phone] Leukest Negative Normal Negative [facility] Comment on above: Performed By: #### U A ####[place] [address] [place] [phone] pH of blood 6.5 [pH] Normal 4.5-8.0 [facility] Comment on above: Performed By: #### U A ####[facility]CJerry [place] [phone] Protein, Urine Negative Normal Negative [facility] Comment on above: Performed By: #### U A ####[facility] [place] [phone] Specific [place], Ur 1.008 Normal 1.005-1.030 [facility] Comment on above: Performed By: #### U A ####[facility] [place] [phone] Urine Ezekiel Comment SEE COMMENT Normal [facility] Comment on above: Result Comment: N/A Performed By: #### U A ####[facility]ClevelRobert Ville [phone] Urine, clarity Clear Normal Clear [facility] Comment on above: Performed By: #### U A ####[facility] AvIsidroDunlap, [place] [phone] Urine, color Yellow Normal Yellow [facility] Comment on above: Performed By: #### U A ####[facility] [facility], [place] [phone] Urine, glucose presence Negative Normal Negative [facility] Comment on above: Performed By: #### U A ####[facility]Jasmine [address] [phone] Urine, ketones presence Negative Normal Negative [facility] Comment on above: Performed By: #### U A ####[place] [id number]Way[facility], [place] [phone] Urine, nitrite presence Negative Normal Negative [facility] Comment on above: Performed By: #### U A ####[place] [phone] Urine, urobilinogen Normal Normal Normal [facility] Comment on above: Performed By: #### U A ####[place] [phone] PROGRESSon 03-13-2018 PROGRESS HNO ID: [id number] Author: Raven Bauman Service: (none) Author Type: Physician Type: Progress Notes Filed: 03/22/2018 9:10 AM Note Text: Outside records: Notes from Dr. Hays Urethral dilations in 52 yo Incomplete emptying per notes Normal [facility] Andres 02-27-2018 CNPN Telephone (GLQ) SHIMON RUIZ ([id number]) 1965 FDate Time Provider Department02/27/18 MIUTL, RAVEN R GLQ During your visit today, we recorded the following information about you:Nichole Grey Shah 02/27/2018 1:43 PM Addendmadison Hinkle for patient in request to outside records prior to up comingappointment with Dr. Lozano As of Date: 02/27/2018(Not on File)Date Reviewed: Never ReviewedReason for Visit: Request Outside Medical Records [[id number]]Problem List As Of Date: 02/27/2018(None) Status:Closed by NICHOLE CORDOVA on 02/27/18 Normal [facility] Vital Signs Date Time Vital Sign Value Performing Clinician Facility 08-21-2024 11:05-0400 Body height 157.5 cm 99Bill Phone: [facility] 08-21-2024 11:05-0400 Body mass index (BMI) [Ratio] 23.59 kg/m2 [employer] Phone: [facility] 08-21-2024 11:05-0400 Body weight 58.51 kg [employer] Phone: [facility] 08-21-2024 11:05-0400 Diastolic blood pressure 76 mm[Hg] [employer] Phone: [facility] 08-21-2024 11:05-0400 Systolic blood pressure 118 mm[Hg] [employer] Phone: [facility] 07-24-2024 11:10-0400 Blood Pressure Location [employer] [facility] 07-24-2024 11:10-0400 Diastolic blood pressure 91 mm[Hg] [employer] [facility] 07-24-2024 11:10-0400 Heart rate 82 /min [employer] [facility] 07-24-2024 11:10-0400 Systolic blood pressure 141 mm[Hg] [employer] [facility] 07-28-2023 12:24-0400 Diastolic blood pressure 96 mm[Hg] [facility] 07-28-2023 12:24-0400 Heart rate 74 /min [facility] 07-28-2023 12:24-0400 Mean blood pressure 111 mm[Hg] [facility] 07-28-2023 12:24-0400 Respiratory rate 18 /min [facility] 07-28-2023 12:24-0400 SaO2% (BldA) [Mass fraction] 100 % [facility] 07-28-2023 12:24-0400 Systolic blood pressure 141 mm[Hg] [facility] 07-28-2023 11:49-0400 Hourly Rounding [facility] 07-28-2023 11:49-0400 Promise to Return [facility] 07-28-2023 11:48-0400 Diastolic blood pressure 93 mm[Hg] [facility] 07-28-2023 11:48-0400 Heart rate 76 /min [facility] 07-28-2023 11:48-0400 Mean blood pressure 106 mm[Hg] [facility] 07-28-2023 11:48-0400 Respiratory rate 18 /min [facility] 07-28-2023 11:48-0400 SaO2% (BldA) [Mass fraction] 99 % [facility] 07-28-2023 11:48-0400 Systolic blood pressure 132 mm[Hg] [facility] 07-28-2023 10:42-0400 Diastolic blood pressure 88 mm[Hg] [facility] 07-28-2023 10:42-0400 Heart rate 76 /min [facility] 07-28-2023 10:42-0400 Hourly Rounding [facility] 07-28-2023 10:42-0400 Mean blood pressure 105 mm[Hg] [facility] 07-28-2023 10:42-0400 Promise to Return [facility] 07-28-2023 10:42-0400 Respiratory rate 18 /min [facility] 07-28-2023 10:42-0400 SaO2% (BldA) [Mass fraction] 99 % [facility] 07-28-2023 10:42-0400 Systolic blood pressure 139 mm[Hg] [facility] 07-28-2023 09:46-0400 Hourly Rounding [facility] 07-28-2023 09:46-0400 Promise to Return [facility] 07-28-2023 08:26-0400 Body temperature 97.7 [degF] [facility] 07-28-2023 08:26-0400 Heart rate 96 /min [facility] 06-14-2023 09:11-0400 Blood Pressure Location [facility] 06-14-2023 09:11-0400 Diastolic blood pressure 87 mm[Hg] [employer] [facility] 06-14-2023 09:11-0400 Heart rate 79 /min [facility]i [facility] 06-14-2023 09:11-0400 Systolic blood pressure 134 mm[Hg] [facility] [facility] 08-02-2022 11:25-0400 Blood Pressure Location [facility] 08-02-2022 11:25-0400 Diastolic blood pressure 101 mm[Hg] [employer] [facility] 08-02-2022 11:25-0400 Heart rate 79 /min [facility] 08-02-2022 11:25-0400 Respiratory rate 16 /min [facility] 08-02-2022 11:25-0400 Systolic blood pressure 140 mm[Hg] [employer] [facility] 11-29-2021 11:45-0500 Body height 157.48 cm Oscar Chris Other [employer] Other 11-29-2021 11:45-0500 Body mass index (BMI) [Ratio] 23.59 kg/m2 Oscar Chris Other [employer] Other 11-29-2021 11:45-0500 Body weight 58.51 kg Oscar Chris Other [employer] Other 11-29-2021 11:45-0500 Diastolic blood pressure 102 mm[Hg] Oscar Chris Other [employer] Other 11-29-2021 11:45-0500 Systolic blood pressure 136 mm[Hg] Oscar Chris Other [employer] Other 08-17-2021 16:15-0400 Body height 157.48 cm Oscar Chris Other [employer] Other 08-17-2021 16:15-0400 Body mass index (BMI) [Ratio] 23.41 kg/m2 Oscar Chris Other [employer] Other 08-17-2021 16:15-0400 Body weight 58.06 kg Oscar Chris Other [employer] Other Encounters Encounter Date Encounter Type Care Provider Facility Start: 01-29-2025 ambulatory Addi HAYS Facility :[facility] Start: 08-21-2024 End: 08-21-2024 Patient encounter procedure Anthony Ibarra DO Work Phone: [facility] Comment on above: Encounter for gyneco logical examination without abnormal finding (Primary Dx); Encounter for Papanicolaou smear of vagina; Breast cancer screening by mammogram; Hormone replacement therapy (HRT); Vaginal itching Start: 08-21-2024 End: 08-21-2024 Patient encounter status Anthony Ibarra DO Work Phone: [facility] Start: 08-21-2024 End: 08-21-2024 ambulatory ANTHONY IBARRA Not Available Start: 07-24-2024 End: 07-24-2024 ambulatory Addi HAYS Facility:[facility] Start: 07-24-2024 End: 07-24-2024 Patient encounter procedure Addi Mike HAYS [facility] Start: 07-28-2023 End: 07-28-2023 Emergency department patient visit [facility] Start: 06-14-2023 End: 06-14-2023 Patient encounter procedure Addi HAYS [facility] Start: 04-25-2023 End: 04-25-2023 Patient encounter procedure SELF REFERRAL [facility] Start: 02-06-2023 End: 02-06-2023 Patient encounter procedure LATONYA ERNANDEZ [facility] Start: 08-30-2022 End: 08-30-2022 Patient encounter procedure FESTUS DICKERSON [facility] Start: 08-02-2022 End: 08-02-2022 Patient encounter procedure Addi HAYS [facility] Start: 07-11-2022 End: 07-11-2022 ambulatory Festus Dickerson Facility:[facility] Start: 07-11-2022 End: 07-11-2022 Patient encounter procedure DO Festus Dickerson Work Phone: [facility] Start: 06-08-2022 End: 06-08-[address] FESTUS DICKERSON Facility:[facility] Start: 05-03-2022 End: 05-04-[address] FESTUS DICKERSON Facility:[facility] Start: 03-01-2022 End: 03-01-2022 Patient encounter procedure Addi HAYS [facility] Start: 02-16-2022 End: 02-16-2022 Patient encounter procedure Addi HAYS [facility] Start: 11-29-2021 End: 11-29-2021 ambulatory Oscar Sankes Other [employer] Other Start: 11-29-2021 Office outpatient vi sit 25 minutes Oscar Hykes [facility] Start: 09-29-2021 End: 09-29-2021 ambulatory Oscar Sankes Other [employer] Other Start: 09-29-2021 Telephone encounter Oscar Chris [facility] Start: 09-28-2021 End: 09-28-2021 ambulatory Oscar Sankes Other [employer] Other Start: 09-28-2021 Telephone encounter Oscar Chris [facility] Start: 09-08-2021 Telephone encounter Oscar Chris [facility] Start: 08-17-2021 Office outpatient ne w 45 minutes Oscar Hykes [facility] Start: 06-29-2021 End: 06-30-[address] FESTUS DICKERSON Facility:[facility] Start: 06-22-2021 End: 06-23-[address] FESTUS DICKERSON Facility:[facility] Start: 06-15-2021 End: 06-16-[address] FESTUS DICKERSON Facility:[facility] Start: 06-14-[address] FESTUS DICKERSON Facili ty:[facility] Start: 03-20-2018 End: 03-23-2018 Ambulatory [facility] Start: 03-20-2018 End: 03-23-2018 Ambulatory [facility] Procedures Date Procedure Procedure Detail Performing Clinician Start: 07-11-2022 Plain chest X-ray DO Be njamin Ball Work Phone: Start: 08-14-2019 Dilation of urethra Sai HAYS Comment on above: 02/05/2020 Start: 09-20-2016 Removal of ureteral stent Addi HAYS Comment on above: right ureteral Start: 03-22-2016 Colonoscopy Addi WISDOM Appendectomy Addi HAYS Cholecystectomy Addi HAYS Excision of osteophyte AHMAD AWAIS H/O: hysterectomy Addi WISDOM History of insertion of stent into ureter Addi HAYS Comment on above: Right ureteral Left ureteral Lithotripsy Addi HAYS Removal of ureteral stent Gr dash HAYS Comment on above: Left ureteral Plan of Treatment Date Care Activity Detail Author Start: 08-21-2024 End: 10-21-2025 DBT Breast - bilateral screening Bilateral screening mammogram with tomosynthesis Imaging Routine Breast cancer screening by mammogram Expected: 08/21/2024, Expires: 10/21/2025 [employer] Comment on above: Expected: 08/21/2024 , Expires: 10/21/2025 SENDOUT TEST MISCELLANEOUS [facility] SENDOUT TEST MISCELLANEOUS [facility] Lab Routine Encounter for Papanicolaou smear of vagina Ordered: 08/21/2024 [employer] Work Phone: Comment on above: Ordered: 08/21/2024 Immunizations Immunization Date Immunization Notes Care Provider Caio chung 04-09-2018 tetanus toxoid, redu alex diphtheria toxoid, and acellular pertussis vaccine, adsorbed Addi HAYS [facility] Payers Date Payer Category Payer Medicaid [employer] [place] [employer] [place] [id number] 2024-Present [address] [address] [place] [address] [id number] 2022 Self-pay [id number] 1965 Unknown [id number] 1963 Unknown [id number] 1963 Unknown [id number] 1963 Unknown [id number] 1963 Unknown [id number] 1963 Unknown [id number] 1963 Unknown [id number] 1963 Unknown [id number] 1963 Unknown [id number] 1959 Unknown [id number] Unknown [id number] Social History Date Type Detail Facility Start: 02-16-2022 End: 04-04-2023 Tobacco smoking status Never smoked tobacco (finding) [facility] [employer] Other Start: 08-21-2024 Sex Assigned At Female N [facility] [employer] Other Start: 1965 Sex Assigned At Female F [facility] Start: 08-21-2024 Alcoholic beverage intake Lifetime non-drinker (finding) [facility] Start: 08-21-2024 History of Social function [facility] How often to you hav e a drink containing alcohol? Never [facility] How many standard drinks containing alcohol do you have on a typical day? Patient does not drink [facility] Start: 04-27-2023 Alcohol Comment caffeine intake: non e [facility] Start: 1965 Sex assigned at Not on file N [facility] Functional Status Date Assessment Result Facility 07-24-2024 Functional Status N/A [facility] 07-28-2023 Functional Status N/A [facility] 06-14-2023 Functional Status N/A [facility] 08-02-2022 Functional Status N/A [facility] Clinical Notes 08-17-2021 to 08-21-2024 Huong Hurst MA - 08/21/2024 11:00 AM EDT Note Date & Type Note Facility 08-21-2024 History of Present illness Narrative Images from the original note were not included. Anthony Ibarra, DO Obstetrics and Gynecology Shimon Ruiz 1965 08/21/24 [id number] Yearly Wellness Exam Chief Complaint Patient presents with Gynecologic Exam Accompanied by , Willard. LMP: MAGDIEL 1997 HRT: Estradiol 0.5 MG - satisfied. Last pap 04-11-23 neg. Last mammogram 04-25-23 [facility]. Denies breast, urinary, or bowel concerns. Visit Vitals BP 118/76 Ht 5' 2 Wt 129 lb BMI 23.59 kg/m OB Status Hysterectomy Smoking Status Never BSA 1.6 m OB History Para Term AB Living 4 3 3 0 1 3 SAB IAB Ectopic Multiple Live Births 1 3 # Outcome Date GA Lbr Lei/2nd Weight Sex Type Anes PTL Lv 4 Term 1992 Vag-Spont GERRI 3 Term 1990 Vag-Spont GERRI 2 SAB 1987 1 Term 1985 Vag-Spont GERRI Current Outpatient Medications Medication Sig Dispense Refill baclofen (Lioresal) 10 MG tablet Take 10 mg by mouth in the morning and 10 mg at noon and 10 mg in the evening and 10 mg before bedtime. Meth-Hyo-M Bl-Na Phos-Ph Fercho (Uro-MP) 118 MG capsule Take 1 capsule by mouth in the morning and 1 capsule before bedtime. Acetaminophen (TYLENOL ARTHRITIS PAIN PO) Tylenol Arthritis Pain benazepril (Lotensin) 5 MG tablet TAKE 1 TABLET BY MOUTH ONCE DAILY Oral for 30 Cannabinoids (medical cannabis) Medical Marijuana estradiol (Estrace) 0.5 MG tablet TAKE 1 TABLET BY MOUTH EVERY DAY FOR 90 DOSES 90 tablet 3 Ibuprofen (Advil) capsule take 1 tablet (200MG) by ORAL route every 6 hours as needed with food Oral Multiple Vitamin (multivitamin) capsule as directed Orally nitrofurantoin, macrocrystal-monohydrate, (Macrobid) 100 MG capsule every 12 (twelve) hours. No current facility-administered medications for this visit. Allergies Allergen Reactions Corticosteroids GI intolerance and Unknown Oral steroids...vomiting, severe heartburn Other Reaction(s): severe heartburn and vomiting Other Reaction(s): severe heartburn and vomiting Other Reaction(s): severe heartburn and vomiting Other Reaction(s): severe heartburn and vomiting Wound Dressing Adhesive Rash Cephalexin Other Reaction(s): severe itching Cephalosporins Unknown Ciprofloxacin Unknown Clotrimazole Codeine Other Reaction(s): severe vomiting Gabapentin Other Reaction(s): headache, flushing Levofloxacin Unknown Prednisone Other Reaction(s): severe heartburn and vomiting Pyridium [Phenazopyridine] Sulfamethoxazole-Trimethoprim Other Reaction(s): hvies & wheezing Sulfanilamide Other Reaction(s): Hives & wheezing Tramadol Other Reaction(s): severe itching Trimethoprim Unknown Doxycycline Unknown and Palpitations Other reaction(s): Other (See Comments) Past Surgical History: Procedure Laterality Date APPENDECTOMY CHOLECYSTECTOMY 2007 CYSTOSCOPY 2000 CYSTOSCOPY 1986 CYSTOSCOPY 12/2020 D&C FIRST TRIMESTER / TX INCOMPLETE / MISSED / SEPTIC / INDUCED 1987 HEEL SPUR SURGERY 06/2022 LAPAROTOMY OVARIAN CYSTECTOMY 1985 LITHOTRIPSY Left 10/2015 stent - basket LITHOTRIPSY Right OTHER SURGICAL HISTORY 03/2019 dilation TOTAL ABDOMINAL HYSTERECTOMY 1998 URETEROSCOPY 2016 with basket URETHRA DILATION Past Medical History: Diagnosis Date Appendicitis Arthritis Bone spur of right foot Chronic UTI COVID-19 08/10 Family history of urethral stenosis Fibromyalgia Gastritis Hypertension (CMS/[facility]) IBS (irritable bowel syndrome) Kidney stone Kidney stone- 3mm in R kidney 01/2022 Kidney stones bilateral Listed for admission to hospital x4 hospital stays for kidney issues Migraines ([facility]) Overactive bladder Personal history of other medical treatment urethral stenosis ROS Const: Denies appetite change, fever, chills. Allergy: Denies medication reaction. Ocular: Denies visual acuity change. ENT: Denies hearing change. Endoc: Denies weight loss. Resp: Denies dyspnoea, wheezing. Cardiac: Denies angina, palpitations. GI: Denies nausea, vomiting. Haem: Denies bleeding. : Denies incontinence. MSK: Denies arthralgias, joint oedema. Derm: Denies rash, hair loss. Neuro: Denies ataxia, tremor. Also see HPI for elements of ROS documented therein and for details of positive findings, which shall supersede the foregoing. EXAM GENERAL EXAMINATION alert oriented well developed, well nourished. HEAD: normocephalic atraumatic. EYES: sclera anicteric. EARS: no obvious hearing deficit. NECK/THYROID: neck supple no cervical lymphadenopathy no thyromegaly. LYMPH NODES: no axillary, supraclavicular or inguinal adenopathy. SKIN: warm and dry. HEART: regular rate and rhythm. LUNGS: clear to auscultation bilaterally. CHEST:axillary nodes grossly normal. BREASTS:no masses palpable bilaterally, normal nipples bilaterally - everted -fatty replaced - dense - well supported- axilla negative. ABDOMEN: soft, nontender, nondistended, no masses palpable. BACK: no costovertebral angle tenderness, no obvious scoliosis/kyphosis. 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 EXTREMITIES no edema. NEUROLOGIC: alert and oriented. PSYCH: cooperative with exam. ICD-10-CM 1. Encounter for gynecological examination without abnormal finding Z01.419 Pelvic and breast exam completed. Findings of today's exam discussed with the patient. Continue MSBE. Ca/Vit D recommendations reviewed with the patient. The patient is to contact the office with any changes to her gynecological condition or any changes with breast or bleeding. The patient is to return in 1 year or as needed 2. Encounter for Papanicolaou smear of vagina Z12.72 SENDOUT TEST MISCELLANEOUS [facility] Thinprep collected. Will notify patient if results are abnormal. 3. Breast cancer screening by mammogram Z12.31 Bilateral screening mammogram with tomosynthesis Screening mammogram ordered. Patient to call and schedule. 4. Hormone replacement therapy (HRT) Z79.890 estradiol (Estrace) 0.5 MG tablet She voiced she tried to wean off Estradiol in the past, was symptomatic. Would like to continue. 5. Vaginal itching Wears pad everyday. Nothing visible on exam. Moisture is biggest offender. Educated staying dry, and using 1% OTC hydrocortisone cream external. Voiced noticed urinary stream change, gets urethral dilation with frequency every 6 months, helps. Self caths at home if needs. She takes 1 Macrobid prophylactic after intercourse. Entered by Huong Hurst MA acting as scribe for Dr. Anthony Ibarra. Signature Huong Hurst MA Date 08/21/24 . Time 11:29 AM . The documentation recorded by the scribe accurately reflects the service(s) I personally performed and the decisions I made. Signature Kin Ibarra D.O. Date 08/21/24 Time 5:00PM. documented in this encounter [facility] 07-24-2024 Hospital Discharge instructions Patient Education 07/24/2024 11:26:30 Urethral Stricture Urethral Stricture Urethral stricture is when the tube that drains pee (urine) from the bladder out of the body (urethra) becomes too narrow. The urethra can become narrow because of scar tissue, infection, surgery, or an injury. This can make it difficult to pee (urinate). In females, the urethra opens above the vaginal opening. In males, the urethra opens at the tip of the penis, and the urethra is much longer than it is in females. Because of the length of the male urethra, urethral stricture is much more common in males. What are the causes? In males and females, common causes of urethral stricture include: Urinary tract infection (UTI). Sexually transmitted infection (STI). Using a soft tube in the urethra to drain pee from the bladder (urinary catheter). Urinary tract surgery. In males, common causes of urethral stricture include: A severe injury to the pelvis. Prostate surgery. Injury to the penis. In many cases, the cause of urethral stricture is not known. What increases the risk? You are more likely to develop this condition if you: Are male. Males who have had prostate surgery are at risk of developing this condition. Use a urinary catheter. Have had urinary tract surgery. What are the signs or symptoms? The main symptom of this condition is trouble peeing. This may cause decreased pee flow, dribbling, or spraying of pee. Other symptom of this condition may include: Frequent UTIs. Blood in the pee. Pain when peeing. Swelling of the penis in males. Not being able to pee. How is this diagnosed? This condition may be diagnosed based on: Your medical history and a physical exam. Tests of your pee to check for infection or bleeding. X-rays. Ultrasound. Retrograde urethrogram. With this test, a dye is injected into the urethra and then an X-ray is taken. Urethroscopy. This is when a thin tube with a light and camera on the end (urethroscope) is used to look at the urethra. A CT scan or MRI. How is this treated? This condition is treated with surgery or other procedures. The type of surgery that you have depends on the severity of your condition. You may have: Urethral dilation. In this procedure, the narrow part of the urethra is stretched open (dilated) with dilating instruments or a small balloon. Urethrotomy. In this procedure, a urethroscope is placed into the urethra, and the narrow part of the urethra is cut open with a surgical blade or laser inserted through the urethroscope. Urethroplasty. In this procedure, an incision is made in the urethra and the narrow part is removed. Then, the urethra is reconstructed. Follow these instructions at home: Take [id number]-uke-[id number] and prescription medicines only as told by your health care provider. If you were prescribed antibiotics, take them as told by your provider. Do not stop using the antibiotic even if you start to feel better. Drink enough fluid to keep your pee pale yellow. Keep all follow-up visits. Your provider will check your healing and adjust your treatment plan as needed. Contact a health care provider if: You have frequent peeing or you are only peeing small amounts often. You feel the need to pee urgently. You have pain or burning when you pee. Your pee smells bad or unusual. Your pee is bloody or cloudy. You have pain in your lower abdomen or back. Your genital area is swollen, bruised, or discolored. This includes: ?The penis, scrotum, and inner thighs for males. ?The outer genital organs (vulva) and inner thighs for females. You have a fever. You develop swelling in your legs. Get help right away if: You cannot pee. You have trouble breathing. These symptoms may be an emergency. Get help right away. Call 911. Do not wait to see if the symptoms will go away. Do not drive yourself to the hospital. This information is not intended to replace advice given to you by your health care provider. Make sure you discuss any questions you have with your health care provider. Document Revised: 08/31/2023 Document Reviewed: 08/31/2023 [employer] Patient Education 2023 [email or web address]. Follow Up Care 03/18/2024 13:19:19 With:LIS VENEGAS, Addi Mckeon, URL Address: [facility] [address] [place] [address]- When: Unknown [facility] 07-24-2024 Note Patient Education Urology Urethral Stricture Urethral stricture is when the tube that drains pee (urine) from the bladder out of the body (urethra) becomes too narrow. The urethra can become narrow because of scar tissue, infection, surgery, or an injury. This can make it difficult to pee (urinate). In females, the urethra opens above the vaginal opening. In males, the urethra opens at the tip of the penis, and the urethra is much longer than it is in females. Because of the length of the male urethra, urethral stricture is much more common in males. What are the causes? In males and females, common causes of urethral stricture include: ? Urinary tract infection (UTI). ? Sexually transmitted infection (STI). ? Using a soft tube in the urethra to drain pee from the bladder (urinary catheter). ? Urinary tract surgery. In males, common causes of urethral stricture include: ? A severe injury to the pelvis. ? Prostate surgery. ? Injury to the penis. In many cases, the cause of urethral stricture is not known. What increases the risk? You are more likely to develop this condition if you: ? Are male. Males who have had prostate surgery are at risk of developing this condition. ? Use a urinary catheter. ? Have had urinary tract surgery. What are the signs or symptoms? The main symptom of this condition is trouble peeing. This may cause decreased pee flow, dribbling, or spraying of pee. Other symptom of this condition may include: ? Frequent UTIs. ? Blood in the pee. ? Pain when peeing. ? Swelling of the penis in males. ? Not being able to pee. How is this diagnosed? This condition may be diagnosed based on: ? Your medical history and a physical exam. ? Tests of your pee to check for infection or bleeding. ? X-rays. ? Ultrasound. ? Retrograde urethrogram. With this test, a dye is injected into the urethra and then an X-ray is taken. ? Urethroscopy. This is when a thin tube with a light and camera on the end (urethroscope) is used to look at the urethra. ? A CT scan or MRI. How is this treated? This condition is treated with surgery or other procedures. The type of surgery that you have depends on the severity of your condition. You may have: ? Urethral dilation. In this procedure, the narrow part of the urethra is stretched open (dilated) with dilating instruments or a small balloon. ? Urethrotomy. In this procedure, a urethroscope is placed into the urethra, and the narrow part of the urethra is cut open with a surgical blade or laser inserted through the urethroscope. ? Urethroplasty. In this procedure, an incision is made in the urethra and the narrow part is removed. Then, the urethra is reconstructed. Follow these instructions at home: ? Take johw-cgw-dhdctxy and prescription medicines only as told by your health care provider. ? If you were prescribed antibiotics, take them as told by your provider. Do not stop using the antibiotic even if you start to feel better. ? Drink enough fluid to keep your pee pale yellow. ? Keep all follow-up visits. Your provider will check your healing and adjust your treatment plan as needed. Contact a health care provider if: ? You have frequent peeing or you are only peeing small amounts often. ? You feel the need to pee urgently. ? You have pain or burning when you pee. ? Your pee smells bad or unusual. ? Your pee is bloody or cloudy. ? You have pain in your lower abdomen or back. ? Your genital area is swollen, bruised, or discolored. This includes: ? The penis, scrotum, and inner thighs for males. ? The outer genital organs (vulva) and inner thighs for females. ? You have a fever. ? You develop swelling in your legs. Get help right away if: ? You cannot pee. ? You have trouble breathing. These symptoms may be an emergency. Get help right away. Call 911. ? Do not wait to see if the symptoms will go away. ? Do not drive yourself to the hospital. This information is not intended to replace advice given to you by your health care provider. Make sure you discuss any questions you have with your health care provider. Document Revised: 08/31/2023 Document Reviewed: 08/31/2023 [employer] Patient Education ? 2023 [email or web address]. [facility] 07-28-2023 Hospital Discharge instructions Patient Education 07/28/2023 12:21:24 Abdominal Pain, Adult Abdominal Pain, Adult Pain in the abdomen (abdominal pain) can be caused by many things. Often, abdominal pain is not serious and it gets better with no treatment or by being treated at home. However, sometimes abdominal pain is serious. Your health care provider will ask questions about your medical history and do a physical exam to try to determine the cause of your abdominal pain. Follow these instructions at home: Medicines Take nojr-mmm-lvmdpdc and prescription medicines only as told by your health care provider. Do not take a laxative unless told by your health care provider. General instructions Watch your condition for any changes. Drink enough fluid to keep your urine pale yellow. Keep all follow-up visits as told by your health care provider. This is important. Contact a health care provider if: Your abdominal pain changes or gets worse. You are not hungry or you lose weight without trying. You are constipated or have diarrhea for more than 2 3 days. You have pain when you urinate or have a bowel movement. Your abdominal pain wakes you up at night. Your pain gets worse with meals, after eating, or with certain foods. You are vomiting and cannot keep anything down. You have a fever. You have blood in your urine. Get help right away if: Your pain does not go away as soon as your health care provider told you to expect. You cannot stop vomiting. Your pain is only in areas of the abdomen, such as the right side or the left lower portion of the abdomen. Pain on the right side could be caused by appendicitis. You have bloody or black stools, or stools that look like tar. You have severe pain, cramping, or bloating in your abdomen. You have signs of dehydration, such as: ?Dark urine, very little urine, or no urine. ?Cracked lips. ?Dry mouth. ?Sunken eyes. ?Sleepiness. ?Weakness. You have trouble breathing or chest pain. Summary Often, abdominal pain is not serious and it gets better with no treatment or by being treated at home. However, sometimes abdominal pain is serious. Watch your condition for any changes. Take dlnz-seb-vzzuyeh and prescription medicines only as told by your health care provider. Contact a health care provider if your abdominal pain changes or gets worse. Get help right away if you have severe pain, cramping, or bloating in your abdomen. This information is not intended to replace advice given to you by your health care provider. Make sure you discuss any questions you have with your health care provider. Document Revised: 12/25/2020 Document Reviewed: 03/16/2020 [employer] Patient Education 2022 [email or web address]. [facility] Up [facility] 07/28/2023 08:16:03 With:FESTUS DICKERSON Address: [address] [place] [phone] Business (1) When:07/31/2023 12:19:01 Comments:Call the office of your primary care doctor to arrange for follow-up within the above-stated timeframe. Follow-up with your primary care doctor about this ED visit. You should review your labs, imaging, and diagnoses from this ED visit with your primary care physician. There are occasionally non-emergent findings that require additional follow-up after your ED visit. If you were prescribed medications you should discuss possible side-effects and drug interactions with your pharmacist. Call 911 or go to the nearest Emergency Department if you develop any new or worsening symptoms.Seek immediate medical attention if you develop:worsening abdominal pain, new or worsening nausea, new or worsening vomiting, new or worsening diarrhea, chest pain, shortness of breath, pain with urination, problems urinating, fever, chills, weakness, or any new or worsening symptoms. [facility] 07-28-2023 Evaluation + Plan note Extrac cookie from: Title:ED Note Author:Arvind Ross DO Date: Abdominal pain, colicky (R10 .84: Generalized abdominal pain) Orders: acetaminophen + Generic Diluent 100 mL, 1,000 mg = 100 mL, Soln-IV, IV Piggyback, Once, Stop date 07/28/23 10:02:00 EDT, STAT, Start date 07/28/23 10:02:00 EDT, 400 mL/hr, Infuse over 15 minute(s) dicyclomine, 10 mg = 1 cap(s), Oral, QID, PRN Other (see comment), For abdominal cramping, # 28 cap(s), Refills(s) 0, Pharmacy: [facility] #[id number], 158, cm, 07/28/23 8:32:00 EDT, Height/Length Dosing, 59.7, kg, 07/28/23 8:32:00 EDT, Weight Dosing ketorolac, 15 mg = 1 mL, Injection, IV Push, Once, Stop date 07/28/23 10:02:00 EDT, STAT, Start date 07/28/23 10:02:00 EDT, 07/28/23 10:02:00 EDT Sodium Chloride 0.9% intravenous solution, 1,000 mL, Soln-IV, IV, Once, Stop date 07/28/23 8:39:00 EDT, STAT, Start date 07/28/23 8:39:00 EDT, Infuse over 61, minute(s) Automated Diff Basic Metabolic Panel CBC w/ Auto Diff CT Abdomen/Pelvis w/ Contrast ECG 12 Lead Adult ED Cardiac Monitoring eGFR Extra Blue Tube Extra SST Tube Hepatic Function Panel Lipase Level Saline Lock Insert UA With Cult Reflex [facility]07-26-2023 Hospital Discharge instructions Patient Education 06/14/2023 09:45:20 Urethral Stricture Urethral Stricture Urethral stricture is narrowing of the tube (urethra) that carries urine from the bladder out of the body. The urethra can become narrow due to scar tissue from an injury or infection. This can make it difficult to pass urine. In women, the urethra opens above the vaginal opening. In men, the urethra opens at the tip of the penis, and the urethra is much longer than it is in women. Because of the length of the male urethra, urethral stricture is much more common in men. This condition is treated with surgery. What are the causes? In both men and women, common causes of urethral stricture include: Urinary tract infection (UTI). Sexually transmitted infection (STI). Use of a tube placed into the urethra to drain urine from the bladder (urinary catheter). Urinary tract surgery. In men, common causes of urethral stricture include: A severe injury to the pelvis. Prostate surgery. Injury to the penis. In many cases, the cause of urethral stricture is not known. What increases the risk? You are more likely to develop this condition if you: Are male. Men who have had prostate surgery are at risk of developing this condition. Use a urinary catheter. Have had urinary tract surgery. What are the signs or symptoms? The main symptom of this condition is difficulty passing urine. This may cause decreased urine flow, dribbling, or spraying of urine. Other symptom of this condition may include: Frequent UTIs. Blood in the urine. Pain when urinating. Swelling of the penis in men. Inability to pass urine (urinary obstruction). How is this diagnosed? This condition may be diagnosed based on: Your medical history and a physical exam. Urine tests to check for infection or bleeding. X-rays. Ultrasound. Retrograde urethrogram. This is a type of test in which dye is injected into the urethra and then an X-ray is taken. Urethroscopy. This is when a thin tube with a light and camera on the end (urethroscope) is used tolook at the urethra. How is this treated? This condition is treated with surgery. The type of surgery that you have depends on the severity of your condition. You may have: Urethral dilation. In this procedure, the narrow part of the urethra is stretched open (dilated) with dilating instruments or a small balloon. Urethrotomy. In this procedure, a urethroscope is placed into the urethra, and the narrow part of the urethra is cut open with a surgical blade inserted through the urethroscope. Open surgery. In this procedure, an incision is made in the urethra, the narrow part is removed, and the urethra is reconstructed. Follow these instructions at home: Take lzaw-vfp-gddulfk and prescription medicines only as told by your health care provider. If you were prescribed an antibiotic medicine, take it as told by your health care provider. Do notstop taking the antibiotic even if you start to feel better. Drink enough fluid to keep your urine pale yellow. Keep all follow-up visits as told by your health care provider. This is important. Contact a health care provider if: You have signs of a urinary tract infection, such as: ?Frequent urination or passing small amounts of urine frequently. ?Needing to urinate urgently. ?Pain or burning with urination. ?Urine that smells bad or unusual. ?Cloudy urine. ?Pain in the lower abdomen or back. ?Trouble urinating. ?Blood in the urine. ?Vomiting or being less hungry than normal. ?Diarrhea or abdominal pain. ?Vaginal discharge, if you are female. Your symptoms are getting worse instead of better. Get help right away if: You cannot pass urine. You have a fever. You have swelling, bruising, or discoloration of your genital area. This includes the penis, scrotum, and inner thighs for men, and the outer genital organs (vulva) and inner thighs for women. You develop swelling in your legs. You have difficulty breathing. Summary Urethral stricture is narrowing of the tube (urethra) that carries urine from the bladder out of the body. The urethra can become narrow due to scar tissue from an injury or infection. This condition can make it difficult to pass urine. This condition is treated with surgery. The type of surgery that you have depends on the severity of your condition. Contact a health care provider if your symptoms get worse or you have signs of a urinary tract infection. This information is not intended to replace advice given to you by your health care provider. Make sure you discuss any questions you have with your health care provider. Document Revised: 09/13/2022 Document Reviewed: 09/13/2022 [employer] Patient Education 2022 [email or web address]. Follow Up Care 12/28/2022 15:36:29 With:LIS VENEGAS, Addi Mckeon, URL Address: [address] [place] [phone]- When: Unknown [facility] 09-13-2022 Hospital Discharge instructions Patient Education 08/02/2022 11:55:27 Urethral Dilation Urethral Dilation Urethral dilation is a procedure to stretch open (dilate) the urethra. The urethra is the tube thatdrains urine from the bladder out of the body. In women, the urethra opens above the vaginal opening. In men, the urethra opens at the tip of the penis. Urethral dilation is usually done to treat narrowing of the urethra (urethral stricture), which can make it difficult to pass urine. Urethral dilation widens the urethra so that you can pass urine normally. Urethral dilation is done through the urethral opening. There are no incisions made during the procedure. Tell a health care provider about: Any allergies you have. All medicines you are taking, including vitamins, herbs, eye drops, creams, and wqxy-aow-smywuwm medicines. Any problems you or family members have had with anesthetic medicines. Any blood disorders you have. Any surgeries you have had. Any medical conditions you have. Whether you are or may be . What are the risks? Generally, this is a safe procedure. However, problems may occur, including: Bleeding. Infection. A return of urethral stricture, which requires repeating the dilation procedure. Damage to the urethra, which may require reconstructive surgery. Allergic reactions to medicines. What happens before the procedure? Medicines Ask your health care provider about: Changing or stopping your regular medicines. This is especially important if you are taking diabetes medicines or blood thinners. Taking medicines such as aspirin and ibuprofen. These medicines can thin your blood. Do not take these medicines unless your health care provider tells you to take them. Taking tkoa-hxa-zysatse medicines, vitamins, herbs, and supplements. General instructions Follow instructions from your health care provider about eating or drinking restrictions. Plan to have someone take you home from the hospital or clinic. If you will be going home right after the procedure, plan to have someone with you for 24 hours. Ask your health care provider what steps will be taken to help prevent infection. These may include: ?Washing skin with a germ-killing soap. ?Taking antibiotic medicine. What happens during the procedure? An IV may be inserted into one of your veins. You will be given one or more of the following medicines: ?A local anesthetic to numb your urethral opening. This will be applied as a gel that will also lubricate the urethral opening. ?A sedative to help you relax. A thin tube with a light and camera on the end (cystoscope) will be inserted into your urethra. Your urethra will be rinsed (irrigated) with a germ-free (sterile) water solution. Narrow parts of your urethra will be stretched open using a dilator tool. Your surgeon will start with a very thin dilator, then use wider dilators as needed. A thin tube with an inflatable balloon on the tip may be inserted into your urethra. The balloon may be inflated to help stretch your urethra open. Your urethra will be irrigated. The procedure may vary among health care providers and hospitals. What can I expect after the procedure? After the procedure, it is common to have: ?Burning pain when urinating. ?Blood in your urine. ?A need to urinate frequently. You will be asked to urinate before you leave the hospital or clinic. Your urine flow should improve within a few days. Follow these instructions at home: Medicines Take bdyc-qdn-wvxnyps and prescription medicines only as told by your health care provider. If you were prescribed an antibiotic medicine, take it as told by your health care provider. Do notstop taking the antibiotic even if you start to feel better. Ask your health care provider if the medicine prescribed to you: ?Requires you to avoid driving or using heavy machinery. ?Can cause constipation. You may need to take these actions to prevent or treat constipation: ?Take etts-hid-hvgjsiu or prescription medicines. ?Eat foods that are high in fiber, such as beans, whole grains, and fresh fruits and vegetables. ?Limit foods that are high in fat and processed sugars, such as fried or sweet foods. General instructions Do not drive for 24 hours if you were given a sedative during your procedure. If you were sent home with a small, lubricated tube (catheter) to help keep your urethra open, follow your health care provider's instructions about how and when to use it. Drink enough fluid to keep your urine pale yellow. Return to your normal activities as told by your health care provider. Ask your health care provider what activities are safe for you. Keep all follow-up visits as told by your health care provider. This is important. Contact a health care provider if: Your urine is cloudy and smells bad. You develop new bleeding when you urinate. You pass blood clots when you urinate. You have pain that does not get better with medicine. You have a fever. You have swelling, bruising, or discoloration of your genital area. This includes the penis, scrotum, and inner thighs for men, and the outer genital organs (vulva) and inner thighs for women. Get help right away if: You develop new bleeding that does not stop. You cannot pass urine. Summary Urethral dilation is a procedure to stretch open (dilate) the urethra. Urethral dilation is usually done to treat narrowing of the urethra (urethral stricture), which canmake it difficult to pass urine. Ask your health care provider about changing or stopping your regular medicines before the procedure. After the procedure, it is common to have burning pain when urinating, blood in your urine, and a need to urinate frequently. This information is not intended to replace advice given to you by your health care provider. Make sure you discuss any questions you have with your health care provider. Document Released: 12/02/2016 Document Revised: 12/19/2019 Document Reviewed: 12/19/2019 [employer]afety Patient Education 2020 [email or web address]. Follow Up Care 02/16/2022 12:15:25 With:LIS VENEGAS, Addi Mckeon, URL Address: [address] [place] [address]- When:6 months Comments: [facility] [phone] Hospital Discharge instructions Patient Education 02/16/2022 12:12:22 Kegel Exercises Kegel Exercises Kegel exercises can help strengthen your pelvic floor muscles. The pelvic floor is a group of muscles that support your rectum, small intestine, and bladder. In females, pelvic floor muscles also help support the womb (uterus). These muscles help you control the flow of urine and stool. Kegel exercises are painless and simple, and they do not require any equipment. Your provider may suggest Kegel exercises to: Improve bladder and bowel control. Improve sexual response. Improve weak pelvic floor muscles after surgery to remove the uterus (hysterectomy) or (females). Improve weak pelvic floor muscles after prostate gland removal or surgery (males). Kegel exercises involve squeezing your pelvic floor muscles, which are the same muscles you squeezewhen you try to stop the flow of urine or keep from passing gas. The exercises can be done while sitting, standing, or lying down, but it is best to vary your position. Exercises How to do Kegel exercises: 1.Squeeze your pelvic floor muscles tight. You should feel a tight lift in your rectal area. If youare a female, you should also feel a tightness in your vaginal area. Keep your stomach, buttocks, and legs relaxed. 2.Hold the muscles tight for up to 10 seconds. 3.Breathe normally. 4.Relax your muscles. 5.Repeat as told by your health care provider. Repeat this exercise daily as told by your health care provider. Continue to do this exercise for at least 4 6 weeks, or for as long as told by your health care provider. You may be referred to a physical therapist who can help you learn more about how to do Kegel exercises. Depending on your condition, your health care provider may recommend: Varying how long you squeeze your muscles. Doing several sets of exercises every day. Doing exercises for several weeks. Making Kegel exercises a part of your regular exercise routine. This information is not intended to replace advice given to you by your health care provider. Make sure you discuss any questions you have with your health care provider. Document Released: 10/23/2013 Document Revised: 06/26/2019 Document Reviewed: 06/26/2019 [employer] Patient Education 2020 [email or web address]. 02/16/2022 12:04:47 Urethral Stricture Urethral Stricture Urethral stricture is narrowing of the tube (urethra) that carries urine from the bladder out of the body. The urethra can become narrow due to scar tissue from an injury or infection. This can make it difficult to pass urine. In women, the urethra opens above the vaginal opening. In men, the urethra opens at the tip of the penis, and the urethra is much longer than it is in women. Because of the length of the male urethra, urethral stricture is much more common in men. This condition is treated with surgery. What are the causes? In both men and women, common causes of urethral stricture include: Urinary tract infection (UTI). Sexually transmitted infection (STI). Use of a tube placed into the urethra to drain urine from the bladder (urinary catheter). Urinary tract surgery. In men, common causes of urethral stricture include: A severe injury to the pelvis. Prostate surgery. Injury to the penis. In many cases, the cause of urethral stricture is not known. What increases the risk? You are more likely to develop this condition if you: Are male. Men who have had prostate surgery are at risk of developing this condition. Use a urinary catheter. Have had urinary tract surgery. What are the signs or symptoms? The main symptom of this condition is difficulty passing urine. This may cause decreased urine flow, dribbling, or spraying of urine. Other symptom of this condition may include: Frequent UTIs. Blood in the urine. Pain when urinating. Swelling of the penis in men. Inability to pass urine (urinary obstruction). How is this diagnosed? This condition may be diagnosed based on: Your medical history and a physical exam. Urine tests to check for infection or bleeding. X-rays. Ultrasound. Retrograde urethrogram. This is a type of test in which dye is injected into the urethra and then an X-ray is taken. Urethroscopy. This is when a thin tube with a light and camera on the end (urethroscope) is used tolook at the urethra. How is this treated? This condition is treated with surgery. The type of surgery that you have depends on the severity of your condition. You may have: Urethral dilation. In this procedure, the narrow part of the urethra is stretched open (dilated) with dilating instruments or a small balloon. Urethrotomy. In this procedure, a urethroscope is placed into the urethra, and the narrow part of the urethra is cut open with a surgical blade inserted through the urethroscope. Open surgery. In this procedure, an incision is made in the urethra, the narrow part is removed, and the urethra is reconstructed. Follow these instructions at home: Take nxca-mzh-wknokcx and prescription medicines only as told by your health care provider. If you were prescribed an antibiotic medicine, take it as told by your health care provider. Do notstop taking the antibiotic even if you start to feel better. Drink enough fluid to keep your urine pale yellow. Keep all follow-up visits as told by your health care provider. This is important. Contact a health care provider if: You have signs of a urinary tract infection, such as: ?Frequent urination or passing small amounts of urine frequently. ?Needing to urinate urgently. ?Pain or burning with urination. ?Urine that smells bad or unusual. ?Cloudy urine. ?Pain in the lower abdomen or back. ?Trouble urinating. ?Blood in the urine. ?Vomiting or being less hungry than normal. ?Diarrhea or abdominal pain. ?Vaginal discharge, if you are female. Your symptoms are getting worse instead of better. Get help right away if: You cannot pass urine. You have a fever. You have swelling, bruising, or discoloration of your genital area. This includes the penis, scrotum, and inner thighs for men, and the outer genital organs (vulva) and inner thighs for women. You develop swelling in your legs. You have difficulty breathing. Summary Urethral stricture is narrowing of the tube (urethra) that carries urine from the bladder out of the body. The urethra can become narrow due to scar tissue from an injury or infection. This condition can make it difficult to pass urine. This condition is treated with surgery. The type of surgery that you have depends on the severity of your condition. Contact a health care provider if your symptoms get worse or you have signs of a urinary tract infection. This information is not intended to replace advice given to you by your health care provider. Make sure you discuss any questions you have with your health care provider. Document Released: 12/02/2016 Document Revised: 06/19/2019 Document Reviewed: 06/19/2019 [employer] Patient Education 2020 [email or web address]. Follow Up Care 09/27/2021 09:56:38 With:LIS VENEGAS, Addi Mckeon, URL Address: When:08/19/2022 Comments:In Office UD [facility] 01-10-2022 Evaluation note* Encounter Date Diagnosis Assessment Notes Treatment Notes Treatment Clinical Notes Nov, Irritable bowel syndrome with constipation (ICD-10 - K58.1) Nov, Peptic ulcer disease (ICD-10 - K27.9) Nov, LUQ abdominal pain (ICD-10 - R10.12) Nov, Other PT TO REPORT PROGRESS [employer] Other 09-28-2021 Evaluation note* Encounter Date Diagnosis Assessment Notes Treatment Notes Treatment Clinical Notes Jul, Irritable bowel syndrome with constipation (ICD-10 - K58.1) Jul, Left flank pain (ICD-10 - R10.9) Jul, History of renal calculi (ICD-10 - Z87.442) Jul, Other START TRIAL LINZESS 145 MCG DAILY STOP MIRALAX OBTAIN CT FROM [facility] F/U HERE ONE MONTH MAY CONSIDER REPEAT CT OR COLONOSCOPY Abdominal pain: adult home care material was printed [employer] Other Evaluation + Plan note Future Appointments Appointment Date:08/02/2022 11:00:00 AM Scheduled Provider:Addi HAYS MD Location:[facility] Appointment Type:URO Office Visit Future Scheduled Tests Radiology* ECG Stress Exercise 09/07/21 [facility] Evaluation + Plan note Future Appointments Appointment Date:01/02/2023 09:30:00 AM Scheduled Provider:Addi HAYS MD Location:[facility] Appointment Type:URO Office Visit Future Scheduled Tests Radiology* ECG Stress Exercise 09/07/21 [facility] Evaluation + Plan note Future Appointments Appointment Date:06/14/2023 09:15:00 AM Scheduled Provider:Addi HAYS MD Location:[facility] Appointment Type:URO Office Visit Diagnostic Tests Pending * T3 Free 02/06/23 * Thyroid [facility]ox[facility]ments Appointment Date:06/14/2023 09:15:00 AM Scheduled Provider:Addi HAYS MD Location:[facility]ments Appointment Date:01/29/2025 09:30:00 AM Scheduled Provider:Addi HAYS MD Location:[facility] Appointment Type:URO Office Visit [facility] evaluation noteNo InformationNort [employer] Other evaluation noteNo assessment information available [facility] Work Phone: Evaluation note* Diagnosis Encounter for gynecological examination without abnormal finding- Primary Encounter for Papanicolaou smear of vagina Breast cancer screening by mammogram Hormone replacement therapy (HRT) Vaginal itching Pruritus of genital organs documented in this encounter [facility] N[facility]ative - Reported* Type Description Date Medical History renal calculi Medical History HTN Medical History IBS Surgical History appendectomy Surgical History cholecystectomy Surgical History hysterectomy Surgical History lithotripsy Hospitalization History SEE ABOVE Hospitalization History COVID Chest Pain aug 04 -aug 05 [facility] [employer] Other Hospital course Narrative No data available for this section [facility] Discharge instructions No data available for this section [facility] No data available for this section [facility] Bassam Reason for visit NarrativePT HERE AT REQUEST OF DR DICKERSON FOR EVALUATION AND TREATMENT OF ABDOMINAL PAIN / IRRITABLE BOWEL SYNDROME, [facility] [employer] Other Summary Purpose Family History No Family History Records FoundNo Family History Records FoundNo Family History Records FoundNo Family History Records Found No data available for this section No Family History Records Found Advance Directives Advance Directive Response Recorded Date/ Time Advance Directives No July 12:18pm Chief Complaint and Reason for Visit Chief Complaint Pre-Surgical Testing Additional Source Comments INFORMATION SOURCE (unrecogn ized section and content) DATE CREATED AUTHOR 05/10/2018 [facility] DATE CREATED AUTHOR AUTHOR'S ORGANIZ ATION 06/11/2022 [facility] DATE CREATED AUTHOR AUTHOR'S ORGANIZ ATION 12/24/2022 [facility] DATE CREATED AUTHOR AUTHOR'S ORGANIZ ATION 07/25/2024 [facility] DATE CREATED AUTHOR AUTHOR'S ORGANIZ ATION 08/23/2024 [facility] EPIC REASON FOR VISIT (unrecogniz ed section and content) Reason Comments Gynecologic Exam Accompanied by Willard aaron nd. LMP: MAGDIEL 1997HRT: Estradiol 0.5 MG - satisfied.Last pap 04-11-23 neg.Last mammogram 04-25-23 [facility] [place].Denies breast, urinary, or bowel concerns. Care Teams (unrecognized sec tion and content) Team Status: Inactive Member Role Status Dates Festus Dickerson , Primary Care Provider Active Carlos Goldman DPM Attending Provider Active Team Status: Active Member Role Status Dates Festus Dickerson , Primary Care Provider Active [employer] Relationship Specialty Start Date End Date Festus Dickerson MD PCP - General Internal Medicine 04/11/23 Goals (unrecognized section and content) Goals may be documented in a n alternate section FOR RECORDS PERTAINING TO PATIENTS WHO ARE OR HAVE BEEN ENROLLED IN A CHEMICAL DEPENDENCY/SUBSTANCEABUSE PROGRAM, SOME INFORMATION MAY BE OMITTED. This clinical summary was aggregated from multiple sources. Caution should be exercised in using it in the provision of clinical care. This summary normalizes information from multiple sources, and as a consequence, information in this document may materially change the coding, format and clinical context of patient data. In addition, data may be omitted in some cases. CLINICAL DECISIONS SHOULD BE BASED ON THE PRIMARY CLINICAL RECORDS. [employer] provides no warranty or guarantee of the accuracy or completeness of information in this document.
== END 2024-11-01 11:39 | disposition home or self-care (01) ==
LOC: US 11:40
PROVIDERS: PCP Internal Medicine; Visit Provider Internal Medicine
DX: M79.89 Other specified soft tissue disorders (principal); M54.50 Low back pain, unspecified; M25.552 Pain in left hip; M51.369 Other intervertebral disc degeneration, lumbar region without mention of lumbar back pain or lower extremity pain
CPT/HCPCS: 72100; 73502; 93971

== ENCOUNTER 2024-12-27 10:58 | Outpatient (OUT) | payer MEDICAID, SELFPAY ==
--- NOTE | 2024-12-27 11:14 | US_ITS ---
The [address] [address] Patient Name: SHIMON FRYE MRN: [id number] date: 1965 Sex: F Assigned Patient Location: US Current Patient Location: US Accession/Order Number: [id number] Exam Date: 12/27/2024 11:16 Report Date: 12/27/2024 14:36 At the request of: RIGO GARZA Procedure: US extremity nonvascular LT EXAMINATION: US extremity nonvascular LT HISTORY: Lipoma Of Thigh COMPARISON: No relevant comparison available. FINDINGS: Ultrasound the region of the patient's palpable abnormality demonstrates a oval well-circumscribed smooth soft tissue echogenicity mass, isoechoic to the surrounding subcutaneous fat with Isovue vascularity. This lesion measures 3.7 x 5.4 x 1.8 cm in the superficial to muscle US/US extremity nonvascular LT IMPRESSION: 5.4 cm mass corresponding to the patient's palpable abnormality, a lipoma is favored Electronically authenticated by: JODIE CASTRO Date: 12/27/2024 14:36
== END 2024-12-27 10:59 | disposition home or self-care (01) ==
LOC: US 10:59
PROVIDERS: PCP Internal Medicine; Visit Provider Internal Medicine
DX: D17.24 Benign lipomatous neoplasm of skin and subcutaneous tissue of left leg (principal); D17.20 Benign lipomatous neoplasm of skin and subcutaneous tissue of unspecified limb
CPT/HCPCS: 76882

== ENCOUNTER 2025-03-20 09:41 | Outpatient (OUT) | payer MEDICAID, SELFPAY ==
--- NOTE | 2025-03-20 09:44 | MR_ITS ---
[address] [address] Patient Name: SHIMON FRYE MRN: [id number] date: 1965 Sex: F Assigned Patient Location: MRI Current Patient Location: MRI Accession/Order Number: [id number] Exam Date: 03/20/2025 11:59 Report Date: 03/20/2025 12:03 At the request of: RIGO GARZA DO Procedure: MR hip LT wo con EXAMINATION: MRI OF THE LEFT HIP CLINICAL HISTORY: Left hip pain for 8 months. COMPARISON: Left hip series 11/01/2024 TECHNIQUE: Multiecho, multiplanar imaging was performed with use of an extremity coil. No contrast was administered. FINDINGS: Bones/Joint: No bone marrow edema. No fracture. Minimal joint effusion. No bony spurring. No avascular necrosis. Visualized left pubic rami appear intact. Labrum: No definitive tear. Muscles: Normal Soft tissues: Normal Pelvic contents: No acute findings. MR/MR hip LT wo con IMPRESSION: MINIMAL JOINT EFFUSION. NO ACUTE FRACTURE, BONE CONTUSION, SIGNIFICANT DEGENERATIVE CHANGE OR AVASCULAR NECROSIS. Impression dictated by: Doug Hogan Jr., D.O. 03/20/2025 12:03 PM Dictation Location: [place] [address] Electronically authenticated by: [id number] Y Date: 03/20/2025 12:03
== END 2025-03-20 09:42 | disposition home or self-care (01) ==
LOC: MRI 09:41
PROVIDERS: PCP Internal Medicine; Visit Provider Internal Medicine
DX: M25.552 Pain in left hip (principal); S73.199A Other sprain of unspecified hip, initial encounter; M25.452 Effusion, left hip
CPT/HCPCS: 73721